=== PATIENT | male | born 1950 | race Caucasian/White ===

== ENCOUNTER 2018-08-21 14:33 | Inpatient (IN) ==
--- NOTE | 2018-08-21 15:01 | Diag Imaging Result Doc PS360 ---
EXAM: CT HEAD W/O CONTRAST 08/21/2018 HISTORY: LEFT SIDED NUMBNESS TECHNIQUE: This exam was performed using automated exposure control, adjustment of mA or kV according to patient size, and/or use of iterative reconstruction technique. COMMENT: There is no evidence of mass effect, bleed, abnormal extra-axial fluid collection, or hydrocephalus. There is a small lacune in the thalamus on the right. There is hyperostosis of the calvarium which is otherwise intact. The paranasal sinuses are clear. IMPRESSION: Chronic ischemic changes. No evidence of acute intracranial disease. Electronically signed by Rob Adamson 08/21/2018 2:59 PM
--- NOTE | 2018-08-21 15:26 | PROVIDER DOCUMENTATION ---
HPI-Chest Pain - General Chief Complaint: Chest Pain Stated Complaint: CHEST TIGHTNESS,LEFT ARM TINGLING,COUGHING Time Seen by Provider: 08/21/18 15:12 Source: patient Allergies/Adverse Reactions: Patient Allergies Allergy/AdvReac Type Severity Reaction Status Date / Time No Known Allergies Allergy Verified 08/21/18 15:35 Home Medications: Home Medication List Medication Instructions Recorded Confirmed Last Taken Type Carvedilol 25 mg PO BID 07/19/12 12/13/14 12/12/14 21:00 History Hydrocodone Bit/Acetaminophen 0 each PO PRN PRN 12/13/14 12/13/14 Unknown History [Hydrocodon-Acetaminoph 7.5-325] Insulin Aspart [Novolog] 0 unit SQ TID 12/13/14 12/13/14 12/12/14 22:00 History Insulin Glargine [Lantus] 60 unit SUBQ QHS 12/13/14 12/13/14 12/12/14 23:30 History Mycophenolate Mofetil [Cellcept] 250 mg PO BID 12/13/14 12/13/14 12/12/14 21:00 History Nifedipine [Nifedipine ER] 60 mg PO QAM 12/13/14 12/13/14 12/12/14 09:00 History Pravastatin Sodium 80 mg PO HS 12/13/14 12/13/14 12/12/14 21:00 History Prednisone 5 mg PO QAM 12/13/14 12/13/14 12/12/14 09:00 History Pregabalin [Lyrica] 50 mg PO DAILY 12/13/14 12/13/14 12/12/14 21:00 History Tacrolimus 0.5 mg PO BID 12/13/14 12/13/14 12/12/14 21:00 History Valacyclovir HCl [Valacyclovir] 1,000 mg PO TID 12/13/14 12/13/14 12/12/14 21:00 History - History of Present Illness-CP Location: reports: substernal Chest Pain Radiation: reports: no radiation Quality of Pain: reports: tightness Severity in ED: mild Onset/Duration: just prior to arrival Timing: improving Context/Activities at Onset: reports: none Modifying Factors: improves with: nothing Associated Symptoms: reports: denies symptoms Nitro Today/Relief: no nitro taken today Aspirin Treatment Today: no aspirin today Similar Symptoms Previously?: No Recently Seen Here or By Another Healthcare Provider: No Review of Systems - Adult - REVIEW OF SYSTEMS - ADULT Constitutional: reports: no symptoms reported Eyes: reports: no symptoms reported Ears, Nose, Mouth & Throat: reports: no symptoms reported Cardiovascular: reports: no symptoms reported Respiratory: reports: no symptoms reported Gastrointestinal: reports: no symptoms reported Genitourinary: reports: no symptoms reported Musculoskeletal: reports: no symptoms reported Integumentary: reports: no symptoms reported Neurological: reports: numbness (L Side), other (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) Psychiatric: reports: no symptoms reported Endocrine: reports: no symptoms reported Hematologic/Lymphatic: reports: no symptoms reported Allergic/Immunologic: reports: no symptoms reported Past History - Adult - PAST MEDICAL HISTORY-ADULT Review of Records: reports: Nursing Assessment Review Cardiovascular: reports: HTN, ND Respiratory: reports: denies history Gastrointestinal: reports: denies history Obstetrical/Gynecological: reports: denies history Genitourinary: reports: ESRD, other (kidney transplant) Neurological: reports: denies history Psychiatric: reports: denies history Endocrine/Immune: reports: denies history, Diabetes - PRIOR SURGERIES/PROCEDURES Surgical/Procedure History: reports: appendectomy, other (kidney transplant) - IMMUNIZATION STATUS Childhood Immunizations: See Nurse Assessment Flu Vaccine: See Nurse Assessment Physical Exam-General - PHYSICAL EXAM-ADULT Initial Vital Signs Reviewed: Yes - CONSTITUTIONAL General Appearance: appears well, alert, no apparent distress - EYES Eyes: PERRL/EOMI, pink conjunctivae - HEAD, EARS, NOSE, MOUTH & THROAT HENMT: normocephalic/atraumatic, moist mucous membranes - NECK Neck: non-tender, full range of motion - RESPIRATORY Respiratory: chest non-tender, lungs clear - CARDIOVASCULAR Cardiovascular: normal peripheral pulses, regular rate, rhythm - GASTROINTESTINAL (ABDOMEN) Abdominal Exam: normal bowel sounds, non tender - LYMPHATIC Lymphatic: no adenopathy - MUSCULOSKELETAL Back Exam: normal inspection Extremity: normal range of motion, non-tender - SKIN Integumentary: normal color, normal turgor - NEUROLOGIC Neurologic: grossly normal - PSYCHIATRIC Psych/Mental Status: normal mood/affect, oriented x 3 - HEART Score HEART Score: History: Moderately Suspicious HEART Score: ECG: Normal HEART Score: Age: > or = 65 Years HEART Score: Risk Factors for Atherosclerotic Disease: 1 or 2 Risk Factors Progress - PLAN OF CARE/RESULTS Progress/Plan/Lab Results: Vital Signs - 8 hr 08/21/18 14:55 08/21/18 17:57 08/21/18 18:02 Temperature 98.3 F 97.7 F Pulse Rate 68 67 66 Respiratory Rate 18 21 14 Blood Pressure 163/80 172/86 167/82 O2 Sat by Pulse Oximetry 95 95 95 Laboratory Results - last 24 hr 08/21/18 08/21/18 08/21/18 15:11 15:11 15:11 WBC 7.25 RBC 4.29 L Hgb 12.3 L Hct 39.6 L MCV 92.3 MCH 28.7 MCHC 31.1 L RDW Std Deviation 13.9 Plt Count 157 MPV 11.8 H Immature Gran % (Auto) 0.3 Neut % (Auto) 78.7 H Lymph % (Auto) 10.8 L Braxton % (Auto) 7.9 Eos % (Auto) 1.9 Baso % (Auto) 0.4 Immature Gran # (Auto) 0.02 Neut # (Auto) 5.71 Lymph # (Auto) 0.78 L Braxton # (Auto) 0.57 Eos # (Auto) 0.14 Baso # (Auto) 0.03 PT 13.7 INR 0.97 PTT (Actin FS) 26.8 Sodium 141 Potassium 5.4 H Chloride 108 H Carbon Dioxide 23 L Anion Gap 10 BUN 32 H Creatinine 1.7 H Estimated GFR/1.73 m2 40 BUN/Creatinine Ratio 19 Glucose 134 H Calculated Osmolality 290 Calcium 9.5 Troponin T 08/21/18 08/21/18 15:11 17:32 WBC RBC Hgb Hct MCV MCH MCHC RDW Std Deviation Plt Count MPV Immature Gran % (Auto) Neut % (Auto) Lymph % (Auto) Braxton % (Auto) Eos % (Auto) Baso % (Auto) Immature Gran # (Auto) Neut # (Auto) Lymph # (Auto) Braxton # (Auto) Eos # (Auto) Baso # (Auto) PT INR PTT (Actin FS) Sodium Potassium Chloride Carbon Dioxide Anion Gap BUN Creatinine Estimated GFR/1.73 m2 BUN/Creatinine Ratio Glucose Calculated Osmolality Calcium Troponin T 0.015 < 0.010 Orders Category Date Time Status Blood Glucose Finger Stick [FSBS/Accucheck Result] NOW Care 08/21/18 15:19 Active Nursing- Obtain EKG ONCE Care 08/21/18 15:19 Active CHEST-1 VIEW [RAD] Stat Exams 08/21/18 15:[address] HEAD W/O CONTRAST [CT] Stat Exams 08/21/18 14:44 Completed BASIC METABOLIC PANEL [CHEM] Stat Lab 08/21/18 15:11 Completed CBC WITH ELECTRONIC DIFF [HEME] Stat Lab 08/21/18 15:11 Completed PROTIME WITH INR [COAG] Stat Lab 08/21/18 15:11 Completed PTT [COAG] Stat Lab 08/21/18 15:11 Completed TROPONIN T Stat Lab 08/21/18 15:11 Completed TROPONIN T Stat Lab 08/21/18 17:32 Completed 0.9% Sodium Chloride Inj [Ns] 1,000 ml Med 08/21/18 16:08 Discontinued IV 999 mls/hr Aspirin Med 08/21/18 16:52 Discontinued 325 mg PO NOW ONE EKG [EKG] Stat Ther 08/21/18 15:19 Ordered Result Diagrams: 08/21/18 15:11 08/21/18 15:11 - REASSESSMENT Reassessment #1 Time Reassessed: 16:14 (Spoke with [facility] (MD carter) ) Status: unchanged Reassessment #2 Time Reassessed: 17:06 (Spoke with Dr. Curry ([facility] financial sales associate, he reports this is not far from baseline. Continue w/u for CP/Neuro Symptoms ) Status: unchanged Reassessment #3 Time Reassessed: 18:07 (Hospitalist Paged, CERAMICS TEST ENGINEER request call back at 7pm ) Status: unchanged Reassessment #4 Time Reassessed: 19:04 (hospiitalist paged) Status: unchanged - EKG 1 Time of EKG reading by physician:: 14:38 EKG Read and Signed by:: Lance Hernandez Rate: 67 Rhythm: NSR Echo: normal QRS: LBB CA Interval: normal ST Wave: normal Prior EKG Comparison: no prior EKG - XRAY 1 XRAY Study: Chest Impression: Normal, See EMR Report (COMMENT: The inspiration is somewhat suboptimal. There is no evidence of acute cardiac or pulmonary disease otherwise.) Comparison with other Films: no prior study XRAY Interpretation: The inspiration is somewhat suboptimal. There is no evid ence of acute proce - CT/MRI 1 CT Study: Head Impression: Normal Comparison with other Films: no prior study CT Results: IMPRESSION: Chronic ischemic changes. No evidence of acute intracranial dis Departure - Departure Date of Disposition Decision: 08/21/18 Time of Disposition Decision: 19:55 DIAGNOSIS: TIA (transient ischemic attack), Chest pain, atypical Disposition: ADMITTED INPATIENT 09 Certified Medical Emergency: Emergent Condition: Stable Referrals and Follow-Ups: Kartik Crump MD [Primary Care Provider] - - Critical Care Note This patient required my direct & personal management of CC.: No Attestation - Physician/ AIDE Attestation Patient care was provided by Advanced Practice Provider:: Yes Advanced Practice Provider documentation review:: The Mid-level provider documentation, treatment plan and medical decision making was reviewed by the physician who agrees with all treatment and medical decision making by the MLP. The physician spent face to face time with patient:: No Advanced Practice Provider documentation review:: Supervising physician onsite and consulted in the evaluation and care of this patient. The physician did not have a face to face encounter with the patient.
--- NOTE | 2018-08-21 15:28 | Diag Imaging Result Doc PS360 ---
EXAM: CHEST-1 VIEW 08/21/2018 HISTORY: CP TECHNIQUE: AP portable upright at 1522 COMMENT: The inspiration is somewhat suboptimal. There is no evidence of acute cardiac or pulmonary disease otherwise. IMPRESSION: Poor inspiration. Electronically signed by Rob Adamson 08/21/2018 3:26 PM
[2018-08-21 15:32] LABS: BASO# 0.03 X1000 (0.0-0.2); BASO% 0.4 % (0.0-0.8); EOS# 0.14 X1000 (0.0-0.7); EOS% 1.9 % (0.0-10.0); HEMATOCRIT 39.6 % (42.0-52.0); HEMOGLOBIN 12.3 g/dL (14.0-18.0); IMM GRAN# 0.02 X1000 (0.0-0.04); IMM GRAN% 0.3 % (0.0-0.5); LYMPH# 0.78 X1000 (1.2-3.4); LYMPH% 10.8 % (20.5-51.1); MCH 28.7 PG (27-31); MCHC 31.1 g/dL (33-37); MCV 92.3 FL (81-99); MONO# 0.57 X1000 (0.11-0.59); MONO% 7.9 % (1.7-9.3); MPV 11.8 FL (7.4-10.4); NEUT# 5.71 X1000 (1.4-6.5); NEUT% 78.7 % (42.2-75.2); PLT 157 X1000 (130-400); RBC 4.29 XMIL (4.7-6.1); RDW 13.9 % (11.5-14.5); WBC 7.25 X1000 (4.8-10.8)
[2018-08-21 15:44] LABS: INR 0.97; PROTIME 13.7 Seconds (11.0-16.0); PTT 26.8 Seconds (22.3-41.8)
[2018-08-21 15:47] LABS: CALCIUM 9.5 mg/dL (8.8-10.2); CREATININE 1.7 mg/dL (0.7-1.2); POTASSIUM 5.4 mmol/L (3.5-5.1)
[2018-08-21] MEDS ORDERED: NS 1,000 ML IV ONE (16:08)
[2018-08-21] MEDS ORDERED: ASPIRIN PO ONE (16:52)
--- NOTE | 2018-08-21 22:07 | HISTORY AND PHYSICAL ---
PRIMARY CARE PHYSICIAN: Dr. Kartik Crump. CHIEF COMPLAINT: Left-sided weakness. HISTORY OF PRESENTING ILLNESS: A 68-year-old male with a history of hypertension, diabetes mellitus type 2, hyperlipidemia presented to emergency department with 1-day history of having left-sided weakness. The patient apparently was in his backyard. Then all of a sudden, he states that his legs became weak, and his left arm also became weak. He was brought to the emergency department, and his symptoms apparently had resolved by that time; however, due to his presenting symptoms, he will require admission for further management. At the time of my examination, patient denied any headache, fever, chills, chest pain, shortness of breath, hemoptysis, melena, weight changes but complained of left-sided weakness, which has improved. PAST MEDICAL HISTORY: Includes hypertension, diabetes mellitus type 2, hyperlipidemia. PAST SURGICAL HISTORY: Renal transplant 6 years ago at [place] and appendectomy. ALLERGIES: No known drug allergies. CURRENT MEDICATIONS: Include carvedilol 25 mg p.o. b.i.d., [place] 7.5 mg p.o. t.i.d., Lantus 60 units subcutaneous at bedtime, CellCept 250 mg p.o. b.i.d., nifedipine 60 mg p.o. q.a.m., Pravastatin 80 mg p.o. at bedtime, Prednisone 5 mg p.o. q.a.m., Lyrica 50 mg p.o. daily, tacrolimus 0.5 mg p.o. b.i.d., valacyclovir 1000 mg p.o. t.i.d. SOCIAL HISTORY: He is a former smoker. No history of alcohol or illicit drug use. FAMILY HISTORY: No history of coronary artery disease. REVIEW OF SYSTEMS: Fourteen-point review of systems is as in HPI. Other systems negative. PHYSICAL EXAMINATION: GENERAL: Cooperative, friendly male. He is resting more comfortably now. VITAL SIGNS: Temperature 97.7 degrees, pulse 67, respirations 21, blood pressure 172/86. HEENT: Atraumatic, normocephalic. Extraocular movements intact. PERRLA. NECK: Supple. CHEST: Clear to auscultation. CARDIOVASCULAR: Regular rate and rhythm. ABDOMEN: Soft. Positive bowel sounds. EXTREMITIES: No edema. NEUROLOGIC: He is awake, alert, oriented x3. Speech is intact. Strength 5/5 in all extremities. GENITOURINARY: No bladder distention. SKIN: Warm. LABORATORIES AND STUDIES: WBC 7.25, hemoglobin 12.3, hematocrit 39.6, platelets 157,000, sodium 141, potassium 5.4, chloride 108, CO2 23, BUN is 32, creatinine is 1.7, glucose 134. Head CT: Chronic ischemic changes. No acute intracranial disease. Chest x-ray: No evidence of any acute cardiac or pulmonary disease. ASSESSMENT: A 68-year-old male with a history of hypertension, diabetes mellitus type 2, hyperlipidemia, who presented to emergency department with 1-day history of having left-sided weakness. The patient was brought to the emergency department, and symptoms have resolved; however, due to his presenting symptoms, he will need admission for further management. 1. Left-sided weakness, suspected transient ischemic attack. We will need to rule out cerebrovascular accident. 2. Hypertension. 3. Diabetes mellitus type 2. 4. Status post renal transplant. PLAN: 1. We will admit patient to medical floor with telemetry. 2. Continue with neuro checks. 3. We will consult neurologist for further evaluation of TIA. 4. We will monitor blood pressure closely. Resume antihypertensive agent. 5. We will monitor blood glucose and put patient on sliding scale insulin regimen. 6. We will restart patient's antirejection medications. 7. Put patient on DVT prophylaxis with SCDs. 8. We will continue to follow, reassess and make further recommendations based on patient's clinical course. cc: Cory Crump MD
[2018-08-22] MEDS: HUMALOG SUBQ SCH ×7 (06:20→21:25)
[2018-08-22 07:18] LABS: BASO# 0.02 X1000 (0.0-0.2); BASO% 0.4 % (0.0-0.8); EOS# 0.15 X1000 (0.0-0.7); EOS% 3.3 % (0.0-10.0); HEMATOCRIT 37.4 % (42.0-52.0); HEMOGLOBIN 11.5 g/dL (14.0-18.0); LYMPH# 0.82 X1000 (1.2-3.4); LYMPH% 17.9 % (20.5-51.1); MCH 28.7 PG (27-31); MCHC 30.7 g/dL (33-37); MCV 93.3 FL (81-99); MONO# 0.71 X1000 (0.11-0.59); MONO% 15.5 % (1.7-9.3); MPV 11.6 FL (7.4-10.4); NEUT# 2.87 X1000 (1.4-6.5); NEUT% 62.9 % (42.2-75.2); PLT 142 X1000 (130-400); RBC 4.01 XMIL (4.7-6.1); RDW 13.9 % (11.5-14.5); WBC 4.57 X1000 (4.8-10.8)
[2018-08-22 07:28] LABS: CREATININE 1.4 mg/dL (0.7-1.2); POTASSIUM 5.2 mmol/L (3.5-5.1)
--- NOTE | 2018-08-22 07:41 | EKG Report ---
Test Performed on : 08/21/2018 2:38:55 PM Test Reason : CP Blood Pressure : / mmHG Vent. Rate : 067 BPM Atrial Rate : 067 BPM P-R Int : 176 ms QRS Dur : 148 ms QT Int : 436 ms P-R-T Axes : 051 000 134 degrees QTc Int : 460 ms Normal sinus rhythm. Left bundle branch block Abnormal ECG When compared with ECG of 13-DEC-2014 02:10, No significant change was found Unconfirmed Result
[2018-08-22] MEDS ORDERED: COREG PO SCH (09:00)
[2018-08-22] MEDS ORDERED: LASIX PO SCH (09:00)
[2018-08-22] MEDS ORDERED: ADALAT CC PO SCH (09:00)
[2018-08-22] MEDS ORDERED: INSULIN PEN NEEDLES ONE (09:27)
[2018-08-22] MEDS: NEURONTIN PO SCH ×2 (10:31→21:23)
[2018-08-22] MEDS: CELLCEPT PO SCH ×2 (10:31→21:24)
[2018-08-22] MEDS: PREDNISONE PO SCH (10:31)
[2018-08-22] MEDS: VALTREX PO SCH ×3 (10:31→16:05)
[2018-08-22] MEDS: PROGRAF PO SCH ×2 (10:32→21:23)
--- NOTE | 2018-08-22 12:36 | PROGRESS NOTE ---
DATE: 08/22/2018 INTERVAL HISTORY: Patient was admitted for left-sided upper extremity and lower extremity weakness and numbness of about 2 hours' duration. When he came to the emergency room, his weakness had already resolved. However, he did have mild persistent numbness. 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 His EKG had a left bundle branch block without any atrial fibrillation. SUBJECTIVE: Right now, patient is feeling significantly better. Denies any more numbness and denies any weakness. He does have a known diagnosis of peripheral neuropathy though. We discussed about transient ischemic attack, etiology and prognosis. The patient's is also at bedside. VITAL SIGNS: Currently, temperature 97.6 degrees, pulse 68, blood pressure 186/73, saturating 94% on room air. PHYSICAL EXAMINATION: Morbidly obese. Not in any acute distress. Oral cavity is moist. No nasal congestion. Lungs: Air entry bilaterally equal. No wheeze, rhonchi, or crackles. Cardiovascular: S1, S2 normal. No murmur, rub, or gallop. Regular. Abdomen: Obese, soft, nontender. No lower extremity edema. Neurological Examination: He is alert and oriented x3. Cranial Nerve Examination: He does not have any obvious facial deformity. He is able to raise his eyebrows and smile. Extraocular movements are intact. Intact facial sensation. Speech and cough appear normal. Able to protrude his tongue outside. Shoulder shrug is also normal. Sensation, he has decreased crude touch sensation on the left thigh, left leg, and left foot as compared to right side. Power is 5/5 in both upper and lower extremities. I did not assess his gait. However, he was able to stand up without any imbalance and he was able to walk after the episode began at home. LABS: Currently suggestive of acceptable range of hemoglobin, hematocrit, and platelets, as well as WBC count. He does have hyperkalemia, potassium 5.2, what appears to be chronic kidney disease stage 3. His troponins were negative. No new microbiological data. CT scan imaging as mentioned above. ASSESSMENT AND PLAN: 1. Transient ischemic attack with history of old cerebrovascular accident, with persistent left- sided hemisensory loss affecting predominantly left lower extremity. His symptoms are concerning for transient ischemic attack. I will go ahead and evaluate with magnetic resonance imaging of the brain and we will also get ultrasound of his neck for carotid atherosclerosis ruling out. We will obtain echocardiogram. I discussed with him about outpatient cardiology visit and a 30 day event monitor. Continue him on aspirin and high-dose statin. Neurology has been consulted. 2. History of insulin-dependent diabetes mellitus type 2. Resume his home insulin and monitor blood sugars closely. Noticeably at the time of admission, his blood sugars were 134 so hyperglycemia contributing to his transient symptoms are unlikely at the moment and he did not have any other significant metabolic abnormality. 3. Essential hypertension, history of coronary artery disease, status post stent in 2011, and congestive heart failure. I am holding his carvedilol and nifedipine and irbesartan to allow permissive hypertension for the next 24 hours and will resume it later tomorrow. 4. History of hypertensive or diabetic nephropathy, status post renal transplant in 2012. Continue home mycophenolate mofetil, tacrolimus, prednisone, and valacyclovir. 5. Disposition. The patient remains inside the hospital as I await MR imaging and neurology evaluation. Based on that, further disposition will be planned. I would anticipate discharge in the next 24 hours pending brain imaging. Plan of care discussed with the patient and his at bedside. All of their questions have been satisfactorily answered extensively. cc: Nikunj Peace MD
[2018-08-22] MEDS: LASIX PO SCH ×2 (13:33→21:24)
[2018-08-22] MEDS: ASPIRIN PO SCH (13:34)
--- NOTE | 2018-08-22 14:38 | CONSULTATION ---
DATE OF CONSULTATION: 08/22/2018 REASON FOR CONSULT: TIA. HISTORY OF PRESENT ILLNESS: This is a 68-year-old right-handed male with history of hypertension, diabetes, hyperlipidemia and renal transplant who was admitted yesterday with transient left-sided symptoms. History is from the patient. He reports yesterday he was standing outside and had sudden onset of left upper and lower extremity weakness and numbness. 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 There was no facial asymmetry or speech disturbance. He denied other accompanying symptoms such as chest pain, shortness of breath, headache. He did not have other symptoms including, dizziness, lightheadedness etc. His weakness resolved by the time he went to his doctor's appointment shortly after onset. He was however still having some mild residual numbness during that visit and when he arrived in the emergency department. His symptoms completely resolved within a few hours. He is asymptomatic currently. Blood pressure is 163/[address] on arrival did not show acute findings. He denies previous clinical stroke or major neurologic event. PAST MEDICAL HISTORY: Hypertension, hyperlipidemia, type 2 diabetes, diabetic neuropathy, renal transplant 6 years ago at [place], coronary artery disease with stents placed I believe at [place], appendectomy. FAMILY HISTORY: No coronary disease. SOCIAL HISTORY: He is a former smoker. No alcohol or illicits. He is . ALLERGIES: No known drug allergies listed in the chart. MEDICATIONS: At home were reviewed in the chart include pravastatin 80 mg at night, [place], Lantus, carvedilol, CellCept, nifedipine, prednisone, Lyrica, tacrolimus and valacyclovir, aspirin 81 mg daily. REVIEW OF SYSTEMS: Balance of 12 was conducted and is otherwise negative except that detailed in the HPI. PHYSICAL EXAMINATION: Vital Signs: Afebrile. Blood pressure currently 186/73, pulse 60s to 70s, respirations 20, 94% on room air. Mr. Pineda is supine in bed with head of bed elevated. He is awake, alert, fully oriented. No language disturbance. No dysarthria. Follows simple and complex commands. Left, right digit distinction preserved. He is conversational. Pupils equal, round, and reactive to bright light. Gaze conjugate. Extraocular movements are full. Visual good intact direct confrontational testing. Face symmetric with equal activation. Facial sensation reported intact. Tongue is midline. He can hear. Palate elevates symmetrically. Shoulder shrug is full. No pronator drift. Tone is equal in the limbs. Strength is well- preserved in the arms and legs. He reports symmetric sensation to light touch in the arms and legs. Reflexes 1+ at the wrists, absent at the ankles, 1+ at the knees, no clonus. Plantar response is downgoing with excessive withdrawal. Rapid alternating movements [id number] and [id number] are intact. I did not test his gait. DIAGNOSTICS: Head CT noncontrast personally reviewed. No acute findings. There does appear to be a small lacune in the thalamus on the right. LABS: Reviewed in the chart. BUN of 30, creatinine of 1.4, blood sugars 130 to 370. ASSESSMENT AND PLAN: Transient ischemic attack with transient left hemiparesis and hemisensory loss. Currently asymptomatic. He has multiple vascular risk factors. Agree with stroke workup as you are doing. MRI, MRA are pending. Agree with echocardiogram and carotid Dopplers as well as telemetry. Consider terminal clerk event monitor at discharge if vascular imaging is unrevealing. Agree with the allowing some amount of permissive hypertension for the next day or so. Long-term he will need good control of his blood pressure, cholesterol and aggressive blood sugar management. I would check a lipid panel on him and consider increasing to high potency statin therapy. Additionally since he has been taking aspirin 81 mg daily at home I would consider adding Plavix to that for 30 days followed by returning to aspirin monotherapy if this would not be a contraindication for this particular renal transplant patient. Thank you for the consultation. cc: Andie Garrett MD [facility] HOSPITALSteven
--- NOTE | 2018-08-22 14:53 | Diag Imaging Result Doc PS360 ---
EXAM: MRI BRAIN W/WO CONTRAST INDICATION: Rule out new CVA COMPARISON: None. FINDINGS: There is no evidence of acute infarct. There is mild patchy T2/FLAIR hyperintensity in the periventricular and subcortical white matter suggesting mild microangiopathy. There is a tiny chronic lacunar infarct involving the thalamus on the right. There is no discrete intracranial mass, mass effect, or intracranial hemorrhage. There is no evidence of abnormal intracranial enhancement. The surrounding soft tissues and bony structures are essentially unremarkable. IMPRESSION: Suggestion of mild white matter microangiopathy and a tiny chronic lacunar infarct involving the thalamus on the right. No evidence of acute intracranial pathology. Electronically signed by Bob Becker 08/22/2018 2:50 PM
--- NOTE | 2018-08-22 15:03 | Diag Imaging Result Doc PS360 ---
EXAM: MRA BRAIN W/O CONTRAST INDICATION: Left extremities numbness/weakness TECHNIQUE: 3-D axial [id number] images through the [place] were obtained. 3-D MIPS were then generated. COMPARISON: None. FINDINGS: There is no evidence of flow-limiting stenosis, vascular malformation, or cerebral aneurysm involving the arteries comprising the [place] including the anterior, middle, and posterior circulations. The basilar artery is patent. The distal vertebral arteries and the distal ICAs are widely patent. IMPRESSION: No cerebral artery flow-limiting stenosis identified. Electronically signed by Bob Becker 08/22/2018 3:01 PM
[2018-08-22] MEDS ORDERED: CRESTOR PO SCH (21:00)
[2018-08-22] MEDS ORDERED: BASAGLAR SUBQ SCH (21:00)
[2018-08-22] MEDS ORDERED: AVAPRO PO SCH (21:00)
--- NOTE | 2018-08-22 23:31 | ECHO REPORT ---
ORDER DATE: 08/21/2018 MEASUREMENTS: Left ventricular internal diameter in diastole 4.8, left ventricular internal diameter in systole 3.9, septal thickness 1.6, posterior wall thickness 1.6, aortic root 2.9, left atrium 5.0. SUMMARY: 1. Technically difficult study due to limited acoustic window quality. 2. Mild sclerosis of trileaflet aortic valve demonstrated with normal aortic valve opening evident. Peak gradient across the aortic valve is 13 mmHg. Mitral annular calcification is demonstrated. Tricuspid valve is without evidence of structural abnormality with mild tricuspid regurgitation. Estimated systolic PA pressure by Doppler is 40 mmHg, suggesting mild pulmonary hypertension. Pulmonic valve is not well demonstrated. The aortic root is normal in size. 3. Normal left ventricular chamber size with moderate concentric left hypertrophy demonstrated. Estimated left ventricular ejection fraction appears to be least 55%. No regional wall motion abnormality can be appreciated. Doppler suggests grade 1 left ventricular diastolic dysfunction. Left atrium is moderately enlarged. Right atrium and right ventricle are grossly normal in size. 4. No pericardial effusion. 5. Appearance of inferior vena cava suggests normal central venous pressure. cc: MD Cory Perdomo MD
[2018-08-23] MEDS: HUMALOG SUBQ SCH ×4 (06:14→12:35)
[2018-08-23] MEDS: CELLCEPT PO SCH (08:24)
[2018-08-23] MEDS: ASPIRIN PO SCH (08:24)
[2018-08-23] MEDS: LASIX PO SCH (08:25)
[2018-08-23] MEDS: PROGRAF PO SCH (08:30)
[2018-08-23] MEDS: PREDNISONE PO SCH (08:30)
[2018-08-23] MEDS: NEURONTIN PO SCH (08:30)
[2018-08-23] MEDS ORDERED: PLAVIX PO SCH (11:30)
--- NOTE | 2018-08-23 11:50 | PROGRESS NOTE ---
DATE: 08/23/2018 Mr. Pineda has not had any more episodes of left-sided numbness. He believes his left limb power, coordination, and sensation are all completely back to normal. His report to me is that he had prominent difficulty with the left limbs for 15 or 20 minutes and then a lingering "going to sleep" sensation in the left limbs for several hours after that. He reports transient odd feeling for 20-30 minutes 8 days before the recent episode. There was not a definite focal neurologic feature to that earlier episode. He has risk factors for cerebrovascular ischemic problems as outlined by Dr. Garrett in her neurology evaluation earlier. Brain MRA was unremarkable. Echocardiogram showed no source of embolus. Carotid ultrasound has been done with report pending. Noncontrast CT and brain MRI both showed right thalamic lacune which does not appear to be acute. On exam today, he is awake, alert, attentive, appropriate. Speech is not dysarthric. Language function is intact on brief bedside testing. Memory is good. Visual good are intact tested by confrontational finger counting. Extraocular movements are full. Facial sensation and motility are normal and symmetric. Gag is intact. Tongue and palate are midline. He has normal power in the limbs, equal on the left and right. Limb tone is symmetric. He did well on finger to nose testing bilaterally. He performed rapid alternating movements symmetrically with the hands. I did not test his gait. IMPRESSION: Possible TIA, nondominant hemisphere involved. Current imaging findings do not appear to be acute and the right thalamic lesion may be old, clinically "silent" infarction. He has been taking aspirin regularly. I think it would be reasonable to add clopidogrel short- term, probably 3 months if tolerated. I discussed potential bleeding risk at length with the patient and . I encouraged him to be aggressive with management of his blood sugar, blood pressure, and lipids. Thanks for asking neurology to see Mr. Pineda. cc: MD KARLIE Nova III
[2018-08-23 12:04] VITALS: BP 171/77
[2018-08-23] MEDS ORDERED: COREG PO SCH (14:00)
--- NOTE | 2018-08-23 15:09 | PROGRESS NOTE ---
DATE: 08/23/2018 ADDENDUM: To discharge summary dictated by the nurse practitioner. I agree with most components of discharge summary. 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 MRA did not detect any abnormalities. Ultrasound carotid was pending. However, on clinical examination, he does not have any carotid bruit. He is denying any more numbness and tingling or decreased sensation of left side. PHYSICAL EXAMINATION: Vital signs: Temperature 98 degrees, pulse 80, respiratory 15, blood pressure 170/76, saturating 95% room air. General: Not in acute distress. HEENT: Oral cavity is moist Chest: No wheeze, rhonchi, crackles. Cardiovascular: S1, S2 normal. No murmur or gallop. Abdomen: Obese, nontender. Extremities: No lower extremity edema. Neurologic: Alert and oriented x3. Sensory is nonfocal. Motor is nonfocal. LABORATORY DATA: No new labs today. ASSESSMENT: 1. Transient ischemic attack. 2. History of insulin-dependent diabetes mellitus type 2. 3. Essential hypertension. 4. Hypertensive diabetic nephropathy status post renal transplant in 2012. PLAN: The patient would be discharged on aspirin and high-dose statin. Plavix has been added and he has been given 1 month prescription. He should follow up with his outpatient head of ict about a 30 day event monitor. Plan of care discussed with the patient and his at bedside. All of their questions have been answered satisfactorily. cc: Nikunj Peace MD MTDD
--- NOTE | 2018-08-23 18:33 | Carotid Study ---
DATE: 08/21/2018 PROCEDURE: Carotid duplex imaging. REFERRING PHYSICIAN: Cory Crump MD. INTERPRETING PHYSICIAN: Wili Caputo MD. TECH: [email or web address]. INDICATIONS: TIA. OBSERVED DATA RIGHT LEFT Brachial Blood Pressure Carotid Pulse Bruits: Carotid/Sub DIAGRAM OF ULTRASOUND IMAGING R L RIGHT INT EXT INT EXT LEFT Addy (cm/s) Addy (cm/s) Subclavian 180/0 Subclavian 203/0 CCA Proximal 97/6 CCA Proximal 76/5 CCA Distal 77/4 CCA Distal 103/4 Bulb 82/6 Bulb 125/7 ICA Proximal 90/7 ICA Proximal 110/8 ICA Mid 208/29 ICA Mid 86/9 ICA Distal 91/9 ICA Distal 70/12 ECA 232/4 ECA 207/0 Vertebral 93/6 Vertebral 73/6 ICA/CCA Ratio 2.1 ICA/CCA Ratio 1.1 % Stenosis 60-79 % Stenosis 40-59 FINDINGS: There is a calcific plaque in the midportion of the right internal carotid artery which is producing a severe stenosis. On the left side, there is scattered irregular calcific plaque at the takeoff of the left internal carotid artery which is producing a moderate stenosis. INTERPRETATION: Bilateral plaque disease as described above, which is approaching hemodynamic significance on the right side and is not hemodynamically significant on the left. cc: MD Cory Carrera MD
--- NOTE | 2018-08-23 20:46 | DISCHARGE SUMMARY ---
ADMISSION DATE: 08/21/2018 DISCHARGE DATE: 08/23/2018 ADMISSION DIAGNOSES: 1. Left-sided weakness, suspected transient ischemic attack, rule out cerebrovascular accident. 2. Hypertension. 3. Diabetes mellitus, type 2. 4. Status post renal transplant. DISCHARGE DIAGNOSES: 1. Transient ischemic attack with history of old cerebrovascular accident and persistent left- sided hemisensory loss affecting predominantly the left lower extremity. 2. Diabetes mellitus type 2, insulin dependent. 3. Essential hypertension with history of coronary artery disease and stent in 2011. Antihypertensives were held for permissive hypertension. 4. Congestive heart failure. 5. History of diabetic nephropathy. He has had a renal transplant in 2012 due to that. Immunosuppression medications were continued. HOSPITAL COURSE: Mr. Pineda Pineda is a 68-year-old male with a history of hypertension, diabetes mellitus type 2, hyperlipidemia, and stroke in the past that had left him with left-sided weakness. He presented to the emergency room with one-day history of worsening left-sided weakness. Apparently he was in his backyard and suddenly his legs became weak. His left arm also became weak. He presented to the emergency department and his symptoms had resolved by that time. They admitted for further workup to rule out TIA versus CVA. Initial head CT showed chronic ischemic changes but no acute findings. He had a brain MRI that showed a tiny chronic lacunar infarct involving the thalamus on the right which could be the reason why he is still with left- sided weakness. He had an MRA as well, but it was okay. Neurology saw the patient, who recommended long-term care of controlling blood pressure, cholesterol, and blood glucose management and while the patient was here for permissive hypertension. Recommended aspirin daily, consider adding Plavix for 30 days, and then returning to aspirin monotherapy if it was not a contraindication for renal transplant patient. He was stable and is going to be discharged home to follow up with Neurology as an outpatient. DISCHARGE VITAL SIGNS: Temperature 97.7, heart rate 68, respiratory rate 22, blood pressure 180/74, O2 saturation 96% on room air. DISCHARGE LAB DATA: All obtained yesterday on 08/22/2018, white blood cells 4,000, hemoglobin 11, hematocrit 37, platelet count 142. Sodium 140, potassium 5.2, BUN 30, creatinine 1.4, glucose today is 232, calcium yesterday is 9.0. PERTINENT IMAGING: On 08/21/2018, he had a head CT with chronic ischemic changes, nothing acute. Chest x-ray with poor inspiration, but nothing acute. Echocardiogram showed a pulmonary pressure of 40 mmHg suggesting mild pulmonary hypertension; normal left ventricular ejection fraction of 55%; no other abnormal findings. There was mild sclerosis of the trileaflet aortic valve but normal valve opening evident. On 08/22/2018 he had a brain MRI which showed mild white matter microangiopathy and a tiny chronic lacunar infarct involving the thalamus on the right; nothing else acute. Brain MRA - there was no stenosis identified. He had an EKG that showed normal sinus rhythm with a left bundle branch block. Rate was 67. QTC is 460. DISCHARGE ACTIVITY: As tolerated and take care to prevent falls. DISCHARGE DIET: Diabetic. DISCHARGE INSTRUCTIONS: If your condition changes, contact your physician and/or return to the emergency department. Changes may include but are not limited to shortness of breath, increased fatigue, excessive bleeding, unexplained weight loss or gain, unimaginable pain, or signs or symptoms of infection. DISCHARGE MEDICATIONS: 1. Insulin glargine 90 units subcutaneously nightly. 2. Irbesartan 300 mg p.o. nightly. 3. Carvedilol 12.5 mg p.o. twice daily. 4. CellCept 250 mg p.o. twice daily. 5. Neurontin 300 mg p.o. twice daily. 6. Burney 7.5 as needed. 7. Lasix 40 mg p.o. daily. 8. Nifedipine extended release 30 mg p.o. daily. 9. Insulin aspart 20 units subcutaneously t.i.d. 10.Prednisone 5 mg p.o. daily. 11.Tacrolimus 0.5 mg p.o. twice daily. 12.Aspirin 81 mg p.o. daily. 13.Plavix 75 mg p.o. daily for 30 days only and then return from dual treatment of aspirin and Plavix down to just aspirin daily. DISCHARGE DISPOSITION: Home. Dictated by ISAAK Maxwell for Nikunj Peace MD cc: ISAAK Maxwell MD I agree with above mentioned components of discharge summary. A separate addendum has been dictated. [facility]ERSteven
== END 2018-08-23 16:55 | disposition home or self-care (01) | DRG 69 ==
LOC: ED 14:33 → 3N 22:35 → SUATTDRO 22:35
PROVIDERS: ATTEND Internal Medicine
CPT/HCPCS: 70450; 70544; 70553; 71010; 71045; 80048; 82948; 84484; 85025; 85610; 85730; 93005; 93306; 93880; 99285; A9270; A9579; J1815; J7030; J7506; J7512; J7517; XXXXX

== ENCOUNTER 2018-08-24 11:27 | Inpatient (IN) ==
--- NOTE | 2018-08-24 11:47 | PROVIDER DOCUMENTATION ---
HPI-Neurological Disorder - General Chief Complaint: Stroke-Like Symptoms Stated Complaint: L-LEG NUMB/L-ARM WEAK Time Seen by Provider: 08/24/18 11:35 Source: patient Allergies/Adverse Reactions: Patient Allergies Allergy/AdvReac Type Severity Reaction Status Date / Time No Known Allergies Allergy Verified 08/24/18 11:46 Home Medications: Home Medication List Medication Instructions Recorded Confirmed Last Taken Type Carvedilol 12.5 mg PO BID 07/19/12 08/24/18 08/24/18 History Insulin Aspart [Novolog] 20 unit SQ TID 12/13/14 08/24/18 08/24/18 History Mycophenolate Mofetil [Cellcept] 250 mg PO BID 12/13/14 08/24/18 08/24/18 History Prednisone 5 mg PO QAM 12/13/14 08/24/18 08/24/18 History Tacrolimus 0.5 mg PO BID 12/13/14 08/24/18 08/24/18 History Furosemide [Lasix] 40 mg PO DAILY 08/21/18 08/24/18 08/24/18 History Gabapentin 300 mg PO BID 08/21/18 08/24/18 08/24/18 History Irbesartan 300 mg PO QHS 08/21/18 08/24/18 08/24/18 History Nifedipine [Nifedipine ER] 30 mg PO DAILY 08/21/18 08/24/18 08/24/18 History Insulin Glargine [Basaglar] 90 unit SUBQ QHS 08/22/18 08/24/18 08/23/18 History Rosuvastatin Calcium [Crestor] 40 mg PO QHS 08/22/18 08/24/18 08/24/18 History Aspirin 81 mg PO DAILY #30 chewtab 08/23/18 08/24/18 08/24/18 Rx Clopidogrel [Plavix] 75 mg PO DAILY #30 tab 08/23/18 08/24/18 08/24/18 Rx Azithromycin 1 tab PO BID 08/24/18 08/24/18 08/24/18 History - History of Present Illness-Neuro Headache Location: denies: frontal, temporal, occipital, parietal, global, other Severity: reports: mild Onset/Duration: reports: abrupt, 1-3 hours ago Timing: reports: improving Context: reports: none Approximate time patient was last seen normal?: 10:30 Character of Altered Mental Status: reports: N/A Character of Deficits: reports: new weakness, decreased ability to walk (L SIDE WEAK UPPER AND LOWER) New weakness or altered sensation location:: reports: LUE, LLE Cognitive Baseline: alert, oriented x3 Gait Baseline: walks without assistance Associated Symptoms: reports: denies symptoms Similar Symptoms Previously?: Yes (RECENT ADMIT FOR SAME SYMPTOMS) Recently seen or treated by another doctor?: Yes (SEE PREVIOUS NOTED) Review of Systems - Adult - REVIEW OF SYSTEMS - ADULT Constitutional: reports: no symptoms reported. denies: see HPI, chills, fever, fatique, night sweats, weight gain, weight loss, other Eyes: reports: no symptoms reported. denies: see HPI, discharge, dry eyes, decreased vision, blurred vision, double vision, eye pain, redness, other Ears, Nose, Mouth & Throat: reports: no symptoms reported. denies: see HPI, ear discharge, ear pain, hearing loss, tinnitus, epistaxis, sinus problem, nose pain, loose teeth, mouth/dental pain, mouth swelling, hoarseness, throat pain, throat swelling, other Cardiovascular: reports: no symptoms reported. denies: see HPI, chest pain, edema, heart murmur, irregular heart rate, orthopnea, palpitations, poor circulation, PND, syncope, other Respiratory: reports: no symptoms reported. denies: see HPI, chronic cough, cough, dyspnea on exertion, excessive sputum production, hemoptysis, pleurisy, shortness of breath, wheezing, other Gastrointestinal: reports: no symptoms reported. denies: see HPI, abdominal pain, hematemesis, constipation, diarrhea, difficulty swallowing, frequent heartburn, nausea, poor appetite, rectal bleeding, vomiting, other Genitourinary: reports: no symptoms reported. denies: see HPI, dysuria, discharge, frequency, flank pain, frequent UTI's, hematuria, hesitency, incontinence, urinary retention, urgency, other Musculoskeletal: reports: muscle weakness (LUE/LLE). denies: no symptoms reported, see HPI, bone pain, back pain, frequent leg cramps, joint pain, joint swelling, muscle aches, neck pain, other Integumentary: reports: no symptoms reported. denies: see HPI, hives, hair loss, itching, mole changes, nail changes, rash, skin sores/ulcer, skin thickening, other Neurological: reports: other (L SIDE WEAKNESS). denies: no symptoms reported, see HPI, ataxia, dizziness/vertigo, headache/migraines, loss of balance, numbness, paresthesia, seizure, slurred speech, syncope, tremors Psychiatric: reports: no symptoms reported. denies: see HPI, anxiety, anti- depressant use, alcohol/drug dependence, depression, emotional problems, insomnia, panic attacks, suicidal thoughts, other Hematologic/Lymphatic: reports: no symptoms reported. denies: see HPI, blood clots, easy bruising, low blood count, lymphedema, prolonged bleeding, swollen lymph nodes, transfusions, other Allergic/Immunologic: reports: no symptoms reported. denies: see HPI, allergic reactions, allergic rhinitis, asthma, eczema, food allergy, frequent infections, hay fever, hives, positive PPD, urticaria, other Past History - Adult - PAST MEDICAL HISTORY-ADULT Review of Records: reports: Nursing Assessment Review, Social history reviewed & non-contributory. Cardiovascular: reports: HTN, ID Respiratory: reports: denies history Gastrointestinal: reports: denies history Obstetrical/Gynecological: reports: denies history Genitourinary: reports: ESRD, other (kidney transplant) Neurological: reports: denies history Psychiatric: reports: denies history Endocrine/Immune: reports: denies history, Diabetes - PRIOR SURGERIES/PROCEDURES Surgical/Procedure History: reports: appendectomy, other (kidney transplant) - IMMUNIZATION STATUS Childhood Immunizations: See Nurse Assessment Flu Vaccine: See Nurse Assessment Physical Exam- Neurological - Physical Exam-Neuro Initial Vital Signs Reviewed: Yes General Appearance: appears well, alert, no apparent distress Eye Exam: bilateral eye: normal inspection, PERRL, EOMI HENMT: normocephalic/atraumatic, moist mucous membranes, normal ENT inspection Head Injury: no evidence of injury Neck: non-tender, full range of motion Respiratory: chest non-tender, lungs clear, normal breath sounds Cardiovascular: normal peripheral pulses, regular rate, rhythm Abdominal Exam: normal bowel sounds, non tender Lymphatic: no adenopathy 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 Exam: normal hearing, normal speech, PERRL Coordination/Gait: normal finger to nose Motor/Sensory: weak motor strength LUE, weak motor strength LLE Neurologic: grossly normal Integumentary: normal color, normal turgor, warm/dry Psych/Mental Status: normal mood/affect, oriented x 3 - Glascow Coma Scale Best Eye Response: (4) open spontaneously Best Verbal Response: (5) oriented Best Motor Response: (6) obeys commands Progress - PLAN OF CARE/RESULTS Progress/Plan/Lab Results: Vital Signs - 8 hr 08/24/18 11:30 08/24/18 11:44 08/24/18 12:08 Temperature 97.5 F L Pulse Rate 78 77 70 Respiratory Rate 16 19 19 Blood Pressure 112/64 101/49 103/52 O2 Sat by Pulse Oximetry 92 L 92 L 94 L 08/24/18 12:09 08/24/18 12:10 08/24/18 12:20 Temperature Pulse Rate 71 72 74 Respiratory Rate 19 20 24 Blood Pressure O2 Sat by Pulse Oximetry 94 L 93 L 92 L 08/24/18 13:44 Temperature Pulse Rate 74 Respiratory Rate 21 Blood Pressure 124/61 O2 Sat by Pulse Oximetry 94 L Laboratory Results - last 24 hr 08/24/18 08/24/18 08/24/18 11:41 12:25 12:25 WBC 6.68 RBC 4.48 L Hgb 12.9 L Hct 40.8 L MCV 91.1 MCH 28.8 MCHC 31.6 L RDW Std Deviation 14.0 Plt Count 148 MPV 11.9 H Immature Gran % (Auto) 0.0 Neut % (Auto) 74.1 Lymph % (Auto) 11.4 L [place] % (Auto) 12.0 H Eos % (Auto) 2.2 Baso % (Auto) 0.3 Immature Gran # (Auto) 0.00 Neut # (Auto) 4.95 Lymph # (Auto) 0.76 L [place] # (Auto) 0.80 H Eos # (Auto) 0.15 Baso # (Auto) 0.02 PT INR PTT (Actin FS) Sodium 138 Potassium 4.9 Chloride 103 Carbon Dioxide 24 L Anion Gap 11 BUN 45 H Creatinine 2.2 H Estimated GFR/1.73 m2 30 BUN/Creatinine Ratio 20 Glucose 129 H POC Glucose 176 H Calculated Osmolality 289 Calcium 9.3 Total Bilirubin 1.02 H AST 11 ALT 14 Alkaline Phosphatase 63 Creatine Kinase 185 Troponin T Total Protein 6.7 Albumin 4.3 Globulin 2.4 Albumin/Globulin Ratio 1.8 08/24/18 08/24/18 12:25 12:25 WBC RBC Hgb Hct MCV MCH MCHC RDW Std Deviation Plt Count MPV Immature Gran % (Auto) Neut % (Auto) Lymph % (Auto) [place] % (Auto) Eos % (Auto) Baso % (Auto) Immature Gran # (Auto) Neut # (Auto) Lymph # (Auto) [place] # (Auto) Eos # (Auto) Baso # (Auto) PT 13.5 INR 0.96 PTT (Actin FS) 27.6 Sodium Potassium Chloride Carbon Dioxide Anion Gap BUN Creatinine Estimated GFR/1.73 m2 BUN/Creatinine Ratio Glucose POC Glucose Calculated Osmolality Calcium Total Bilirubin AST ALT Alkaline Phosphatase Creatine Kinase Troponin T 0.021 Total Protein Albumin Globulin Albumin/Globulin Ratio Orders Category Date Time Status Admit - [facility] Routine AdmDCTranf 08/24/18 14:34 Active Activity - Up with Assistance ORDERED Care 08/24/18 14:32 Active Apply Mechanical Device [QM] ORDERED Care 08/24/18 15:44 Active Cardiac Monitoring DIRECTED Care 08/24/18 11:35 Active FSBS/Accucheck Result AC + HS Care 08/24/18 14:32 Active Finger Stick Blood Sugar (ED) DIRECTED Care 08/24/18 11:35 Active Intake and Output-Strict ORDERED Care 08/24/18 15:44 Active Nursing- Assist w/ IS as order ORDERED Care 08/24/18 15:44 Active Nursing- MD Consult Request ROUTINE Care 08/24/18 13:07 Active Nursing- MD Consult Request ROUTINE Care 08/24/18 14:32 Active Oxygen Therapy- ED Nursing DIRECTED Care 08/24/18 11:35 Active Saline Loc NOW Care 08/24/18 11:35 Active Vital Signs Order Q 4-HR ASSESS Care 08/24/18 15:44 Active Z-Document. for Tele Applied ORDERED Care 08/24/18 15:44 Completed MD [Physician/Provider Consults] Routine Cons 08/24/18 13:06 Ordered Physician/Provider Consults Routine Cons 08/24/18 14:32 Ordered Social Service Consult Routine Cons 08/24/18 15:44 Active Diabetic Diet Diet 08/24/18 14:32 Active CHEST-PORTABLE [RAD] Stat Exams 08/24/18 11:[address] HEAD W/O CONTRAST [CT] Stat Exams 08/24/18 11:35 Completed CBC WITH DIFF [HEME] Routine Lab 08/25/18 06:00 Ordered CBC WITH ELECTRONIC DIFF [HEME] Stat Lab 08/24/18 12:25 Completed CK PROFILE [SP CHEM] Routine Lab 08/25/18 06:00 Ordered CK PROFILE [SP CHEM] Stat Lab 08/24/18 12:25 Completed COMPREHENSIVE METABOLIC PANEL [CHEM] Routine Lab 08/25/18 06:00 Ordered COMPREHENSIVE METABOLIC PANEL [CHEM] Stat Lab 08/24/18 12:25 Completed MAGNESIUM [CHEM] Routine Lab 08/25/18 06:00 Ordered PROTIME WITH INR [COAG] Routine Lab 08/25/18 06:00 Ordered PROTIME WITH INR [COAG] Stat Lab 08/24/18 12:25 Completed PTT [COAG] Routine Lab 08/25/18 06:00 Ordered PTT [COAG] Stat Lab 08/24/18 12:25 Completed TROPONIN T Routine Lab 08/25/18 06:00 Ordered TROPONIN T Stat Lab 08/24/18 12:25 Completed TSH Routine Lab 08/25/18 06:00 Ordered 0.9% Sodium Chloride Inj [Ns] 1,000 ml Med 08/24/18 13:08 Discontinued IV 999 mls/hr Acetaminophen [Tylenol] Med 08/24/18 14:32 Active 650 mg PO Q6H PRN PRN Albuterol 2.5MG/Ipratrop 0.5MG [Duoneb (A & A)] Med 08/24/18 16:00 Active 3 ml INH RTQ6H Aspirin Med 08/25/18 09:00 Active 81 mg PO DAILY Azithromycin [Zithromax] Med 08/24/18 21:00 Active 250 mg PO BID Budesonide [Pulmicort] Med 08/24/18 19:30 Active 0.5 mg INH RTBID Furosemide [Lasix] Med 08/25/18 09:00 Active 40 mg PO DAILY Gabapentin [Neurontin] Med 08/24/18 21:00 Active 300 mg PO BID Insulin Glargine [Lantus Insulin] Med 08/24/18 21:00 Active 90 unit SUBQ QHS Insulin Human Regular [Humulin R] Med 08/24/18 16:00 Active See Protocol SUBQ 0700,1100,1600,2100 Insulin Lispro [Humalog] Med 08/24/18 17:00 Active 20 units SUBQ TID CC Mycophenolate Mofetil [Cellcept] Med 08/24/18 21:00 Active 250 mg PO BID Ondansetron [Zofran] Med 08/24/18 14:32 Active 4 mg IV Q4H PRN PRN Prednisone Med 08/25/18 09:00 Active 5 mg PO QAM ROSUVAstatin [Crestor] Med 08/24/18 21:00 Active 40 mg PO QHS Tacrolimus [Prograf] Med 08/24/18 21:00 Active 0.5 mg PO BID Aerosol Treatments Routine Oth 08/24/18 14:32 Completed Incentive Spirometer Routine Oth 08/24/18 15:44 Completed Oxygen Device Routine Oth 08/24/18 15:44 Completed Pulse Oximetry Routine Ot 08/24/18 15:44 Completed Telemetry [OM.EQ] Routine Oth 08/24/18 15:44 Active EKG [EKG] Routine Ther 08/25/18 08:00 Ordered EKG [EKG] Stat Ther 08/24/18 11:35 Draft Physical Therapy Eval/Treatment [OM.PT] Routine Ther 08/24/18 15:44 Active Transfer/Admit Order [TRANSFER] Routine Transfer 08/24/18 14:27 Completed Result Diagrams: 08/24/18 12:25 08/24/18 12:25 - REASSESSMENT Reassessment #1 Time Reassessed: 12:14 (REVIEWED FINDINGS FROM PREVIOUS ADMISSION ECHO AND DOPPLER STUDIES) Status: unchanged Reassessment #2 Time Reassessed: 12:54 (VASCULAR SX PAGED, PER HOSPITALIST REQUEST) Status: improving Reassessment #3 Time Reassessed: 12:59 (SPOKE WITH DR ANTON WHO REPORTS DR RAYMOND IS IN [place]OWN. WILL CONTACT DR RAYMOND) Reassessment #4 Time Reassessed: 13:29 (DR RAYMOND IN [place], WILL CALL AFTER SURGERY COMPLETE) - EKG 1 Time of EKG reading by physician:: 11:37 EKG Read and Signed by:: Rita Raymond EKG Interpretation (*Must complete 3 of following elements*): Abnormal Rate: 77 Rhythm: NSR [place]: normal QRS: LBB CO Interval: normal ST Wave: normal Prior EKG Comparison: unchanged from prior Departure - Departure Date of Disposition Decision: 08/24/18 Time of Disposition Decision: 12:54 DIAGNOSIS: Carotid arterial disease, TIA (transient ischemic attack) Disposition: ADMITTED INPATIENT 09 Certified Medical Emergency: Emergent Condition: Stable - Critical Care Note This patient required my direct & personal management of CC.: No Attestation - Physician/ AIDE Attestation Patient care was provided by Advanced Practice Provider:: Yes Advanced Practice Provider:: Rita Raymond Advanced Practice Provider documentation review:: The Mid-level provider documentation, treatment plan and medical decision making was reviewed by the physician who agrees with all treatment and medical decision making by the MLP. The physician spent face to face time with patient:: No Advanced Practice Provider documentation review:: Supervising physician onsite and consulted in the evaluation and care of this patient. The physician did not have a face to face encounter with the patient. - NIH Stroke Scale Level of Consciousness: 0-Alert LOC Questions (ask month and age): 0-Answers Both Correctly LOC Commands (ask to open & close eyes;make a fist, let go): 0-Obeys Both Correctly Best Gaze (horizontal eye movement): 0-Normal Visual (use finger movement, counting or visual threat): 0-No Visual Loss Facial Palsy (show teeth or raise eyebrows & close eyes tght: 0-Symmetrical Movement Motor Function-left arm: 1-Drift Motor Function-right arm: 0-Normal Motor Function-left le-Drift Motor Function-right le-Normal Limb Ataxia([id number], or heel to [place]): 0-No Ataxia Sensory(pin prick to face,arms,trunk,legs-compare side/side): 0-No Ataxia Best Language(name item/read sentence.Ex-Down to [place]): 0-No Aphasia Dysarthria(Pt read words or say words Ex.Mama,Tip-Top,Thanks: 0-Normal Articulation Extinction and Inattention: 0-Normal NIH Total Score: 2 Stroke tPA Guidelines - Inclusion Criteria for IV tPA 18 years old or older: Yes Ischemic stroke with measurable deficit: Yes Onset <3 hours ago *OR* 3-4.5 hours ago: Yes - Exclusion Criteria for IV tPA Evidence of intracranial hemorrhage on CT: No Presentation suggest SAH: No CT reveals defined area of hypodensity: No Evidence of AVM, neoplasm, aneurysm: No Seizure at stroke onset: No Active internal bleeding or acute trauma: No Platelet Count Less Than 100,000: No Heparin Within Last 48 HRS (PTT >Lab normal limits): No INR > 1.7 (warfarin use): No Use IIB/IIIA inhibitors within 24 hours: Yes Serious Head Trauma Within Last 3 Months: No Arterial Puncture Within Last 7 Days: No Lumbar Puncture Within Last 7 Days: No Repeated systolic Blood Pressure >185 or Diastolic >110: No - Additional Exclusion Criteria for IV tPA Currently on Coumadin: No Patient older than 80: No Prior stroke and diabetes: No Baseline NIHSS score > 25: No - Relative Contraindications to IV tPA CT reveals extensive area of infarct (>1/3 MCA territory): No Minor or rapidly improving stroke symptoms: No Major Surgery or Serious Trauma In Previous 14 Days: No AMI within 3 months: No Gastrointestinal or Urinary Tract hemorrhage in Past 21 Days: No Post - AMI pericarditis: No Blood Glucose Less Than 50 mg/dl or Greater Than 400 mg/dl: No
--- NOTE | 2018-08-24 12:02 | Diag Imaging Result Doc PS360 ---
CHEST-PORTABLE - 08/24/2018 INDICATION: ams COMPARISON: 08/21/2018 FINDINGS: The lungs are normally expanded and clear. Heart size and mediastinal contours are normal. No pneumothorax or pleural effusion. IMPRESSION: Negative exam. Electronically signed by Maynor Navarro 08/24/2018 12:00 PM
--- NOTE | 2018-08-24 12:11 | Diag Imaging Result Doc PS360 ---
EXAM: CT HEAD W/O CONTRAST 08/24/2018 HISTORY: Head injury TECHNIQUE: This exam was performed using automated exposure control, adjustment of mA or kV according to patient size, and/or use of iterative reconstruction technique. COMMENT: There is mild generalized cerebral and cerebellar atrophy. There is no evidence of mass effect, bleed, or abnormal extra-axial fluid collection. There is a small lacune in the right thalamus which was also present at the time the previous study of 08/21/2018. There is hyperostosis frontalis interna. The visualized paranasal sinuses are clear. There is no evidence of acute bony abnormality. IMPRESSION: Chronic microvascular ischemic changes. No evidence of acute intracranial disease. Electronically signed by Rob Adamson 08/24/2018 12:09 PM
--- NOTE | 2018-08-24 12:23 | EKG Report ---
Test Performed on : 08/24/2018 11:37:33 AM Test Reason : ams Blood Pressure : / mmHG Vent. Rate : 077 BPM Atrial Rate : 077 BPM P-R Int : 176 ms QRS Dur : 148 ms QT Int : 418 ms P-R-T Axes : 041 000 162 degrees QTc Int : 473 ms Normal sinus rhythm. Left bundle branch block Abnormal ECG When compared with ECG of 21-AUG-2018 14:38, (Unconfirmed) T wave inversion more evident in Lateral leads Unconfirmed Result
[2018-08-24 12:41] LABS: BASO# 0.02 X1000 (0.0-0.2); BASO% 0.3 % (0.0-0.8); EOS# 0.15 X1000 (0.0-0.7); EOS% 2.2 % (0.0-10.0); HEMATOCRIT 40.8 % (42.0-52.0); HEMOGLOBIN 12.9 g/dL (14.0-18.0); LYMPH# 0.76 X1000 (1.2-3.4); LYMPH% 11.4 % (20.5-51.1); MCH 28.8 PG (27-31); MCHC 31.6 g/dL (33-37); MCV 91.1 FL (81-99); MPV 11.9 FL (7.4-10.4); NEUT# 4.95 X1000 (1.4-6.5); NEUT% 74.1 % (42.2-75.2); PLT 148 X1000 (130-400); RBC 4.48 XMIL (4.7-6.1); WBC 6.68 X1000 (4.8-10.8)
[2018-08-24 12:49] LABS: PTT 27.6 Seconds (22.3-41.8)
[2018-08-24 12:50] LABS: INR 0.96; PROTIME 13.5 Seconds (11.0-16.0)
[2018-08-24 12:58] LABS: ALB/GLOB RATIO 1.8; ALBUMIN 4.3 g/dL (3.5-5.0); CALCIUM 9.3 mg/dL (8.8-10.2); CREATININE 2.2 mg/dL (0.7-1.2); POTASSIUM 4.9 mmol/L (3.5-5.1); TOTAL BILIRUBIN 1.02 mg/dL (0.20-1.00); TOTAL PROTEIN 6.7 g/dL (6.3-8.3)
[2018-08-24] MEDS ORDERED: NS 1,000 ML IV ONE (13:08)
[2018-08-24] MEDS ORDERED: ZOFRAN IV PRN (14:32)
[2018-08-24] MEDS ORDERED: TYLENOL PO PRN (14:32)
[2018-08-24] MEDS ORDERED: DUONEB (A & A) INH SCH (16:00)
[2018-08-24] MEDS ORDERED: KEFZOL 1 GM/D5W 1 GM/50 ML IVPB IV ONE (16:37)
--- NOTE | 2018-08-24 17:11 | GENERAL SURGERY CONSULTATION ---
DATE: 08/24/2018 HISTORY OF PRESENT ILLNESS: Ms. Pineda is 68 years old and is admitted today with a TIA involving the left arm and left leg. He had an episode similar to this on Tuesday. He was admitted on Tuesday. Workup included a CT of the head, brain MRI, brain MRA, and carotid Dopplers. This revealed plaque in his right internal carotid estimated at 60 to 79% narrowing. There was no evidence of acute ischemic stroke. However, the event that led to his admission on the was a loss of function of his arm and leg where he could not walk or move his arm. This lasted for about 30 minutes. The episode today that caused readmission was similar, affecting his left arm and leg and lasted about an hour. His function has now returned to normal. He has been taken off his blood pressure medicines so that he will not become hypotensive and increase the risk for another episode. PAST MEDICAL HISTORY: His other medical problems include hypertension, insulin-dependent diabetes, hyperlipidemia. He has a history of a renal transplant 6 years ago. PAST SURGICAL HISTORY: Previous surgery also includes an appendectomy. MEDICATIONS AT HOME: Coreg 25 mg b.i.d., Lantus 60 units at bedtime, CellCept 250 mg b.i.d., nifedipine 60 mg q.a.m., pravastatin 80 mg at bedtime, prednisone 5 mg a day, Lyrica 50 mg daily, tacrolimus 0.5 mg p.o. b.i.d., valacyclovir 1000 mg p.o. t.i.d. I think he has been taken off his blood pressure medicine since his discharge. ALLERGIES: He has no known drug allergies. SOCIAL HISTORY: He is a former smoker. He is . Denies alcohol or illicit drugs. FAMILY HISTORY: Not significant is he has a longevity in his family including his father. REVIEW OF SYSTEMS: As above. He does have a cough that has come on to him recently. Other subsystems are negative. Denies any significant heart problems except for some congestive failure symptoms. PHYSICAL EXAMINATION: Vital signs: He is afebrile. Heart rate 70, blood pressure 124/61. Lungs: He has bilateral breath sounds. Heart: Regular rate and rhythm. Abdomen: Soft. Extremities: He has good strength that is +5/+5 in both upper extremities and both lower extremities. Neurologic: His speech is completely normal and he mentates normally. LABORATORY: BUN is 45, creatinine 2.2. Labs otherwise normal. ASSESSMENT: Significant right internal carotid stenosis with recurrent transient ischemic attacks involving his right hemisphere. PLAN: The plan will be a right carotid endarterectomy. I have discussed the alternatives, the risks and benefits of surgery. He understands and wants to proceed. cc: Jose Zamora MD
[2018-08-24] MEDS: HUMULIN R SUBQ SCH ×2 (17:37→21:38)
--- NOTE | 2018-08-24 17:44 | HISTORY AND PHYSICAL ---
PRIMARY CARE PROVIDER: Dr. Kartik Crump. CHIEF COMPLAINT: Left-sided weakness. HISTORY OF PRESENT ILLNESS: Mr. Pineda Pineda is a 68-year-old male with a medical history of hypertension, diabetes mellitus type 2, hyperlipidemia and an old small lacunar infarct in the right thalamus who presented on 08/21/2018 with complaints of sudden onset of left-sided weakness that lasted for at least a hour. He could not move his leg or his arm and was admitted here for a full evaluation. He was suspected to have a TIA because symptoms had fully resolved but continues to have from an old stroke persistent left-sided hemisensory deficit, specifically in the left lower extremity but also in the left thumb that has been chronic. He had all of his pertinent imaging performed which was a head CT which showed nothing acute at that time. Echocardiogram showed some mild pulmonary hypertension, but the EF was normal. He had a brain MRI which showed a chronic lacunar infarct in the right thalamus as well but there was nothing acute on that. On the brain MRA there was no stenosis. Today, his symptoms have resolved; but during his stay, we allowed for permissive hypertension. We held antihypertensives due to that. He states that he felt much better the whole time he was here. When he was discharged home on the , he resumed his home medications which included his beta yasemin, Coreg 12.5 mg twice a day. He states just prior to coming here prior to the last admission his primary care provider had decreased his Coreg from 25 to 12.5 because the patient felt like he was having blood pressure problems. Here, he states he started having around 10 o'clock today sudden onset of numbness, a little dizziness, his head felt a little heavy and the left side of his body was real heavy. That also lasted for at least an hour or maybe more. When he presented, he presented with lower blood pressures primarily, anywhere from 101-112 at the most. The only thing that had not resulted prior to his discharge was his carotid ultrasound that was negative for carotid bruit. When the carotid ultrasound was reviewed today, it revealed that he had a decently significant amount of carotid stenosis in the right carotid artery. Dr. Zamora was notified by phone who is happy to see this gentleman while he is here, especially given the symptoms. So, we will admit to the medical floor. He is currently essentially symptom-free. We will allow for permissive hypertension and have him evaluated for possible carotid endarterectomy. PAST MEDICAL HISTORY: 1. Chronic lacunar infarct involving right thalamus with left-sided persistent hemisensory loss and in the left thumb but mostly in the left lower extremity. 2. Hypertension. 3. Pulmonary artery hypertension with 40 mmHg systolic pressures. 4. Congestive heart failure but EF is good at 55%. 5. Hyperlipidemia. 6. Diabetes mellitus Type 2. 7. Peripheral diabetic neuropathy. 8. History of renal transplant with chronic kidney disease. PAST SURGICAL HISTORY: 1. Renal transplant at [facility] in 2012. 2. Appendectomy. 3. Cardiac stents in 2011. SOCIAL HISTORY: He quit smoking a while back. He denies alcohol or illicit drug use. FAMILY HISTORY: Negative for carotid disease, coronary disease or stroke. ALLERGIES: No known drug allergies. HOME MEDICATIONS: 1. Insulin glargine 9 units subcu nightly. 2. Crestor 40 mg p.o. nightly. 3. Irbesartan 300 mg p.o. nightly. 4. Azithromycin 250 mg p.o. twice daily. 5. Carvedilol 12.5 mg p.o. twice daily. 6. CellCept 250 mg p.o. twice daily. 7. Neurontin 300 mg p.o. twice daily. 8. Lasix 40 mg p.o. daily. 9. Nifedipine Extended Release 30 mg p.o. daily. 10.NovoLog insulin 20 units subcu t.i.d. 11.Prednisone 5 mg p.o. daily. 12.Tacrolimus 0.5 mg p.o. twice daily. 13.Aspirin 81 mg p.o. daily. 14.Plavix 75 mg p.o. daily. REVIEW OF SYSTEMS: A 14-point review of systems was complete and negative except as mentioned in the HPI. PHYSICAL EXAMINATION: VITAL SIGNS: Temperature 97.5, heart rate 71, respiratory rate 16, blood pressure 124/61, O2 saturation 95% on room air. GENERAL: Mr. Pineda Pineda is a 68-year-old male. He is in no acute distress. He is able to answer questions appropriately. HEENT: Atraumatic. Just the left corner of his mouth slightly droops at the resting phase; but when he smiles, he appears equal. Tongue is midline. Pupils are equal and reactive. He definitely has right hemianopsia with his right peripheral vision essentially gone. Extraocular movements are intact. Mucous membranes are moist. NECK: Trachea is midline. CARDIOVASCULAR: S1 and S2. Regular rate and rhythm. No rubs, gallops or murmurs. He has trace lower extremity edema. +2 dorsalis and radial pulses. Negative JVD or carotid bruits. LUNGS: Mild expiratory wheezes noted. No accessory muscle use or work of breathing noted. He is tolerating room air. ABDOMEN: Round abdomen, soft, nontender and nondistended. Positive bowel sounds x 4. EXTREMITIES: Moves all extremities equally. Good range of motion. Decreased sensory in the left foot and left thumb. NEUROLOGIC: Alert and oriented x 3. Follows commands. Sensory deficit noted in the left foot and the left thumb. SKIN: Warm, dry and intact. LABORATORY DATA: White blood cells 6000, hemoglobin 12, hematocrit 40, platelet count 148,000, INR 0.96, PTT 27.6, sodium 138, potassium 4.9, BUN 45, creatinine 2.2, glucose 129, calcium 9.3, bilirubin 1.02, AST 11, ALT 14, CK 185, troponin 0.021, albumin 4.3. IMAGING: Chest x-ray negative exam. Head CT chronic microvascular ischemic changes. No evidence of acute intracranial disease. EKG normal sinus rhythm. Rate 77. QTc 473. ASSESSMENT AND PLAN: 1. Strokelike symptoms that are intermittent that affect the left side with newly found bilateral carotid artery disease, right worse than the left, with stenosis of 60-79% and left carotid artery has 40-59%. Symptoms are intermittent depending on if his blood pressure is low. So, we are going to hold the beta yasemin for now but will probably have to resume eventually back on a very low dose. Currently holding his ARB but may consider resuming that as well because is supposed to protect his kidney after renal transplant. Neurology is consulted, and Dr. Zamora will see him as well for the carotid artery stenosis. Will allow for permissive hypertension. He does better with higher blood pressures. He was discharged yesterday with dual antiplatelet therapy and is on Plavix 75 p.o. daily and aspirin 81 mg p.o. daily. Will hold the Plavix for now in case there is going to be a surgical repair in the future. If not, then we need to resume it. 2. Expiratory wheezes. He kind of sounds like he has maybe an upper respiratory infection, but it is not obvious on the x-ray. He was discharged home with azithromycin 250 mg p.o. twice a day. We will just go ahead and continue that. 3. Diabetes mellitus Type 2. Will do pattern blood glucoses, sliding scale insulin. 4. Pulmonary hypertension. Continue Lasix but monitor his kidney function. 5. Mild acute kidney injury on CKD with renal transplant history. Will continue with immunosuppression medications as prescribed. Will give him some fluids today and recheck in the morning. 6. Congestive heart failure history although ejection fraction looks good on his last admission. 7. Essential hypertension with history of coronary artery disease and stent in 2011. 8. DVT prophylaxis. Currently on aspirin and SCDs. Dictated by ISAAK Maxwell for Kwesi Goldstein MD Patient seen and examined by me face to face, all the laboratory, images and vitals signs were reviewed, the patient presented to the emergency department with left sided weakness, he has been recently discharge for the same cause and treated like TIA, at the moment of my physical exam his symptoms were resolved, we notice that at the moment of his symptoms he was borderline hypotensive, he has bilateral carotid arterial disease, right greater than left, up to 79% stenosis which can be related to his symptomatology, we consulted surgery department who decided to do a carotid endarterectomy on this patient, patient agree with the plan, will be on telemetry, I agree with the [employer]'s assessment and plan, Kwesi Portillo MD. cc: ISAAK Maxwell MD MTDD
[2018-08-24] MEDS: HUMALOG SUBQ SCH (17:53)
[2018-08-24] MEDS: DELSYM LIQUID PO PRN (18:41)
--- NOTE | 2018-08-24 20:27 | CONSULTATION ---
DATE OF CONSULTATION: 08/24/2018 NEUROLOGY CONSULTATION NOTE: LOCATION: Room [facility]. HISTORY OF PRESENT ILLNESS: Mr. Pineda is 68 years old and he had another episode of left-sided weakness and numbness. He reports noticing numbness involving the left leg while seated. He attempted to stand and left leg was heavy and weak. He had similar tingling and heaviness in the left arm. His head felt heavy, but there was not headache. There was not facial asymmetry noted. There was no vision disturbance. Speech was not affected. Episode began about 10:00 am and resolved in approximately 90 minutes. He feels well now. This was identical to episode he had several days ago except duration was 15 to 20 minutes with the earlier episode. He had a sense of feeling weak and heavy all over for 20 minutes almost 2 weeks ago. He has had some other brief episodes of feeling heavy or weak all over without definite focal features. He admits today that if the episode today had occurred while he was sitting quietly, not attempting to use his left limbs, he might not have known it occurred. He reports no missed doses with his current medicines. Noncontrast CT today is unremarkable. This shows the old small subcortical right hemisphere lacune which was seen on MRI earlier this week. Earlier this week, carotid ultrasound showed some plaque bilaterally approaching hemodynamic significance on the right. Earlier brain MRA was unremarkable. EXAMINATION: On exam, he is awake, alert, attentive, appropriate, conversant, oriented. Speech is not dysarthric. I observed him chewing and swallowing without difficulty. Language function is intact on brief bedside testing. Memory is good. Head and neck are unremarkable. He has full visual good tested by confrontational finger counting. Extraocular movements are full. Facial motility is symmetric. He has good power in arms and legs bilaterally. He did well on finger-to- nose testing bilaterally. Tone is symmetric in the arms. I did not test his gait. He reports symmetric sensation on gross testing over the limbs now. Proprioception is normal. IMPRESSION: Transient left-sided weakness and numbness. Again, as with prior episode, by the time he presented for evaluation, there was not a definite deficit. History is consistent with TIA and he has risk factors for cerebrovascular ischemic problems. He reports plans have been made for right carotid endarterectomy tomorrow. I do not have any urgent suggestions from a Neurology standpoint tonight. I would continue hydration, treat blood sugar and lipids aggressively, follow blood pressure cautiously. I encouraged him to be aggressive with management of his risk factors after surgery. Thanks for asking Neurology to see Mr. Pineda. cc: MD KARLIE Nova III
[2018-08-24] MEDS: DUONEB (A & A) INH SCH ×2 (20:30→23:44)
[2018-08-24] MEDS ORDERED: ZITHROMAX PO SCH (21:00)
[2018-08-24] MEDS: CRESTOR PO SCH (21:08)
[2018-08-24] MEDS: CELLCEPT PO SCH (21:08)
[2018-08-24] MEDS: NEURONTIN PO SCH (21:08)
[2018-08-24] MEDS: ZITHROMAX 500 MG/NS 500 MG/250 ML IVPB IV SCH (21:09)
[2018-08-24] MEDS: PROGRAF PO SCH (21:35)
[2018-08-24] MEDS: LANTUS INSULIN SUBQ SCH (21:37)
[2018-08-24] MEDS: PULMICORT INH SCH (23:44)
[2018-08-25] MEDS: DUONEB (A & A) INH SCH ×6 (03:40→23:30)
[2018-08-25 06:03] LABS: BASO# 0.02 X1000 (0.0-0.2); BASO% 0.5 % (0.0-0.8); EOS# 0.12 X1000 (0.0-0.7); EOS% 2.7 % (0.0-10.0); HEMATOCRIT 38.1 % (42.0-52.0); HEMOGLOBIN 12.1 g/dL (14.0-18.0); LYMPH# 0.83 X1000 (1.2-3.4); LYMPH% 18.9 % (20.5-51.1); MCH 29.2 PG (27-31); MCHC 31.8 g/dL (33-37); MONO# 0.72 X1000 (0.11-0.59); MONO% 16.4 % (1.7-9.3); MPV 11.7 FL (7.4-10.4); NEUT# 2.71 X1000 (1.4-6.5); NEUT% 61.5 % (42.2-75.2); PLT 143 X1000 (130-400); RBC 4.14 XMIL (4.7-6.1)
[2018-08-25] MEDS: ROCEPHIN 1 GM in NS 50 ML IV SCH (06:07)
[2018-08-25 06:11] LABS: PTT 28.8 Seconds (22.3-41.8)
[2018-08-25 06:21] LABS: ALB/GLOB RATIO 1.4; ALBUMIN 3.8 g/dL (3.5-5.0); CALCIUM 8.7 mg/dL (8.8-10.2); CREATININE 1.7 mg/dL (0.7-1.2); MAGNESIUM 1.9 mg/dL (1.5-2.7); POTASSIUM 4.7 mmol/L (3.5-5.1); TOTAL BILIRUBIN 0.49 mg/dL (0.20-1.00); TOTAL PROTEIN 6.6 g/dL (6.3-8.3)
[2018-08-25] MEDS: HUMULIN R SUBQ SCH ×4 (07:44→20:51)
--- NOTE | 2018-08-25 08:11 | EKG Report ---
Test Performed on : 08/25/2018 06:49:07 AM Test Reason : chest pain Blood Pressure : / mmHG Vent. Rate : 074 BPM Atrial Rate : 074 BPM P-R Int : 178 ms QRS Dur : 158 ms QT Int : 446 ms P-R-T Axes : 031 -03 164 degrees QTc Int : 495 ms Normal sinus rhythm. Left bundle branch block Abnormal ECG When compared with ECG of 24-AUG-2018 11:37, (Unconfirmed) No significant change was found Confirmed by Telma JARRETT, Jose ([id number]) on 08/25/2018 8:43:19 AM
[2018-08-25] MEDS: PULMICORT INH SCH ×3 (08:17→23:30)
[2018-08-25] MEDS: HUMALOG SUBQ SCH ×3 (08:30→15:59)
[2018-08-25] MEDS: PROGRAF PO SCH ×2 (08:31→23:32)
[2018-08-25] MEDS: NEURONTIN PO SCH ×2 (08:31→20:50)
[2018-08-25] MEDS: ASPIRIN PO SCH (08:32)
[2018-08-25] MEDS: CELLCEPT PO SCH ×2 (08:32→21:27)
[2018-08-25] MEDS: LASIX PO SCH (08:32)
[2018-08-25] MEDS: PREDNISONE PO SCH (08:33)
[2018-08-25] MEDS ORDERED: KEFZOL 1 GM/D5W 1 GM/50 ML IVPB IV ONE (09:00)
[2018-08-25] MEDS ORDERED: NITROGLYCERIN 50 MG/D5W 50 MG/250 ML IV.SOLN ONE (11:38)
[2018-08-25] MEDS ORDERED: ROBINUL ONE ×2 (11:40→13:11)
[2018-08-25] MEDS ORDERED: NEO-SYNEPHRINE ONE (11:45)
[2018-08-25] MEDS ORDERED: XYLOCAINE 1% ONE (11:49)
[2018-08-25] MEDS ORDERED: HEPARIN ONE (11:49)
[2018-08-25] MEDS ORDERED: NS 1,000 ML ONE (11:49)
[2018-08-25] MEDS ORDERED: KEFZOL ONE (11:49)
[2018-08-25] MEDS ORDERED: NS 500 ML ONE (11:49)
[2018-08-25] MEDS ORDERED: SENSORCAINE-MPF 0.5%/EPI 1:200,000 ONE (11:49)
[2018-08-25] MEDS ORDERED: QUELICIN (DOSE) ONE (12:02)
[2018-08-25] MEDS ORDERED: AMIDATE ONE (12:04)
[2018-08-25] MEDS ORDERED: FENTANYL ONE (12:05)
[2018-08-25] MEDS ORDERED: SOLU-CORTEF ONE (12:06)
[2018-08-25] MEDS ORDERED: HEPARIN (DOSE) ONE (13:05)
[2018-08-25] MEDS ORDERED: NEOSTIGMINE ONE (13:12)
[2018-08-25] MEDS ORDERED: DUONEB (A & A) INH ONE (14:29)
--- NOTE | 2018-08-25 14:59 | OPERATIVE NOTE ---
PROCEDURE DATE: 08/25/2018 PROCEDURE PERFORMED: Right carotid endarterectomy with patch angioplasty. SURGEON: Jose Zamora MD. SENIOR TECHNICAL ARCHITECT: ILIANA Farrell Dr., Z Naylor who assisted with exposure, and dissection and patch angioplasty. DESCRIPTION OF PROCEDURE: After satisfactory general endotracheal anesthesia was achieved the neck was turned to the left. The right side of the neck was prepped and draped in a sterile fashion. We made a transverse incision at the base of the neck where the bifurcation of the common carotid was present. We carried our incision through the subcutaneous tissue through the platysma. We then dissected along the anterior border of the sternocleidomastoid muscle. Small veins were ligated and divided. We identified the common carotid artery surrounded with an umbilical tape. We dissected out the external carotid surrounded with a large vessel loop. The internal carotid was dissected out and surrounded with a small vessel loop. 5000 units of heparin were given. After that had circulated for more than 5 minutes, we then occluded flow in the branch vessels with the vessel loops and clamped off the common carotid. We incised the common carotid with the 11 blade and extended with the Wang scissors up into the internal past the very irregular large plaque. We placed a 4 to 3 mm shunt. Clamp time was 1 minute. Under 2.5 loupe magnification, we then raised the plaque out of the common carotid, transected it proximally and then used a Rome tool to dissect it 1st out of the external then out of the internal. We irrigated the endarterectomized vessel with heparinized saline, removed all leaflets we could identify. We tacked the intima distally with three 7-0 Prolene stitches. We then obtained a 1 x 6 bovine patch and then sewed it with a 6-0 Prolene running stitch. As we neared completion of the patch angioplasty we back bled the external, removed the shunt from the internal and back bled it, then removed the shunt from the common and fore bled it and clamped the vessels once again. We finished the patch angioplasty. We held the internal closed, opened the external then the common after 5 seconds opened the internal. We did transiently clamp it again to place additional stitches along the patch angioplasty to achieve complete hemostasis. We then irrigated out the wound with Kefzol-impregnated saline. We placed a Jose drain within the wound. We secured it at the skin with 2-0 silk. Hemostasis remained satisfactory. We then proceeded to close the platysma with a running 3-0 Polysorb. Once again, injected with 0.5 Marcaine with epinephrine the subcutaneous tissue and dermis. We then closed the skin with a 4 Polysorb subcuticular stitch. Sterile dressing was applied. He tolerated it well. He was awakened at the time of this dictation. cc: Jose Zamora MD
[2018-08-25] MEDS ORDERED: NORCO-7.5 PO PRN (15:54)
--- NOTE | 2018-08-25 18:05 | GENERAL SURGERY PROGRESS NOTE ---
DATE: 08/25/2018 SUBJECTIVE: Bobby is doing well. OBJECTIVE: Neck: His trachea is in the midline. He has no significant swelling, no significant bleeding. Neurologic: Neurologically is fine. Will allow him to have liquids. Will resume his usual medications. cc: Jose Zamora MD
--- NOTE | 2018-08-25 18:31 | PROGRESS NOTE ---
DATE: 08/25/2018 SUBJECTIVE: This patient is status post right carotid endarterectomy with patch angioplasty today. He seems to be doing good. He is in the ICU at this moment. He is completely alert and oriented x3. He does not have any focal deficits, he is about to eat. We will monitor. OBJECTIVE: Vital Signs: Temperature 97.3, pulse 71, respiratory rate 25, blood pressure 149/61, oxygen saturation 96% on nasal cannula. HEENT: Head normocephalic. No trauma. PERRLA. Neck: Supple. No JVD. No masses. Central trachea. He does have a drain on the right side of the neck that is draining some blood. Chest: Clear to auscultation. No wheezing. No rales. Abdomen: Soft, nontender, nondistended. No hepatosplenomegaly. Extremities: No edema. No clubbing, no cyanosis. Neurological: The patient is alert and oriented x3. No focal deficits. LABORATORY: WBC 4.4, hemoglobin 12.1, hematocrit 38.1, platelets 143. Sodium 142, potassium 4.7, chloride 108, bicarbonate 24, BUN 40, creatinine 1.7, glucose 107, calcium 8.7. ASSESSMENT AND PLAN: 1. Admitted due to stroke-like symptoms that are intermittent affecting the left side of the body, with bilateral carotid artery disease, right worse than left with stenosis of around 60 to 79 percent, status post right carotid endarterectomy with patch angioplasty, this patient has been placed in the ICU. No focal deficits. He is completely awake, alert, and oriented x3, following commands. We will monitor. 2. Some expiratory wheezing without shortness of breath, he seems to be doing better today. We will continue with the same management. No obvious lesions on the x-ray. 3. Type 2 diabetes. Continue with pattern of blood sugar and sliding scale insulin. 4. Pulmonary hypertension. Continue with Lasix which is part of his home medication. 5. Dyslipidemia. Continue with statin. 6. History of pulmonary hypertension. Continue with Lasix. We will monitor his kidney function. 7. History of congestive heart failure, likely diastolic, no issues at this moment. 8. Hypertension with a history of coronary artery disease and stent in 2012, aware. 9. Deep vein thrombosis prophylaxis with sequential compression devices. cc: Kwesi Goldstein MD
[2018-08-25] MEDS: LANTUS INSULIN SUBQ SCH (20:51)
[2018-08-25] MEDS: CRESTOR PO SCH (20:51)
[2018-08-26] MEDS: ZITHROMAX 500 MG/NS 500 MG/250 ML IVPB IV SCH (00:11)
[2018-08-26] MEDS: HUMULIN R SUBQ SCH ×4 (06:02→21:32)
[2018-08-26] MEDS: ROCEPHIN 1 GM in NS 50 ML IV SCH (06:05)
[2018-08-26] MEDS: DUONEB (A & A) INH SCH ×6 (06:32→23:24)
[2018-08-26 06:33] LABS: BASO# 0.02 X1000 (0.0-0.2); BASO% 0.3 % (0.0-0.8); EOS# 0.05 X1000 (0.0-0.7); EOS% 0.9 % (0.0-10.0); HEMATOCRIT 36.5 % (42.0-52.0); HEMOGLOBIN 11.3 g/dL (14.0-18.0); IMM GRAN# 0.02 X1000 (0.0-0.04); IMM GRAN% 0.3 % (0.0-0.5); LYMPH# 0.92 X1000 (1.2-3.4); LYMPH% 15.9 % (20.5-51.1); MCV 93.6 FL (81-99); MONO# 0.63 X1000 (0.11-0.59); MONO% 10.9 % (1.7-9.3); MPV 12.2 FL (7.4-10.4); NEUT# 4.16 X1000 (1.4-6.5); NEUT% 71.7 % (42.2-75.2); PLT 131 X1000 (130-400); RDW 14.3 % (11.5-14.5)
[2018-08-26 06:53] LABS: CALCIUM 8.9 mg/dL (8.8-10.2); CREATININE 1.3 mg/dL (0.7-1.2); POTASSIUM 4.7 mmol/L (3.5-5.1)
[2018-08-26] MEDS: DELSYM LIQUID PO PRN (07:40)
[2018-08-26] MEDS: PULMICORT INH SCH ×2 (07:54→20:01)
--- NOTE | 2018-08-26 08:05 | PROGRESS NOTE ---
DATE: 08/26/2018 SUBJECTIVE: This patient seems to be doing good. He is completely awake, alert and oriented x3. No focal deficits. No numbness sensation. The diet has been advanced. The drain has been removed from his neck. He will transfer to the floor. We will continue with physical therapy. A- line has been removed as well. OBJECTIVE: Vital Signs: Temperature 98.4 degrees, pulse 73, respiratory rate 24, blood pressure 156/60, oxygen saturation 95% on 3 L of nasal cannula. HEENT: Head normocephalic, no trauma. PERRLA. Neck: Supple. No JVD. No masses. Central trachea. He does have a dressing covering the right side of his neck. Chest: Clear to auscultation. No wheezing. Some crepitus at the bases. Abdomen: Soft, nontender, nondistended. No hepatosplenomegaly. Extremities: No edema, no clubbing, no cyanosis. Neurological examination: The patient is completely alert and oriented x3. No focal deficits. LABORATORY: WBC 5.8, hemoglobin 11.3, hematocrit 36.5, platelets 131. Sodium 141, potassium 4.7, chloride 109, bicarbonate 24. BUN 32, creatinine 1.3, glucose 79, calcium 8.9. ASSESSMENT AND PLAN: 1. Admitted due to stroke-like symptoms that are intermittent affecting the left side of the body with bilateral carotid artery disease, right side worse than left with stenosis of around 60 to 79 percent, status post right carotid endarterectomy with patch angioplasty. This patient has been placed in the intensive care unit. No focal deficits. He is doing good. He will be transferred to the floor. Diet has been advanced. Drain has been removed, as well as the A- line. We will continue to monitor. 2. Some expiratory wheezing without shortness of breath upon admission. He is doing better. Continue with same management. 3. Type 2 diabetes. Blood sugar under control. Continue with same treatment. 4. Pulmonary hypertension. Continue with Lasix, which is part of his home medications. 5. Dyslipidemia. Continue with statins. 6. History of pulmonary hypertension. Continue with Lasix like I mentioned before. Kidney function at baseline. 7. History of congestive heart failure, likely diastolic, not in exacerbation. 8. Hypertension with a history of coronary artery disease and stent in 2012, aware. 9. Deep vein thrombosis prophylaxis. This patient has been placed on sequential compression devices. He is doing better. cc: Kwesi Goldstien MD
--- NOTE | 2018-08-26 08:23 | GENERAL SURGERY PROGRESS NOTE ---
DATE: 08/26/2018 TIME: 0720 hours. SUBJECTIVE: Mr. Pineda is doing generally well. OBJECTIVE: He is awake and alert, neurologically fine, moves all extremities. His trachea is in the midline. There is no significant neck swelling. He is afebrile with heart rate 73, blood pressure 156/60. PLAN: The plan will be to advance his diet, remove his drain, remove his art line, and transfer him up to a regular room. He should stay on aspirin. cc: Jose Zamora MD
[2018-08-26] MEDS: ASPIRIN PO SCH (08:44)
[2018-08-26] MEDS: PREDNISONE PO SCH (08:44)
[2018-08-26] MEDS: LASIX PO SCH (08:44)
[2018-08-26] MEDS: NEURONTIN PO SCH ×2 (08:44→21:31)
[2018-08-26] MEDS: HUMALOG SUBQ SCH ×3 (08:45→18:02)
[2018-08-26] MEDS: PROGRAF PO SCH ×2 (08:45→21:29)
[2018-08-26] MEDS: CELLCEPT PO SCH ×2 (08:45→21:30)
[2018-08-26] MEDS: ADALAT CC PO SCH (21:31)
[2018-08-26] MEDS: CRESTOR PO SCH (21:32)
[2018-08-26] MEDS: COREG PO SCH (21:32)
[2018-08-26] MEDS: AVAPRO PO SCH (21:32)
[2018-08-26] MEDS: LANTUS INSULIN SUBQ SCH (21:33)
[2018-08-27] MEDS: ZITHROMAX 500 MG/NS 500 MG/250 ML IVPB IV SCH ×2 (00:03→11:58)
[2018-08-27] MEDS: DUONEB (A & A) INH SCH ×6 (03:50→23:40)
[2018-08-27] MEDS: HUMULIN R SUBQ SCH ×4 (06:28→23:08)
[2018-08-27] MEDS: ROCEPHIN 1 GM in NS 50 ML IV SCH (06:28)
[2018-08-27] MEDS: DELSYM LIQUID PO PRN (06:32)
[2018-08-27 07:48] LABS: BASO# 0.02 X1000 (0.0-0.2); BASO% 0.4 % (0.0-0.8); EOS# 0.08 X1000 (0.0-0.7); EOS% 1.4 % (0.0-10.0); HEMATOCRIT 35.9 % (42.0-52.0); HEMOGLOBIN 11.1 g/dL (14.0-18.0); LYMPH# 0.85 X1000 (1.2-3.4); LYMPH% 15.2 % (20.5-51.1); MCH 28.7 PG (27-31); MCHC 30.9 g/dL (33-37); MCV 92.8 FL (81-99); MONO# 0.62 X1000 (0.11-0.59); MONO% 11.1 % (1.7-9.3); MPV 11.6 FL (7.4-10.4); NEUT# 4.01 X1000 (1.4-6.5); NEUT% 71.9 % (42.2-75.2); PLT 147 X1000 (130-400); RBC 3.87 XMIL (4.7-6.1); RDW 14.5 % (11.5-14.5); WBC 5.58 X1000 (4.8-10.8)
[2018-08-27 07:56] LABS: HEMOGLOBIN A1C 6.6 % (4.8-6.0)
[2018-08-27] MEDS: HUMALOG SUBQ SCH ×3 (08:00→18:15)
[2018-08-27 08:07] LABS: ALB/GLOB RATIO 1.5; ALBUMIN 3.8 g/dL (3.5-5.0); CALCIUM 9.1 mg/dL (8.8-10.2); CREATININE 1.4 mg/dL (0.7-1.2); POTASSIUM 4.4 mmol/L (3.5-5.1); TOTAL BILIRUBIN 0.7 mg/dL (0.20-1.00); TOTAL PROTEIN 6.4 g/dL (6.3-8.3)
[2018-08-27] MEDS: PULMICORT INH SCH ×2 (09:07→19:25)
[2018-08-27] MEDS: NEURONTIN PO SCH ×2 (09:35→22:48)
[2018-08-27] MEDS: CELLCEPT PO SCH ×2 (09:35→22:49)
[2018-08-27] MEDS: ADALAT CC PO SCH (09:35)
[2018-08-27] MEDS: LASIX PO SCH (09:35)
[2018-08-27] MEDS: PROGRAF PO SCH ×2 (09:35→23:24)
[2018-08-27] MEDS: ASPIRIN PO SCH (09:36)
[2018-08-27] MEDS: COREG PO SCH ×2 (09:36→22:49)
[2018-08-27] MEDS: PREDNISONE PO SCH (09:36)
--- NOTE | 2018-08-27 13:05 | GENERAL SURGERY PROGRESS NOTE ---
DATE: 08/27/2018 SUBJECTIVE: Doing well, no neurologic issues. He is tolerating p.o. OBJECTIVE: Vitals: No fever. No tachycardia. Neck: His wound is flat. Neurologic: Cranial nerves are intact. Strength is 5/5. Reviewed his laboratories and medications. We have him on an aspirin. ASSESSMENT/PLAN: This is a 68-year-old gentleman with right endarterectomy. We will continue current management. I have encouraged him to be out of bed and ambulating. cc: Antionette Foster MD
--- NOTE | 2018-08-27 15:19 | PROGRESS NOTE ---
DATE: 08/27/2018 SUBJECTIVE: Patient is resting in bed. Not in any obvious distress. OBJECTIVE: Vital Signs: Temperature 97.9 degrees, pulse 66, respirations [*], blood pressure 149/58, oxygen saturation 92%. HEENT: Atraumatic, normocephalic. Neck: Has a dressing on the right side of the neck. Cardiovascular System: S1, S2. Respiratory System: Has evidence of good air entry bilaterally. Abdomen: Soft, nontender. No masses felt. Extremities: No lower extremity edema. Central Nervous System: No obvious focal deficits noted. Laboratory Data: WBC is 5.5, hematocrit is 35.9, with a platelet count of 147,000. Sodium is [*], potassium 4.4, chloride is 105, bicarb is 24, BUN is 31, creatinine is 1.4. ASSESSMENT AND PLAN: 1. Status post right carotid endarterectomy with patch angioplasty. The patient seems to be doing well postoperatively. The patient is being followed by the surgical team. 2. Type 2 diabetes mellitus. Continue blood sugar monitor as well as sliding scale insulin. 3. Hyperlipidemia. Continue statin. 4. Pulmonary hypertension. Aware. 5. History of congestive heart failure, compensated. Monitor intakes and outputs, as well as daily weights. Diuretics as needed. 6. Hypertension. Continue current antihypertensive regimen. 7. Deep venous thrombosis prophylaxis. Sequential compression devices. 8. Gastrointestinal prophylaxis. Proton pump inhibitor. 9. History of renal transplant at [facility] in 2012. Continue antirejection medications, specifically mycophenolate as well as tacrolimus. cc: Ezekiel Yarbrough MD
[2018-08-27] MEDS: CRESTOR PO SCH (22:48)
[2018-08-27] MEDS: AVAPRO PO SCH (22:49)
[2018-08-27] MEDS: LANTUS INSULIN SUBQ SCH (22:50)
[2018-08-28] MEDS: DUONEB (A & A) INH SCH ×4 (03:40→15:28)
[2018-08-28] MEDS: ROCEPHIN 1 GM in NS 50 ML IV SCH (06:01)
[2018-08-28] MEDS: HUMULIN R SUBQ SCH ×2 (06:31→12:04)
[2018-08-28] MEDS ORDERED: PRILOSEC PO SCH (07:00)
[2018-08-28] MEDS: PULMICORT INH SCH (07:58)
[2018-08-28] MEDS: HUMALOG SUBQ SCH ×2 (08:52→11:58)
[2018-08-28] MEDS: PREDNISONE PO SCH (08:53)
[2018-08-28] MEDS: NEURONTIN PO SCH (08:53)
[2018-08-28] MEDS: CELLCEPT PO SCH (08:53)
[2018-08-28] MEDS: LASIX PO SCH (08:53)
[2018-08-28] MEDS: ADALAT CC PO SCH (08:53)
[2018-08-28] MEDS: ASPIRIN PO SCH ×2 (08:53→12:01)
[2018-08-28] MEDS: COREG PO SCH (08:53)
[2018-08-28] MEDS: PROGRAF PO SCH (12:08)
--- NOTE | 2018-08-28 12:08 | PROGRESS NOTE ---
DATE: 08/28/2018 SUBJECTIVE: The patient is resting comfortably in bed. Not in any obvious distress today. OBJECTIVE: Vital signs: As follows: Temperature 97.8 degrees, pulse 65, respirations 20, blood pressure is 150/67, oxygen saturation is 95%. HEENT: Atraumatic, normocephalic. Cardiovascular: S1, S2. Respiratory system: Has evidence of good air entry bilaterally. Abdomen: Soft, nontender. No masses felt. Extremities: No evidence of edema. Central nervous system: No obvious focal deficit noted. LABORATORY DATA: Blood sugar is 186. ASSESSMENT AND PLAN: 1. Status post right carotid endarterectomy as well as patch angioplasty. The patient seems to be doing well postop. Being followed by the Surgical Team. 2. Type 2 diabetes mellitus. Continue blood sugar monitoring as well as sliding scale insulin. 3. Hyperlipidemia, continue statin. 4. Pulmonary hypertension. Aware. 5. History of congestive heart failure. Compensated. Monitor intakes and outputs, as well as daily weights. Continue diuretics as needed. 6. Hypertension. Continue current antihypertensive regimen. 7. Deep vein thrombosis prophylaxis. Sequential compression devices. 8. Gastrointestinal prophylaxis. Proton pump inhibitor. 9. History of renal transplant. Continue antirejection medications, specifically mycophenolate as well as tacrolimus . 10. Disposition. The patient can be discharged home when considered appropriate by the Surgical Team. cc: Ezekiel Yarbrough MD
--- NOTE | 2018-08-28 12:21 | GENERAL SURGERY PROGRESS NOTE ---
DATE: 08/28/2018 SUBJECTIVE: Mr. Pineda is doing generally well. Neurologically, he is fine. OBJECTIVE: His trachea is midline. His wound is fine. It is okay with me if he goes home. He can be discharged home on antiplatelet medication, either aspirin 81 mg or Plavix 75 mg. Either one will be adequate for me. He is to return to see me in the office in a week. We discussed activity and wound care. cc: Jose Zamora MD
[2018-08-28 12:34] VITALS: BP 173/62
--- NOTE | 2018-08-28 14:33 | PROGRESS NOTE ---
DATE: 08/28/2018 SUBJECTIVE: Mr. Pineda had right carotid endarterectomy 3 days ago, and he has done very well from surgical standpoint. OBJECTIVE: On my exam now, he is awake, alert, attentive. Speech is not dysarthric. Language function is intact on brief testing. Memory is good. He has full visual good tested by confrontational finger counting. Extraocular movements are full. Facial motility is symmetric. Tongue is midline. Strength is normal in the arms. He did well on [id number] testing bilaterally. Tone is symmetric in the limbs. I did not test his gait. IMPRESSION: Stable neurologically, no definite deficit. I do not have any new suggestions. Thanks for asking Neurology to see Mr. Pineda. cc: Mark Conner III, MD
[2018-08-28] MEDS ORDERED: ZOFRAN PO PRN (16:13)
--- NOTE | 2018-08-28 17:40 | DISCHARGE SUMMARY ---
ADMISSION DATE: 08/24/2018 DISCHARGE DATE: 08/28/2018 PRINCIPAL DIAGNOSIS: Transient ischemic attack. SECONDARY DIAGNOSIS: 1. Right carotid artery stenosis. 2. Diabetes mellitus. 3. Pulmonary hypertension. 4. Acute kidney injury superimposed on chronic kidney disease. 5. History of renal transplant. 6. History of congestive heart failure. 7. Hypertension. 8. Coronary artery disease. DISCHARGE MEDICATIONS: Include the following 1. Zofran 4 mg every 4 hours p.r.n. 2. Coreg 12.5 g p.o. twice a day. 3. NovoLog 20 units subcutaneous 3 times a day. 4. Prednisone 5 mg p.o. daily. 5. Mycophenolate 50 mg p.o. twice a day. 6. Tacrolimus 0.5 g p.o. twice a day. 7. Lasix 40 mg p.o. daily. 8. Gabapentin 300 mg p.o. twice a day. 9. Nifedipine 30 mg p.o. daily. 10. Avapro 300 mg at bedtime. 11. [*] 12. Lantus 19 units subcutaneous at bedtime. 13. Aspirin 81 mg p.o. daily. 14. Plavix 75 mg a day. 15. Azithromycin 1 p.o. twice a day. CONSULTATIONS DONE DURING THIS HOSPITAL STAY: 1. Dr. Jose Zamora, Surgery. 2. Dr. Conner, Neurology. PROCEDURES DONE DURING THIS HOSPITAL STAY: 1. Head CT, 08/24/2018. 2. Right carotid endarterectomy with patch angioplasty, 08/25/2018. HOSPITAL COURSE: Mr. Pineda Pineda is a 68-year-old male who presented to the hospital because of stroke-like syndrome and noted to have evidence of right carotid artery stenosis. The patient was seen by Dr. Jose Zamora, and the patient subsequently had a right carotid endarterectomy done with patch angioplasty. Postoperatively, the patient seemed to have done fairly well. He is stable. He can now be discharged home. His discharge medications will need to be taken as directed and he will need to follow up with Dr. Zamora as an outpatient. cc: Ezekiel Yarbrough MD
== END 2018-08-28 16:24 | disposition home or self-care (01) | DRG 38 ==
LOC: ED 11:27 → 4N 15:27 → SUATTDRO 15:27 → ICU 08-25 16:02 → 3N 08-26 09:28
PROVIDERS: ATTEND Internal Medicine
CPT/HCPCS: 70450; 71010; 71045; 80048; 80053; 82550; 82948; 83036; 83735; 84443; 84484; 85025; 85610; 85730; 88304; 93005; 93010; 94640; 94761; 94799; 99285; A9270; C1763; J0330; J0456; J0690; J0696; J1644; J1720; J1815; J2370; J3010; J7030; J7040; J7506; J7512; J7517; XXXXX

== ENCOUNTER 2019-03-03 08:27 | Inpatient (IN) ==
[2019-03-03] MEDS ORDERED: LASIX IV ONE ×2 (08:53→10:29)
[2019-03-03] MEDS ORDERED: DUONEB (A & A) INH ONE (08:54)
[2019-03-03 09:13] LABS: ALLEN TEST YES; BE 0.1 mmoll (-3.0-3.0); BLOOD TYPE ARTERIAL; METHB 1.1 % (0.0-1.5); O2(CT) 17.8 mL/dL (15.0-23.0); O2HB 96.2 % (95.0-99.0); PCO2(98.6) 46 mmHg (35-45); PO2(98.6) 164 mmHg (60-100); SAMPLE BLOOD; SAO2 99.8 % (95.0-100.0); THB 12.9 g/dL (11.5-17.4); pH(98.6) 7.36 (7.35-7.45)
[2019-03-03 09:16] LABS: MODALITY CANNULA
--- NOTE | 2019-03-03 09:19 | Diag Imaging Result Doc PS360 ---
EXAM: CHEST-1 VIEW - 03/03/2019 HISTORY: possible pneumonia TECHNIQUE: Portable chest COMPARISON: 02/18/2019 FINDINGS: Heart size appears borderline enlarged. There is prominence of bilateral lower lung interstitial markings. There is no dense consolidation, substantial pleural effusion, or pneumothorax identified. IMPRESSION: Bilateral lower lung interstitial infiltrates, edema, or scarring. No dense consolidation. Electronically signed by Sebastián Sorto 03/03/2019 9:17 AM
--- NOTE | 2019-03-03 09:22 | PROVIDER DOCUMENTATION ---
HPI-Respiratory General - General Chief Complaint: SEPSIS ALERT - D Stated Complaint: SOB Time Seen by Provider: 03/03/19 08:38 Source: patient, family Allergies/Adverse Reactions: Patient Allergies Allergy/AdvReac Type Severity Reaction Status Date / Time No Known Allergies Allergy Verified 02/10/19 10:50 Home Medications: Home Medication List Medication Instructions Recorded Confirmed Last Taken Type Carvedilol 25 mg PO BID 07/19/12 03/03/19 02/10/19 History Insulin Aspart [Novolog] 20 unit SQ TID 12/13/14 03/03/19 1 Day Ago History ~02/09/19 Mycophenolate Mofetil [Cellcept] 250 mg PO BID 12/13/14 03/03/19 02/10/19 History Tacrolimus 0.5 mg PO BID 12/13/14 03/03/19 02/10/19 History Furosemide [Lasix] 40 mg PO DAILY 08/21/18 03/03/19 02/10/19 History Gabapentin 300 mg PO BID 08/21/18 03/03/19 02/10/19 History Nifedipine [Nifedipine ER] 90 mg PO Q12H 08/21/18 03/03/19 02/10/19 History Insulin Glargine [Basaglar] 90 unit SUBQ QHS 08/22/18 03/03/19 2 Days Ago History ~02/08/19 Rosuvastatin Calcium [Crestor] 10 mg PO QHS 08/22/18 03/03/19 1 Day Ago History ~02/09/19 Aspirin 81 mg PO DAILY #30 chewtab 08/23/18 03/03/19 02/10/19 Rx Prednisone 0.5 mg PO DAILY 02/10/19 03/03/19 02/10/19 History Azithromycin 1 tab PO DAILY 03/03/19 03/03/19 Unknown History Hydralazine HCl 1 tab PO TID 03/03/19 03/03/19 Unknown History - History of Present Illness-Resp Quality of Pain: reports: none Review of Systems - Adult - REVIEW OF SYSTEMS - ADULT Constitutional: reports: chills, fever Eyes: denies: no symptoms reported Ears, Nose, Mouth & Throat: denies: no symptoms reported Past History - Adult - PAST MEDICAL HISTORY-ADULT Review of Records: reports: Old Records Reviewed, Nursing Assessment Review, Medications Reviewed, Social history reviewed & non-contributory. Major Childhood Illnesses: reports: denies history Cardiovascular: reports: HTN, NE Respiratory: reports: denies history Gastrointestinal: reports: denies history Obstetrical/Gynecological: reports: denies history Genitourinary: reports: ESRD, other (kidney transplant) Neurological: reports: denies history Psychiatric: reports: denies history Endocrine/Immune: reports: Diabetes - PRIOR SURGERIES/PROCEDURES Surgical/Procedure History: reports: appendectomy, cardiac stent, other (kidney transplant) - IMMUNIZATION STATUS Childhood Immunizations: See Nurse Assessment Flu Vaccine: See Nurse Assessment - FAMILY HISTORY Family History: reviewed, not pertinent Physical Exam-General - PHYSICAL EXAM-ADULT Initial Vital Signs Reviewed: Yes - CONSTITUTIONAL General Appearance: alert, moderate distress - EYES Eyes: PERRL/EOMI - HEAD, EARS, NOSE, MOUTH & THROAT HENMT: normocephalic/atraumatic, moist mucous membranes, normal ENT inspection, pharynx normal - NECK Neck: supple - RESPIRATORY Respiratory: respiratory distress, decreased breath sounds, accessory muscle use , rhonchi, wheezing - CARDIOVASCULAR Cardiovascular: regular rate, rhythm, no JVD, tachycardia - GASTROINTESTINAL (ABDOMEN) Abdominal Exam: non tender, soft - MUSCULOSKELETAL Back Exam: no CVA tenderness, no vertebral tenderness Extremity: normal gait, pedal edema (3+ bilaterally) - SKIN Integumentary: warm/dry - NEUROLOGIC Neurologic: grossly normal - PSYCHIATRIC Psych/Mental Status: normal mood/affect, normal thought content, normal thought process, oriented x 3 - HEART Score HEART Score: History: Slightly Suspicious HEART Score: ECG: Non-Specific Repolarization Disturbance/LBBB/PM HEART Score: Age: > or = 65 Years HEART Score: Risk Factors for Atherosclerotic Disease: > or = 3 Risk Factors or History of Atherosclerotic Disease HEART Score: Troponin: < or = Normal Limit Total HEART Score:: 5 Progress - PLAN OF CARE/RESULTS Progress/Plan/Lab Results: Vital Signs - 8 hr 03/03/19 08:29 03/03/19 08:38 03/03/19 09:08 Temperature 98.1 F Pulse Rate 90 93 H 89 Respiratory Rate 22 34 H 22 Blood Pressure 164/75 179/87 O2 Sat by Pulse Oximetry 86 L 94 L 95 03/03/19 09:21 Temperature Pulse Rate 90 Respiratory Rate 29 H Blood Pressure 180/82 O2 Sat by Pulse Oximetry 93 L Laboratory Results - last 24 hr 03/03/19 03/03/19 03/03/19 08:40 08:40 08:40 WBC 14.11 H RBC 4.52 L Hgb 12.3 L Hct 40.2 L MCV 88.9 MCH 27.2 MCHC 30.6 L RDW Std Deviation 14.7 H Plt Count 183 MPV 11.6 H Immature Gran % (Auto) 0.4 Neut % (Auto) 88.0 H Lymph % (Auto) 3.3 L [place] % (Auto) 8.2 Eos % (Auto) 0.0 Baso % (Auto) 0.1 Immature Gran # (Auto) 0.05 H Neut # (Auto) 12.42 H Lymph # (Auto) 0.47 L [place] # (Auto) 1.16 H Eos # (Auto) 0.00 Baso # (Auto) 0.01 Segmented Neutrophils 87 H Lymphocytes 4 L Monocytes 9 Anisocytosis 1+ Macrocytosis 1+ PT 14.8 INR 1.14 PTT (Actin FS) 32.4 D-Dimer, Quantitative 0.96 H Specimen Type Sample Site pH pCO2 pO2 HCO3 Base Excess Oxyhemoglobin ABG O2 Sat (Calculated) ABG O2 Saturation ABG Carboxyhemoglobin ABG Methemoglobin Fede Test A-a O2 Difference Total Hemoglobin Lactate Liter Flow Blood Gas Modality FiO2 % Sodium 135 L Potassium 4.4 Chloride 95 L Carbon Dioxide 23 L Anion Gap 17 BUN 31 H Creatinine 1.6 H Estimated GFR/1.73 m2 43 BUN/Creatinine Ratio 19 Glucose 123 H Calculated Osmolality 278 Calcium 9.2 Total Bilirubin 0.76 AST 9 L ALT 11 Alkaline Phosphatase 68 Creatine Kinase 42 Troponin T [id number]-[id number] Pept Total Protein 6.6 Albumin 4.2 Globulin 2.4 Albumin/Globulin Ratio 1.8 Plasma Lactate 03/03/19 03/03/19 03/03/19 08:40 08:40 08:40 WBC RBC Hgb Hct MCV MCH MCHC RDW Std Deviation Plt Count MPV Immature Gran % (Auto) Neut % (Auto) Lymph % (Auto) [place] % (Auto) Eos % (Auto) Baso % (Auto) Immature Gran # (Auto) Neut # (Auto) Lymph # (Auto) [place] # (Auto) Eos # (Auto) Baso # (Auto) Segmented Neutrophils Lymphocytes Monocytes Anisocytosis Macrocytosis PT INR PTT (Actin FS) D-Dimer, Quantitative Specimen Type Sample Site pH pCO2 pO2 HCO3 Base Excess Oxyhemoglobin ABG O2 Sat (Calculated) ABG O2 Saturation ABG Carboxyhemoglobin ABG Methemoglobin Fede Test A-a O2 Difference Total Hemoglobin Lactate Liter Flow Blood Gas Modality FiO2 % Sodium Potassium Chloride Carbon Dioxide Anion Gap BUN Creatinine Estimated GFR/1.73 m2 BUN/Creatinine Ratio Glucose Calculated Osmolality Calcium Total Bilirubin AST ALT Alkaline Phosphatase Creatine Kinase Troponin T 0.020 Mcm-S-Vfdzicouwmm Pept 2878 H Total Protein Albumin Globulin Albumin/Globulin Ratio Plasma Lactate 1.5 03/03/19 09:10 WBC RBC Hgb Hct MCV MCH MCHC RDW Std Deviation Plt Count MPV Immature Gran % (Auto) Neut % (Auto) Lymph % (Auto) [place] % (Auto) Eos % (Auto) Baso % (Auto) Immature Gran # (Auto) Neut # (Auto) Lymph # (Auto) [place] # (Auto) Eos # (Auto) Baso # (Auto) Segmented Neutrophils Lymphocytes Monocytes Anisocytosis Macrocytosis PT INR PTT (Actin FS) D-Dimer, Quantitative Specimen Type ARTERIAL Sample Site R RADIAL pH 7.36 pCO2 46 H pO2 164 H HCO3 25.0 Base Excess 0.1 Oxyhemoglobin 96.2 ABG O2 Sat (Calculated) 17.8 ABG O2 Saturation 99.8 ABG Carboxyhemoglobin 2.50 ABG Methemoglobin 1.1 Fede Test YES A-a O2 Difference 64.0 Total Hemoglobin 12.9 Lactate 1.20 Liter Flow 5.0 Blood Gas Modality [place]A FiO2 % 40.0 Sodium Potassium Chloride Carbon Dioxide Anion Gap BUN Creatinine Estimated GFR/1.73 m2 BUN/Creatinine Ratio Glucose Calculated Osmolality Calcium Total Bilirubin AST ALT Alkaline Phosphatase Creatine Kinase Troponin T Qvi-Y-Rjiltsrwkvo Pept Total Protein Albumin Globulin Albumin/Globulin Ratio Plasma Lactate Orders Category Date Time Status Cardiac Monitoring DIRECTED Care 03/03/19 08:36 Active IV Insertion ORDERED Care 03/03/19 08:36 Completed Notify MD of + Sepsis Screen NOW Care 03/03/19 08:36 Active Notify Physician As Ordered Care 03/03/19 08:36 Active CHEST-1 VIEW [RAD] Stat Exams 03/03/19 08:36 Completed ABG [RESP] Routine Lab 03/03/19 09:10 Completed BLOOD CULTURE [BLDCUL] Stat Lab 03/03/19 09:05 Received CBC WITH DIFF [HEME] Stat Lab 03/03/19 08:40 Completed CK PROFILE [SP CHEM] Stat Lab 03/03/19 08:40 Completed COMPREHENSIVE METABOLIC PANEL [CHEM] Stat Lab 03/03/19 08:40 Completed D-DIMER [COAG] Stat Lab 03/03/19 08:40 Completed LACTATE, PLASMA [CHEM] Lab 03/03/19 11:45 Uncollected LACTATE, PLASMA [CHEM] Lab 03/03/19 14:45 Uncollected LACTATE, PLASMA [CHEM] Q3H Lab 03/03/19 08:40 Completed PROTIME WITH INR [COAG] Stat Lab 03/03/19 08:40 Completed PTT [COAG] Stat Lab 03/03/19 08:40 Completed TROPONIN T Stat Lab 03/03/19 08:40 Completed URINALYSIS W/POSS RFLX CULT [URINALYSIS] Stat Lab 03/03/19 08:36 Uncollected pro-bnp [PRO B-NATRIURETIC PEPTIDE] Stat Lab 03/03/19 08:40 Completed Albuterol 2.5MG/Ipratrop 0.5MG [Duoneb (A & A)] Med 03/03/19 08:54 Discontinued 3 ml INH NOW ONE Furosemide [Lasix] Med 03/03/19 08:53 Discontinued 40 mg IV NOW ONE Furosemide [Lasix] Med 03/03/19 10:29 Discontinued 40 mg IV NOW ONE Piperacillin/Tazobactam [Zosyn] 4.5 gm Med 03/03/19 09:42 Discontinued 0.9% Sodium Chloride Inj [Ns] 100 ml IV NOW Aerosol Treatments Routine Oth 03/03/19 08:54 Completed Aerosol Treatments Stat Oth 03/03/19 08:54 Completed Oxygen Device Stat Oth 03/03/19 08:36 Completed Result Diagrams: 03/03/19 08:40 03/03/19 08:40 - REASSESSMENT Reassessment #1 Time Reassessed: 10:00 Status: improving (Pt feeling better after lasix and Neb treatment.) - CONSULTS/PCP/HOSPITALIST Notification #1 *Consult/PCP/Hospitalist*: d/w Pawan for hospitalist Time Discussed: 10:25 Consult Disposition: Admit Departure - Departure Date of Disposition Decision: 03/03/19 Time of Disposition Decision: 10:53 DIAGNOSIS: CHF exacerbation, Bilateral pneumonia, Dyspnea Disposition: ADMITTED INPATIENT 09 Certified Medical Emergency: Emergent Condition: Stable Referrals and Follow-Ups: Kartik Crump MD [Primary Care Provider] - - Critical Care Note This patient required my direct & personal management of CC.: No Attestation - Physician/ AIDE Attestation Patient care was provided by Advanced Practice Provider:: No The physician spent face to face time with patient:: Yes Advanced Practice Provider documentation review:: Supervising physician onsite and consulted in the evaluation and care of this patient. The physician did have a face to face encounter with the patient.
[2019-03-03 09:24] LABS: BASO# 0.01 X1000 (0.0-0.2); BASO% 0.1 % (0.0-0.8); HEMATOCRIT 40.2 % (42.0-52.0); HEMOGLOBIN 12.3 g/dL (14.0-18.0); IMM GRAN# 0.05 X1000 (0.0-0.04); IMM GRAN% 0.4 % (0.0-0.5); LYMPH# 0.47 X1000 (1.2-3.4); LYMPH% 3.3 % (20.5-51.1); MCH 27.2 PG (27-31); MCHC 30.6 g/dL (33-37); MCV 88.9 FL (81-99); MONO# 1.16 X1000 (0.11-0.59); MONO% 8.2 % (1.7-9.3); MPV 11.6 FL (7.4-10.4); NEUT# 12.42 X1000 (1.4-6.5); PLT 183 X1000 (130-400); RBC 4.52 XMIL (4.7-6.1); RDW 14.7 % (11.5-14.5); WBC 14.11 X1000 (4.8-10.8)
[2019-03-03 09:27] LABS: INR 1.14; PROTIME 14.8 Seconds (11.0-16.0)
[2019-03-03 09:28] LABS: PTT 32.4 Seconds (22.3-41.8)
[2019-03-03 09:34] LABS: ALB/GLOB RATIO 1.8; ALBUMIN 4.2 g/dL (3.5-5.0); CALCIUM 9.2 mg/dL (8.8-10.2); CREATININE 1.6 mg/dL (0.7-1.2); POTASSIUM 4.4 mmol/L (3.5-5.1); TOTAL BILIRUBIN 0.76 mg/dL (0.20-1.00); TOTAL PROTEIN 6.6 g/dL (6.3-8.3)
[2019-03-03] MEDS ORDERED: ZOSYN 4.5 GM in NS 100 ML IV ONE (09:42)
[2019-03-03 09:47] LABS: LYMPHS 4 % (21-51); MONO 9 % (1-9); SEGS 87 % (42-75)
[2019-03-03 09:53] LABS: ANISOCYTOSIS 1+
--- NOTE | 2019-03-03 10:53 | ED EKG INTERP ---
This chart was entered by Alize Chase Scribe, acting as scribe for Thomas Bella MD. EKG Interpretation - EKG Time of EKG reading by physician:: 08:35 EKG Read and Signed by:: Thomas Bella EKG Interpretation (*Must complete 3 of following elements*): Abnormal Rate: 92 Rhythm: NSR [place]: normal QRS: LBB AR Interval: normal ST Wave: normal Prior EKG Comparison: unchanged from prior (02/10/19) Attestation - Physician/ AIDE Attestation Patient care was provided by Advanced Practice Provider:: No The physician spent face to face time with patient:: Yes Advanced Practice Provider documentation review:: Supervising physician onsite and consulted in the evaluation and care of this patient. The physician did have a face to face encounter with the patient. This chart was documented by the indicated scribe, (Alize Chase Scribe) and accurately reflects the services I performed and decisions made by me, Thomas Bella MD, as attested by the provider's signature.
[2019-03-03 11:03] LABS: URINE SOURCE CLEAN CATCH
[2019-03-03 11:10] LABS: BILIRUBIN URINE NEGATIVE (NEGATIVE); BLOOD URINE MODERATE (NEGATIVE); COLOR YELLOW; GLUCOSE URINE NEGATIVE (NEGATIVE); KETONE URINE NEGATIVE (NEGATIVE); LEUKOCYTES URINE LARGE (NEGATIVE); NITRITE URINE NEGATIVE (NEGATIVE); PH URINE 5.5; PROTEIN URINE 70 mg/dL (NEGATIVE); SP GRAVITY URINE 1.013; TURBIDITY URINE HAZY (CLEAR); UROBILINOGEN URINE NORMAL (NORMAL)
[2019-03-03 11:12] LABS: UR EPITHELIAL CELLS <10 /HPF (<10); URINE BACTERIA 1+ /HPF; URINE RBC <10 /HPF (<10); URINE WBC TNTC /HPF (<10)
[2019-03-03] MEDS ORDERED: VANCOMYCIN IV PER PHARMACY MISC SCH (12:00)
--- NOTE | 2019-03-03 14:50 | Diag Imaging Result Doc PS360 ---
EXAM: CT THORAX W/O CONTRAST - 03/03/2019 HISTORY: pneumonia TECHNIQUE: CT thorax without contrast. No contrast administered per request of the referring provider. COMPARISON: 03/03/2019 chest radiograph FINDINGS: There is borderline cardiomegaly. There are small bilateral pleural effusions. There are mild infiltrates and/or atelectasis at the bilateral posterior inferior lower lobes. The remainder lungs appear essentially clear. There is no pneumothorax identified. There are nonspecific small and a few mildly enlarged mediastinal lymph nodes. Included sections of the upper abdomen show an apparent 2.5 cm diverticulum arising at the posterior fundus of the stomach. There is no associated inflammation. IMPRESSION: Borderline cardiomegaly. Small bilateral pleural effusions. Mild infiltrates or atelectasis at bilateral lower lobes. Pneumonia cannot be excluded. This exam was performed using automated exposure control, adjustment of mA or kV according to patient size, and/or use of iterative reconstruction technique. Electronically signed by Sebastián Sorto 03/03/2019 2:47 PM
[2019-03-03] MEDS ORDERED: VANCOMYCIN 2,000 MG in NS 500 ML IV SCH (15:00)
[2019-03-03] MEDS: APRESOLINE PO SCH ×2 (15:25→21:25)
[2019-03-03] MEDS: ADALAT CC PO SCH ×2 (15:25→23:55)
[2019-03-03] MEDS: DUONEB (A & A) INH SCH ×3 (15:29→23:27)
[2019-03-03 15:51] LABS: ALBUMIN 3.7 g/dL (3.5-5.0); CALCIUM 8.8 mg/dL (8.8-10.2); CREATININE 1.8 mg/dL (0.7-1.2); PHOSPHORUS 3.8 mg/dL (2.7-4.5); POTASSIUM 4.6 mmol/L (3.5-5.1)
[2019-03-03] MEDS ORDERED: ZOSYN 3.375 GM in NS 50 ML IV SCH (16:00)
--- NOTE | 2019-03-03 16:10 | HISTORY AND PHYSICAL ---
CHIEF COMPLAINT: Shortness of breath. HISTORY OF PRESENT ILLNESS: This is a 68-year-old gentleman with a history of renal transplant in 2013, congestive heart failure, diabetes mellitus, hypertension, who presents to the emergency room complaining of shortness of breath that started about 12 hours prior to presentation. He has a history of having flu and pneumonia being evaluated. Mr. Pineda was evaluated in [facility] Emergency Room on February 10, he was diagnosed with acute respiratory failure with hypoxemia and acute kidney injury. Dr. Hickman at [facility] at that time recommended the patient be transferred there for further care as he is a renal transplant patient. The family states that he was discharged from [place] last week. He followed up with his primary care physician yesterday having a fever, increasing shortness of breath and cough and was given a prescription for Zithromax. On arrival to the emergency room today he was found to have a room air saturation of 87%. Chest x-ray reveals bilateral lower lung infiltrates and edema. Blood cultures were drawn. He was given vancomycin and Zosyn in the emergency room and he is being admitted for further evaluation and treatment. PAST MEDICAL HISTORY: 1. Renal transplant in 2012. 2. Hypertension. 3. Diabetes mellitus type 2. 4. Congestive heart failure. 5. Coronary artery disease status post coronary stent. 6. Right carotid artery stenosis. 7. Pulmonary hypertension. 8. Morbid obesity PAST SURGICAL HISTORY: 1. Renal transplant 2012. 2. Appendectomy. 3. Cardiac stents. SOCIAL HISTORY: He denies alcohol, tobacco, or illicit drug use. He is , lives with his . FAMILY HISTORY: Is positive for hypertension and diabetes in his parents. Negative for coronary artery disease, stroke or carotid disease. ALLERGIES: No known drug allergies. HOME MEDICATIONS: A list will be obtained by the nursing staff and once verified will review and restart as appropriate. REVIEW OF SYSTEMS: Discussed with patient with pertinent positives stated in the HPI. He denies any syncope, dizziness, any chest pain or palpitations, any night sweats, recent weight loss or weight gain, any nausea, vomiting, diarrhea, constipation, black or bloody vomitus or stools, hematuria, dysuria, frequency, urgency. PHYSICAL EXAMINATION: GENERAL: This is a 68-year-old gentleman who is sitting up on the stretcher in the emergency room in no distress. VITAL SIGNS: Blood pressure is 177/81 with a heart rate of 87, respirations are 22 to 24, O2 saturations are 91 to 94 percent on 4 L nasal cannula. HEENT: Head is normocephalic, atraumatic. Mucous membranes are moist. NECK: Supple with trachea midline. CARDIOVASCULAR: Regular rate and rhythm. S1 and S2 appreciated. He does have some rhonchi that do not completely clear to cough. He has expiratory wheezes noted throughout. Chest rises and falls symmetric respiration. GASTROINTESTINAL: Abdomen soft, nontender, nondistended with bowel sounds in all 4 quadrants. : No CVA or suprapubic tenderness. EXTREMITIES: No clubbing or cyanosis. 1+ edema bilaterally. NEUROLOGIC: Alert, oriented x3. No focal neurologic deficits. SKIN: Warm and dry. LABS: WBC is 14.1 with hemoglobin 12.3, hematocrit 40.2 and platelets of 183,000. Sodium is 135, potassium 4.4, BUN 31, creatinine 1.6 with a glucose of 88. Troponin is 0.020. ABGs, pH 7.36 with a pCO2 of 46, PO2 of 164 with a bicarb of 25 is on 40% O2. Urinalysis reveals too numerous to count white blood cells with large leukocytes, moderate blood. Urine culture is pending. Blood cultures are pending. Chest x-ray reveals bilateral lower lung interstitial infiltrates, edema or scarring. ASSESSMENT AND PLAN: 1. Acute hypoxemic respiratory failure. Likely secondary to pneumonia. Will treat the underlying infection. 2. Bilateral lobe pneumonia. Blood and sputum cultures have been ordered. Will start renal dosed broad spectrum antibiotic therapy and start supplemental oxygen. Will check immunoglobulin levels. 3. Acute kidney injury on chronic kidney disease. The patient received lasix in the ED. Will check urine studies and imaging. Nephrology has been consulted. 4. Diabetes mellitus type 2. Will monitor the blood glucose before meals and start sliding scale insulin. 5. S/p Renal transplant in 2012. Will restart the immunosuppressive medications. 6. Pulmonary hypertension. Aware. 7. Chronic diastolic congestive heart failure. Aware. 8. Hypertension. Restart home regimen. 9. Coronary artery disease. Aware. 10. Morbid obesity. The patient has been counseled about weight loss. 11. DVT prophylaxis. Will start heparin. Plan was discussed with Dr Stewart Further treatments pending hospital course. Dictated by ISAAK Flores for Fay Stewart MD cc: ISAAK Flores MD I performed a face to face encounter on the patient. I reviewed all labs and imaging on the patient. I agree with the H&P as dictated. MTDD
[2019-03-03 16:24] LABS: UR CREAT RANDOM 100.3 mg/dL (14-26); UR PROT RANDOM 53.6 mg/dL
[2019-03-03] MEDS: HUMALOG SUBQ SCH ×2 (16:35→21:51)
--- NOTE | 2019-03-03 17:14 | Diag Imaging Result Doc PS360 ---
EXAM: KUB ABDOMEN - 03/03/2019 HISTORY: abdominal distention TECHNIQUE: Portable AP spine abdomen COMPARISON: None. FINDINGS: The upper abdomen is not entirely included on the exam. The right colon is distended with air and fecal debris. There is gas visible in nondistended colon elsewhere. There is gas visible in mostly nondistended small bowel. IMPRESSION: Large amount retained of fecal debris in the colon suggesting constipation. Nonspecific bowel gas pattern otherwise. Electronically signed by Sebastián Sorto 03/03/2019 5:12 PM
--- NOTE | 2019-03-03 19:17 | PULMONOLOGY CONSULTATION ---
DATE: 03/03/2019 REASON FOR CONSULTATION: Respiratory failure and pneumonia in a transplant patient. HISTORY OF PRESENT ILLNESS: Mr. Pineda is a 68-year-old male with prior tobacco history (nonsmoker for 19 years), history of coronary artery disease, history of diabetes mellitus, status post kidney transplant, who presents to the hospital with shortness of breath. The patient was last evaluated in this hospital in January when he presented to the ER with fevers and shortness of breath and a productive cough after being diagnosed with influenza. The patient had evidence of acute renal insufficiency with a bump in his creatinine to 3.6. He was transferred to [facility] where his transplant was performed. The patient reports he was discharged home and had a followup chest x-ray 02/26/2019 (4 days ago) which his chest x-ray was clear. He does have some flattening of the diaphragms and COPD is suspected. The patient presented emergency room today following an episode of dry heaves with increased shortness of breath, increased cough and dropping oxygen saturations. Chest x-ray was performed which revealed new bibasilar infiltrates not seen [address] scan of the thorax was performed which revealed bibasilar infiltrates, small effusions, coronary artery disease. PAST MEDICAL HISTORY: 1. End-stage renal disease status post renal transplantation. 2. Diabetes mellitus. 3. Coronary artery disease status post stent placement. 4. Peripheral vascular disease. 5. Mild pulmonary hypertension. 6. Hypertension. 7. Status post appendectomy. 8. History of lacunar infarct of the right thalamus. 9. History of heart failure with normal ejection fraction. 10. Peripheral neuropathy. 11. Dyslipidemia. SOCIAL HISTORY: Patient denies alcohol use. He stopped smoking around 1999. FAMILY HISTORY: Noncontributory to current presentation. PHYSICAL EXAMINATION: General: Reveals an obese male with a BMI of 36.8. He has mild work of breathing. OBJECTIVE: Vital Signs: The patient has been afebrile during this hospitalization. Blood pressure 162/74, heart rate 99, respiratory rate 17, oxygen saturation 94% on 4 L per nasal cannula. HEENT: Pupils are equal and reactive. Oropharynx appears clear. Neck: Supple. Chest: Reveals prolonged expiratory phase with faint wheezing. There is crackles in both lung bases. Cardiac: S1, S2. Abdomen: Obese and soft. No increased tympany. No rebound tenderness. Extremities: Reveal evidence of peripheral vascular disease. LABORATORY DATA: CT scan as per HPI. White blood count 14.1, hemoglobin 12.3, platelet count 183,000. Arterial blood gas, pH 7.36, pCO2 of 46, pO2 of 164 on 40% FiO2. Sodium 130, potassium 4.6, chloride 92, bicarbonate 21, BUN 32, creatinine 1.8. IMPRESSION: 68-year-old with normal chest x-ray 4 days ago who now has aspiration pneumonia, acute hypoxemic respiratory failure, leukocytosis, nausea and vomiting with a benign abdominal exam. RECOMMENDATIONS: 1. Continue current antibiotics. The patient also has a urinary tract infection, which I failed to mention above. 2. Continue oxygen for hypoxemic respiratory failure. 3. Continue bronchodilators. 4. Obtain abdominal film to look for gross abdominal pathology. 5. Continue current antibiotics. Current presentation more consistent with an aspiration pneumonia than an atypical pneumonia. cc: Theron Bowman MD
[2019-03-03] MEDS ORDERED: NEURONTIN PO SCH (21:00)
--- NOTE | 2019-03-03 21:16 | Diag Imaging Result Doc PS360 ---
EXAM: CT ABDOMEN/PELVIS W/O CONTRAST - 03/03/2019 HISTORY: abdominal pain TECHNIQUE: CT abdomen/pelvis without contrast. No contrast administered per request of the referring provider. COMPARISON: 05/27/2010 FINDINGS: There are small bilateral pleural effusions with adjacent dependent/compressive atelectasis. There are no substantial abnormalities of the liver, spleen, adrenal glands, or pancreas identified. There are no calcified gallstones or pericholecystic inflammation identified. The bilateral [place] kidneys are atrophic. There is no [place] renal stone or hydronephrosis. There is a transplant kidney at the right lower quadrant/upper pelvis. There is mild fullness of the transplant renal collecting system. There is no transplant renal stone identified. There are no substantially enlarged lymph nodes identified. There are fairly extensive atherosclerotic calcifications noted. There is no evidence of bowel obstruction. There is an apparent 2.7 cm uncomplicated diverticulum arising at the posterior fundus of the stomach similar to prior. There is mild colonic diverticulosis. There is no evidence of diverticulitis. There is a moderate amount retained fecal debris in the colon. There is no free air, free fluid, or abscess identified. IMPRESSION: Small bilateral pleural effusions with adjacent atelectasis. Atrophic changes of the [place] kidneys. Transplant kidney right lower quadrant/upper pelvis. Mild distention of the transplant renal collecting system, no etiology for which is apparent. It is possible that this may be long-standing. There is no renal stone identified. No bowel obstruction. Mild uncomplicated colonic diverticulosis. Evidence of constipation. No abscess. No free air. No free fluid. This exam was performed using automated exposure control, adjustment of mA or kV according to patient size, and/or use of iterative reconstruction technique. Electronically signed by Sebastián Sorto 03/03/2019 9:13 PM
[2019-03-03] MEDS: ZOSYN 2.25 GM in NS 50 ML IV SCH (21:23)
[2019-03-03] MEDS: CELLCEPT PO SCH (21:24)
[2019-03-03] MEDS: COLACE PO SCH (21:24)
[2019-03-03] MEDS: COREG PO SCH (21:25)
[2019-03-03] MEDS: HEPARIN SUBQ SCH (21:25)
[2019-03-03] MEDS: DULCOLAX PR SCH (21:25)
[2019-03-03] MEDS: PROGRAF PO SCH (21:25)
[2019-03-04] MEDS: ZOSYN 2.25 GM in NS 50 ML IV SCH ×2 (04:19→12:19)
[2019-03-04] MEDS: APRESOLINE PO SCH ×3 (04:20→20:48)
[2019-03-04] MEDS: HUMALOG SUBQ SCH ×5 (06:30→20:49)
[2019-03-04 06:48] LABS: ALBUMIN 3.4 g/dL (3.5-5.0); CREATININE 1.9 mg/dL (0.7-1.2); PHOSPHORUS 4.3 mg/dL (2.7-4.5); POTASSIUM 4.2 mmol/L (3.5-5.1)
[2019-03-04 06:51] LABS: BASO# 0.01 X1000 (0.0-0.2); BASO% 0.1 % (0.0-0.8); EOS# 0.14 X1000 (0.0-0.7); EOS% 1.2 % (0.0-10.0); HEMATOCRIT 34.6 % (42.0-52.0); IMM GRAN# 0.06 X1000 (0.0-0.04); IMM GRAN% 0.5 % (0.0-0.5); LYMPH# 0.42 X1000 (1.2-3.4); LYMPH% 3.5 % (20.5-51.1); MCH 28.5 PG (27-31); MCHC 31.8 g/dL (33-37); MCV 89.6 FL (81-99); MONO# 1.29 X1000 (0.11-0.59); MONO% 10.7 % (1.7-9.3); NEUT# 10.19 X1000 (1.4-6.5); PLT 181 X1000 (130-400); RBC 3.86 XMIL (4.7-6.1); RDW 14.9 % (11.5-14.5); WBC 12.11 X1000 (4.8-10.8)
[2019-03-04] MEDS: DUONEB (A & A) INH SCH ×5 (07:45→23:15)
[2019-03-04] MEDS ORDERED: NS 1,000 ML IV SCH ×2 (08:00→18:15)
[2019-03-04] MEDS: PROGRAF PO SCH ×2 (09:01→20:48)
[2019-03-04] MEDS: COREG PO SCH ×2 (09:01→20:48)
[2019-03-04] MEDS: CELLCEPT PO SCH ×2 (09:01→20:48)
[2019-03-04] MEDS: PREDNISONE PO SCH (09:01)
[2019-03-04] MEDS: HEPARIN SUBQ SCH ×2 (09:02→20:48)
[2019-03-04] MEDS: COLACE PO SCH ×4 (09:02→20:54)
[2019-03-04] MEDS: ASPIRIN PO SCH (09:02)
--- NOTE | 2019-03-04 09:29 | EKG Report ---
Test Performed on : 03/04/2019 07:22:45 AM Test Reason : dyspnea Blood Pressure : / mmHG Vent. Rate : 086 BPM Atrial Rate : 086 BPM P-R Int : 178 ms QRS Dur : 162 ms QT Int : 436 ms P-R-T Axes : 020 -11 116 degrees QTc Int : 521 ms Sinus rhythm. with occasional premature ventricular complexes. Left bundle branch block Abnormal ECG When compared with ECG of 03-MAR-2019 08:35, (Unconfirmed) premature ventricular complexes. are now present Unconfirmed Result
[2019-03-04] MEDS: ZOFRAN IV PRN ×2 (09:44→15:17)
[2019-03-04] MEDS: ADALAT CC PO SCH (12:20)
[2019-03-04] MEDS: MAXIPIME 2 GM in NS 100 ML IV SCH (16:09)
--- NOTE | 2019-03-04 16:24 | INFECTIOUS DISEASE CONSULT REP ---
DATE: 03/04/2019 CONCLUSION: The patient has a possible bibasilar pneumonia. He also has a gram-negative josef urinary tract infection. RECOMMENDATIONS: I have discontinued Zosyn and vancomycin and instead I placed the patient on a combination of Zyvox p.o. and IV cefepime. Dr. Stewart has already ordered a procalcitonin level with which I agree. Also she has ordered immunoglobulin levels, which I also agree with. I am going to consult Urology to see what the doctor's feeling is about distention of the transplant collecting system as seen on CT scan. DISCUSSION: The patient tells me that about 2 or 3 days ago he became dyspneic, had a cough and fever. He has not been able to produce any sputum. He is anorectic since he has been sick. His CBC shows a white count of 12,110, hemoglobin of 11 and platelet count of 181,000. Creatinine is 1.9. GFR is 35. Liver function studies normal. Urinalysis showed white cells and bacteria. Urine culture is growing a gram-negative josef. Sputum culture on this patient showed on Gram stain 4+ epithelial cells. That means that the patient's sputum is really just saliva and should not be cultured and should not be treated for the results of the sputum. Blood cultures are pending. CT scan of the chest shows bibasilar pneumonia versus atelectasis. CT scan of the renal transplant showed mild fullness of the transplant collecting system. REVIEW OF SYSTEMS: Eyes And ears: The patient can hear and see okay . Neck: No stiffness. Respiratory: See present illness. Cardiac: No chest pain or palpitations. GI: No nausea, vomiting, or diarrhea. : See present illness. Neurologic: No seizures. No loss of motor or sensory function. Integument: No rash. PREVIOUS HOSPITALIZATIONS AND OPERATIONS: Has had a renal transplant surgery, an appendectomy and a carotid artery surgery. The patient has also had a stent placed in coronary artery. MEDICAL DISEASES: Positive for end-stage renal disease. The patient has a kidney transplant. He is obese. He has diabetes mellitus, hypertension and a transient ischemic attack. Patient had pneumonia as a child. He has had urinary tract infection in the past as well as pneumonia and influenza, hyperlipidemia. FAMILY HISTORY: Positive for diabetes mellitus, hypertension and cancer. SOCIAL HISTORY: The patient [place], does not have any pets. He stopped smoking cigarettes and alcohol years ago. ALLERGIES: His chart lists no known drug allergies. HOME MEDICATIONS: Include azithromycin, carvedilol, Lasix, gabapentin, hydralazine, insulin, CellCept, nifedipine, prednisone, Crestor and tacrolimus. PHYSICAL EXAMINATION: Temperature is 98.9 degrees, pulse 78, respirations 17, blood pressure 147/64, patient is 6 feet tall, weighs 273 pounds.General: This is an obese and ill-appearing elderly male. He is in no acute distress however. Head/eyes/ears/nose/throat: He can hear my spoken words and see near objects. He does not have any white coating on his tongue. Neck: No meningismus. Lungs: Clear to auscultation. Cardiovascular: Regular heart rate. Abdomen: Soft and nontender. Neurologic: The patient is awake. He can move his extremities. There is no tremor. Integument: No rash. Thank you for the consult. cc: David Chaidez MD [facility]
[2019-03-04 17:50] LABS: ALLEN TEST YES; BE -2.4 mmoll (-3.0-3.0); BLOOD TYPE ARTERIAL; O2(CT) 16.5 mL/dL (15.0-23.0); O2HB 95.5 % (95.0-99.0); PCO2(98.6) 45 mmHg (35-45); PO2(98.6) 94 mmHg (60-100); SAMPLE BLOOD; SAO2 98.9 % (95.0-100.0); THB 12.2 g/dL (11.5-17.4); pH(98.6) 7.33 (7.35-7.45)
[2019-03-04 17:51] LABS: MODALITY NRB
--- NOTE | 2019-03-04 18:05 | Diag Imaging Result Doc PS360 ---
EXAM: CHEST-1 VIEW HISTORY: dyspnea TECHNIQUE: Chest single view COMPARISON: 03/03/2019 FINDINGS: Poor inspiratory effort. The heart is enlarged. There is pulmonary edema. Questionable tiny right effusion. IMPRESSION: Cardiomegaly with pulmonary edema. Electronically signed by Kenny Santana 03/04/2019 6:02 PM
--- NOTE | 2019-03-04 18:12 | PROGRESS NOTE ---
DATE: 03/04/2019 SUBJECTIVE: The patient states that he feels a little bit better today. He still complains of shortness of breath and abdominal distention. He reports that he had a bowel movement this morning. OBJECTIVE: Vital Signs: Temperature 98.3 degrees, blood pressure 134/61, heart rate 84, respirations 18, O2 saturation is 91% on 4 L nasal cannula. Intake 780, output 1.1 L. General: This is a morbidly obese male lying in bed in no acute distress. Heart: S1, S2 normal. Regular rate and rhythm. Lungs: Bilateral expiratory wheezes with crackles bilaterally. Abdomen: Positive bowel sounds. Soft, distended. Extremities: 1+ peripheral edema noted. Neurologic: The patient is alert and oriented x4. LABS: White blood cell count 12, hemoglobin 11, hematocrit 34, platelets 181,000. Sodium 131, potassium 4.2, chloride 93, CO2 19, BUN 38, creatinine 1.9, glucose 167, phosphorus 4.3, calcium 9, albumin 3.4. X-RAYS: CT of the abdomen and pelvis shows a 2.7 cm uncomplicated diverticulum arising from the posterior fundus of the stomach. Atrophic changes of the kidneys. Mild distention of the transplant renal collecting system. ASSESSMENT AND PLAN: 1. Acute hypoxemic respiratory failure. Continue to treat the underlying pneumonia. Continue with supplemental oxygen and bronchodilator therapy. 2. Bilateral lobe pneumonia. Continue with antibiotics, oxygen and bronchodilator therapy. Pulmonary and Infectious Disease are following. 3. Urinary tract infection. The urine culture is growing gram-negative rods. The patient's antibiotics have been adjusted by Dr. Chaidez. 4. Acute kidney injury on chronic kidney disease. The BUN and Cr are rising. Fluids were started but the patient developed worsening respiratory distress. Nephrology has been consulted. 5. History of renal transplant in 2012. The CT done yesterday shows distention of the transplant renal collecting system. Dr. Chaidez has consulted with the urologist for further recommendations. Continue immunosuppressive medications. 6. Morbid obesity. Aware. 7. Pulmonary hypertension. Aware. 8. Constipation. The patient is on scheduled laxative therapy. 9. Hypertension. Continue on the current antihypertensive regimen. 10. Diabetes mellitus type 2. We will continue with sliding scale insulin. 11. Deep vein thrombosis prophylaxis. Continue on heparin. cc: MD KARLIE Samuel
[2019-03-04 18:28] LABS: ALBUMIN 3.6 g/dL (3.5-5.0); CALCIUM 9.1 mg/dL (8.8-10.2); CREATININE 2.3 mg/dL (0.7-1.2); PHOSPHORUS 4.4 mg/dL (2.7-4.5); POTASSIUM 4.2 mmol/L (3.5-5.1)
[2019-03-04] MEDS: ATIVAN IV PRN ×2 (18:28→23:04)
[2019-03-04] MEDS: ZYVOX PO SCH ×2 (19:12→20:48)
[2019-03-04 19:24] LABS: URINE SOURCE CATH
[2019-03-04] MEDS: MUCOMYST 20% INH SCH (19:29)
[2019-03-04 19:30] LABS: BILIRUBIN URINE NEGATIVE (NEGATIVE); BLOOD URINE TRACE (NEGATIVE); COLOR YELLOW; GLUCOSE URINE NEGATIVE (NEGATIVE); KETONE URINE NEGATIVE (NEGATIVE); LEUKOCYTES URINE SMALL (NEGATIVE); NITRITE URINE NEGATIVE (NEGATIVE); PROTEIN URINE TRACE mg/dL (NEGATIVE); SP GRAVITY URINE 1.015; TURBIDITY URINE HAZY (CLEAR); UROBILINOGEN URINE NORMAL (NORMAL)
[2019-03-04 19:32] LABS: UR EPITHELIAL CELLS >10 /HPF (<10); URINE BACTERIA NEGATIVE /HPF; URINE RBC <10 /HPF (<10); URINE WBC <10 /HPF (<10)
[2019-03-04] MEDS: DULCOLAX PR SCH ×2 (20:53→21:40)
--- NOTE | 2019-03-04 22:21 | PULMONOLOGY PROGRESS NOTE ---
DATE: 03/04/2019 SUBJECTIVE: The patient reports he feels a little bit better this morning. He has a relatively dry cough. OBJECTIVE: Vital Signs: Maximum temperature in the last 24 hours 100.1 degrees. Blood pressure 134/61, heart rate 84, respiratory rate 18, oxygen saturation 91% on 4 L per nasal cannula. HEENT: Pupils are equal and reactive. Oropharynx appears clear. Neck: Supple. Chest: Reveals coarse rhonchi. Cardiac: Regular rate. Normal S1, S2. Abdomen: Soft and obese. Extremities: Reveal trace edema. LABORATORIES: Microbiology is growing a gram-negative josef in his urine. Sodium 131, potassium 4.2, chloride 93, bicarbonate 19, BUN 38, creatinine 1.9. White blood count 12.11, hemoglobin 11.0, platelet 181,000. IMPRESSION: 68-year-old with 1. Aspiration pneumonia. 2. Acute hypoxemic respiratory failure. 3. Gram-negative urinary tract infection. 4. Constipation. PLAN: 1. Recommend reflux precautions. 2. Consider swallowing study if he continues to have issues with pneumonia. 3. Antibiotics per Infectious Disease. 4. Continue oxygen for hypoxic respiratory failure. 5. Guarded prognosis given recurrent admissions to the hospital. cc: Theron Bowman MD
[2019-03-05] MEDS ORDERED: LASIX IV ONE (00:12)
[2019-03-05] MEDS: ADALAT CC PO SCH ×3 (00:50→23:00)
[2019-03-05 01:12] LABS: ALLEN TEST YES; BE -2.6 mmoll (-3.0-3.0); BLOOD TYPE ARTERIAL; HCO3-(ACT) 22.9 mmoll (20.0-26.0); METHB 0.6 % (0.0-1.5); O2HB 97.5 % (95.0-99.0); PCO2(98.6) 49 mmHg (35-45); PO2(98.6) 145 mmHg (60-100); SAMPLE BLOOD; SAO2 100.2 % (95.0-100.0); THB 10.7 g/dL (11.5-17.4)
[2019-03-05 01:15] LABS: MODALITY NRB
[2019-03-05] MEDS: MAXIPIME 2 GM in NS 100 ML IV SCH (04:04)
[2019-03-05] MEDS: APRESOLINE PO SCH ×3 (04:11→20:14)
[2019-03-05 04:45] LABS: ALLEN TEST YES; BLOOD TYPE ARTERIAL; HCO3-(ACT) 21.8 mmoll (20.0-26.0); METHB 1.1 % (0.0-1.5); O2(CT) 14.6 mL/dL (15.0-23.0); O2HB 96.5 % (95.0-99.0); PCO2(98.6) 44 mmHg (35-45); PO2(98.6) 112 mmHg (60-100); SAMPLE BLOOD; SAO2 99.4 % (95.0-100.0); THB 10.6 g/dL (11.5-17.4); pH(98.6) 7.31 (7.35-7.45)
[2019-03-05 04:46] LABS: MODALITY BI PAP
[2019-03-05 04:47] LABS: BASO# 0.01 X1000 (0.0-0.2); BASO% 0.1 % (0.0-0.8); EOS# 0.02 X1000 (0.0-0.7); EOS% 0.3 % (0.0-10.0); HEMATOCRIT 32.9 % (42.0-52.0); HEMOGLOBIN 10.2 g/dL (14.0-18.0); IMM GRAN# 0.02 X1000 (0.0-0.04); IMM GRAN% 0.3 % (0.0-0.5); LYMPH# 0.31 X1000 (1.2-3.4); LYMPH% 4.3 % (20.5-51.1); MCH 27.3 PG (27-31); MCV 88.2 FL (81-99); MONO% 12.5 % (1.7-9.3); MPV 11.1 FL (7.4-10.4); NEUT# 5.96 X1000 (1.4-6.5); NEUT% 82.5 % (42.2-75.2); PLT 156 X1000 (130-400); RBC 3.73 XMIL (4.7-6.1); RDW 14.3 % (11.5-14.5); WBC 7.22 X1000 (4.8-10.8)
[2019-03-05 05:27] LABS: ALBUMIN 3.4 g/dL (3.5-5.0); CALCIUM 8.8 mg/dL (8.8-10.2); CREATININE 2.4 mg/dL (0.7-1.2); PHOSPHORUS 5.3 mg/dL (2.7-4.5); POTASSIUM 4.6 mmol/L (3.5-5.1)
--- NOTE | 2019-03-05 05:49 | Diag Imaging Result Doc PS360 ---
EXAM: CHEST-PORTABLE HISTORY: Resp. Distress TECHNIQUE: Single view COMPARISON: 11/01/2018 FINDINGS: Poor inspiratory effort. The heart is enlarged. There is pulmonary edema. There are small pleural effusions with basilar atelectasis. There appears to be underlying pneumonia as well. IMPRESSION: Interval worsening Electronically signed by Kenny Santana 03/05/2019 5:47 AM
[2019-03-05] MEDS: HUMALOG SUBQ SCH ×2 (06:16→11:19)
--- NOTE | 2019-03-05 07:44 | EKG Report ---
Test Performed on : 03/03/2019 08:35:53 AM Test Reason : dyspnea Blood Pressure : / mmHG Vent. Rate : 092 BPM Atrial Rate : 092 BPM P-R Int : 144 ms QRS Dur : 158 ms QT Int : 398 ms P-R-T Axes : 000 -06 113 degrees QTc Int : 492 ms Normal sinus rhythm. Left bundle branch block Abnormal ECG When compared with ECG of 10-FEB-2019 10:09, (Unconfirmed) T wave inversion no longer evident in Inferior leads Unconfirmed Result
[2019-03-05] MEDS: DUONEB (A & A) INH SCH ×5 (07:52→23:17)
[2019-03-05] MEDS: HEPARIN SUBQ SCH ×2 (08:44→20:14)
[2019-03-05] MEDS: CELLCEPT PO SCH ×2 (08:44→20:14)
[2019-03-05] MEDS: COLACE PO SCH ×2 (08:45→20:14)
[2019-03-05] MEDS: PROGRAF PO SCH ×2 (08:45→20:14)
[2019-03-05] MEDS: ASPIRIN PO SCH (08:45)
[2019-03-05] MEDS: PREDNISONE PO SCH (08:45)
[2019-03-05] MEDS: ZYVOX PO SCH ×2 (08:45→20:14)
[2019-03-05] MEDS: COREG PO SCH ×2 (08:45→20:14)
[2019-03-05] MEDS: MUCOMYST 20% INH SCH ×2 (11:08→19:34)
--- NOTE | 2019-03-05 13:03 | NEPHROLOGY CONSULTATION ---
DATE: 03/05/2019 Chief complaint: I couldnt breathe. HPI: Mr. Pineda is a 68-year-old male with a past medical history of chronic kidney disease 3B renal transplant 2012, congestive heart failure, diabetes mellitus type two, hypertension, and recent flu and pneumonia. His troubles started back in December with a UTI that was treated with bactrim that resulted in a high potassium and creatinine level. He was sent to [place] to his transplant team to evaluate his care. He spent five days in the hospital and then returned home to [place]. A few days later he developed shortness of breath and fever and presented to [facility] emergency Department. He was admitted for acute respiratory failure with hypoxia and acute kidney injury. He was transferred to [place] with a diagnosis of flu and pneumonia and spent 10 days in the hospital. When he discharged home last week he voiced shortness of breath on exertion and weakness but overall in good health. He returns to our ED on Tuesday with increasing shortness of breath with fever and chills and an O2 sat of 87% on room air. His chest x-ray showed bilateral lower lung infiltrate and Edema. He was given vancomycin in the ED and was admitted for evaluation. His blood cultures are still pending but his urine culture has grown out gram- negative rods. Sputum culture has Gram stain 4+ epithelial cells. Infectious disease changed his antibiotics to Renal dosed Zyvox PO and IV cefepime. The patient voices increased shortness of breath later that day that has required him to alternate between using a BiPAP and 100% nonrebreather with worsening chest X-rays. He has a baseline creatinine of 1.4 to 1.8 over the last five years. He presented with the 1.8 creatinine is now up to 2.4. Past medical history: chronic kidney disease 3B status post renal transplant, diabetes mellitus type two, coronary artery disease status post stent placement, peripheral vascular disease, mild pulmonary hypertension, Peripheral neuropathy, and dyslipidemia. Past surgical history: renal transplant in 2012, appendectomy, fistula placement to right wrist. Social history: patient lives with at home. He denies any alcohol, tobacco, or illicit drug use. Family history: noncontributory. Allergies: none How medications: aspirin,azithromycin, carvedilol, Lasix, gabapentin, hydralazine, novalog, basaglar, CellCept, nifedipine, prednisone, Crestor, tacrolimus. Review of systems: neurological: denies any altered mental status or confusion. Eyes: denies blurriness, dryness, or change in visual acuity. ENT: denies tinnitus or change in hearing. Integumentary: denies color change, rash or itch. Respiratory: admits to shortness of breath and orthopnea. Admits to productive cough with clear sputum. Cardiovascular: denies palpitations or chest pain. GI: admits to constipation and feelings of fullness, decreased appetite, but no nausea or vomiting. Admits to abdominal distention. : denies any color change amount or odor in urine. Endocrine: denies excessive thirst or hunger. Musculoskeletal: denies any new extremity pain or weakness. Labs: WBC 7.22, hemoglobin 10.2, hematocrit 32.9, platelet count 156, sodium 130, potassium 4.6, chloride 92, carbon dioxide 21, anion gap 17, BUN 54, creatinine 2.4, calcium 8.8, phosphorus 5.3, Albumin 3.4. ABG: PH 7.31, PC02 44, P02 112, HCO3 21.8, base excess -4.0 L. Urine random creatinine 100.3, urine random total protein 53.6, urine random sodium 32, urine random urea nitrogen 299. Imaging: chest x-ray shows port inspiratory effort with cardiomegaly, pulmonary Edema, small pleural effusions with basilar atelectasis. Abdomen pelvis CT without contrast impression of small bilateral pleural effusions with the adjacent atelectasis, atrophic changes of the [place] kidneys with transplant kidney right lower quadrant having mild distention of the transplant renal collecting system. Abdominal X-ray shows large amount retained of fecal debris in the colon suggesting constipation. Physical Exam: Vitals. Temperature 97.7, pulse 82, respirations 20, blood pressure 151/71, 02 sat 94% on nonrebreather General: Obese male lying in bed in some acute distress HEENT: Normocephalic, atraumatic. Trachea midline. Pupils equal and reactive to light. Skin: warm, dry and intact. Neck: Supple, 8 cm JVD. Cardiovascular: Distant heart tones. S1, S2. no murmurs or gallops. Respiratory: scattered rhonchi throughout anteriorly. Labored breathing. Abdomen: soft, obese, non tender, mildy distended. Bowel sounds present. : non-inspected. Cadet in place. Extremities: no clubbing or cyanosis. Trace pitting Edema to bilateral upper and lower extremities Neurological: alert and oriented to person, place, and time Assessment and Plan: Acute on chronic kidney disease stage 3B. Pre Renal findings in the context of clinical volume overload. Fractional excretion of urea score 16.77%. Baseline creatinine of 1.4-1.8 over the last 5 years. Today it is 2.4. He is certainly at risk for ATN. Urine output better once cadet was inserted. Urology is consulted. Agree with holding fluids. We will try and obtain his records from [place], Dr. Garcia. Status post kidney transplant. Continue immunosuppressive medications. Relatively Small doses noted, is to bring the medication bottles when she comes back to verify doses. Medication reviewed. No changes at this time. cc: Jhonny Sandra MD MTDD
[2019-03-05] MEDS: ZOFRAN IV PRN (13:07)
--- NOTE | 2019-03-05 14:32 | CONSULTATION ---
DATE OF CONSULTATION: 03/05/2019 ATTENDING PHYSICIAN: [facility]. REFERRING PHYSICIAN: Dr. Chaidez. HISTORY OF PRESENT ILLNESS: This 69-year-old male has a history of renal failure, status post renal transplant. He is on immune suppressive medication. He developed shortness of breath, and was treated for pneumonia at [facility], and was discharged home last week. He again became short of breath and feels like he has pneumonia. A CT scan revealed mild dilation of his collecting system, along with a distended bladder. The patient states he has been voiding without difficulty. He also had some irritative voiding, and a urine culture grew Pseudomonas. It is pansensitive. PAST MEDICAL HISTORY: Diabetes, end-stage renal disease, hypertension, congestive heart failure, coronary artery disease, peripheral vascular disease with carotid artery stenosis, pulmonary hypertension, morbid obesity. CURRENT MEDICATIONS: Documented on the chart. PAST SURGICAL HISTORY: Appendectomy, renal transplant in 2012, coronary artery stent placed. SOCIAL HISTORY: No tobacco or alcohol use. ALLERGIES: No known drug allergies. REVIEW OF SYSTEMS: He states he has not been feeling well for over a month. He was last seen in the Urology Clinic in 12/2018. His PSA at that time was 0.92. He has a history of urinary retention, and is on maximum medical therapy with Avodart and Flomax twice a day. PHYSICAL EXAMINATION: General: An obese, age-apparent, normally-developed, white male, who appears short of breath despite having face tent oxygen. He is oriented in all ways and cooperative. HEENT: Normal for age. Lungs: Clear. Cardiovascular: Regular rate and rhythm. Abdomen: Obese, soft, nontender. No hepatosplenomegaly or masses. Normal bowel sounds. : Flores catheter in place, draining clear urine. He has coronal hypospadias that is not iatrogenic. Both testes are down and palpably normal. Rectal: On 01/24/2019, he had normal sphincter tone. Prostate around 40 grams, smooth and symmetric. Extremities: No cyanosis, clubbing, or edema. Neurologic: No focal deficits. IMAGING AND LABORATORY DATA: He has a white count of 7.22, hemoglobin 10.2, hematocrit 32.9, and platelets are 156,000. Serum electrolytes have a sodium of 130, potassium 4.6, chloride 92, bicarb 21, BUN 54, creatinine 2.4. Urine culture grew Pseudomonas that is scott sensitive to all antibiotics tested. CT stone search did not reveal any kidney stones. There was mild dilation of the collecting system of the transplanted kidney, along with his distended bladder. IMPRESSION: 1. Shortness of breath with probable recurrent pneumonia. 2. Pseudomonas urinary tract infection. 3. Distention of the renal collecting system that is probably physiologic since there is no antirefluxing valve of the transplanted ureter, and when his bladder distends, the collecting system distends. With his Flores catheter in place, that will keep his bladder empty. RECOMMENDATIONS: 1. Continue IV antibiotics that cover the urinary tract infection. 2. Keep Flores catheter in place as long as needed medically. 3. Will do voiding trials after his Flores catheter is removed by checking postvoid residuals. 4. Continue Flomax and Avodart. Thank you for this consultation. cc: Michel Tovar MD
[2019-03-05] MEDS: ZOSYN 2.25 GM in NS 50 ML IV SCH ×2 (14:57→20:15)
--- NOTE | 2019-03-05 16:34 | INFECTIOUS DISEASE PROGRESS NO ---
DATE: 03/05/2019 PRESENT ILLNESS: The patient has a bibasilar pneumonia and a Pseudomonas urinary tract infection. Unfortunately he just had an allergic reaction to cefepime, which he was receiving, manifested by dyspnea. MEDICATIONS: The patient was on cefepime and Zyvox. The patient had the reaction to cefepime, as I mentioned above, and now the patient is on Zosyn and Zyvox. PHYSICAL EXAMINATION: Vital Signs: Temperature is 97.9 degrees, pulse 76, respirations 28, blood pressure 142/71. General: This is a lethargic obese elderly male he is in no acute distress. Head, Eyes, Ears, Nose, and Throat: He is very lethargic. He did not seem to hear my spoken words, and his eyes were closed for the most part. There is no drainage from his nose or ears. Neck: No stiffness. Lungs: Clear to auscultation. Cardiovascular: Heart rate is regular. Abdomen: Soft and nontender. Neurologic: As mentioned above, the patient is lethargic. He did not follow a request to move his extremities. Integument: No rash. LABORATORY AND X-RAY: Chest x-ray shows pulmonary venous congestion with underlying pneumonia. Creatinine is 2.4. GFR is 27. IgG and IgA are normal. A CBC shows a white count of 7220, hemoglobin 10.2, and platelet count 156,000. Urine culture is growing Pseudomonas, and a repeat urine culture is negative. ASSESSMENT AND PLAN: The patient has a pneumonia and a Pseudomonas urinary tract infection. My plan now is to put the patient back on Zosyn, which he tolerated well and continue Zyvox. We have entered into the patient's record that he had an allergic reaction to cefepime manifested by dyspnea, and it was severe. COMORBIDITIES: The patient has a kidney transplant for end-stage renal disease. He is obese. He also is a diabetic. cc: David Chaidez MD
--- NOTE | 2019-03-05 17:56 | PROGRESS NOTE ---
DATE: 03/05/2019 SUBJECTIVE: The patient had an episode of respiratory distress early this morning around midnight. At this time, he has some mild increase in his work of breathing. He is currently on a nonrebreather mask because he could not tolerate BiPAP. OBJECTIVE: Vital Signs: Temperature 98.2 degrees, blood pressure 151/65, heart rate 77, respirations 27, and O2 saturation 98% on nonrebreather. Intake 780 and output 600. General: This is a morbidly obese male in bed, in no acute distress. Heart: S1 and S2 normal. Regular rate and rhythm. Lungs: Diminished breath sounds bilaterally. Mild expiratory wheezes. Abdomen: Positive bowel sounds. Soft. Distended, obese. Extremities: There is 1+ edema in the lower extremities, 2+ in the upper extremities. Neurologic: The patient is alert and oriented x4. LABORATORY DATA: White blood cell count 7.2, hemoglobin 10, hematocrit 32, platelets 156,000. Sodium 130, potassium 4.6, chloride 92, CO2 of 21, BUN 54, creatinine 2.4, glucose 191, phosphorus 5.3, calcium 8.8, albumin 3.4. Chest x-ray shows pulmonary edema and basilar atelectasis. Urine culture is growing Pseudomonas. ASSESSMENT AND PLAN: 1. Acute hypoxemic respiratory failure. Multifactorial. The patient has pneumonia and pulmonary edema. Continue to treat the underlying issues. 2. Bilateral lobe pneumonia. The patient's antibiotics have been adjusted by Dr. Chaidez. We will continue with the current antibiotic regimen, supplemental oxygen, and bronchodilator therapy. 3. Pulmonary edema. The patient received a dose of Lasix orally this morning. We will monitor his response closely and monitor his intake and output closely. Further recommendations as per the business applications specialist. 4. Acute kidney injury on chronic kidney disease stage 3. The patient's creatinine continues to rise. Further management as per the planetarium sky show technician. We will avoid nephrotoxic agents. 5. History of renal transplant in 2012. Continue on the current immunosuppressive therapy. 6. Morbid obesity. Aware. 7. Diabetes mellitus type 2. Continue on sliding scale insulin coverage. 8. Hypertension. Continue on Coreg and hydralazine. 9. Hyponatremia. Unchanged. Continue to monitor closely for improvement. 10. Deep vein thrombosis prophylaxis. Continue on heparin. 11. Disposition. I had a discussion with the patient and his , and the patient has decided to remain a full code at this time. He will be transferred to the ICU. cc: Fay Stewart MD MTDD
[2019-03-05] MEDS: HUMULIN R SUBQ SCH (20:09)
[2019-03-05] MEDS: DULCOLAX PR SCH (20:09)
[2019-03-05] MEDS ORDERED: DUONEB (A & A) INH PRN (21:03)
--- NOTE | 2019-03-05 21:39 | PULMONOLOGY PROGRESS NOTE ---
DATE: 03/05/2019 SUBJECTIVE: Patient's oxygen requirements have increased and he has been transferred to the ICU. He has had a bump in his creatinine and a dose of Lasix without significant urine output. OBJECTIVE: General: Patient is awake and alert after I awoke him. He has a relatively dry cough. Vital Signs: Patient has been afebrile. Blood pressure 147/68, heart rate 78, respiratory rate 29, oxygen saturation 97% on face mask. HEENT: Pupils are equal and reactive. Oropharynx appears clear. Neck: Supple. Chest: Reveals diminished breath sounds bilaterally with bibasilar crackles. Cardiac: S1, S2. Abdomen: Obese and soft. Extremities: Reveal trace of edema. LABORATORY DATA: White blood count has normalized at 7.22. Sodium 130, potassium 4.6, chloride 92, bicarbonate 21, BUN 54, creatinine 2.4. Arterial blood gas: pH 7.31, pCO2 44, pO2 112 on BiPAP earlier this morning. IMPRESSION: A 69-year-old (birthday today) with: 1. Aspiration pneumonia. 2. Acute hypoxemic respiratory failure. 3. Pseudomonas urinary tract infection. 4. Constipation. RECOMMENDATIONS: 1. Continue current antibiotics per Infectious Disease. 2. Agree with transfer to the ICU. His pulmonary status is marginal. 3. Consider modified barium swallow. 4. Continue oxygen and BiPAP. 5. Guarded prognosis given recurrent admissions to the hospital. cc: Theron Bowman MD
[2019-03-05] MEDS: ATIVAN IV PRN (22:56)
[2019-03-06] MEDS: ZOSYN 2.25 GM in NS 50 ML IV SCH ×4 (01:39→21:12)
[2019-03-06 04:34] LABS: ALLEN TEST YES; BE -3.2 mmoll (-3.0-3.0); BLOOD TYPE ARTERIAL; HCO3-(ACT) 22.3 mmoll (20.0-26.0); METHB 1.1 % (0.0-1.5); O2HB 92.5 % (95.0-99.0); PCO2(98.6) 48 mmHg (35-45); PO2(98.6) 68 mmHg (60-100); SAMPLE BLOOD; SAO2 95.6 % (95.0-100.0); THB 14.6 g/dL (11.5-17.4)
[2019-03-06 04:35] LABS: MODALITY BI PAP
[2019-03-06] MEDS: APRESOLINE PO SCH ×3 (04:40→21:09)
[2019-03-06 05:07] LABS: BASO# 0.01 X1000 (0.0-0.2); BASO% 0.2 % (0.0-0.8); EOS# 0.06 X1000 (0.0-0.7); EOS% 1.1 % (0.0-10.0); HEMATOCRIT 31.4 % (42.0-52.0); HEMOGLOBIN 9.5 g/dL (14.0-18.0); LYMPH# 0.35 X1000 (1.2-3.4); LYMPH% 6.3 % (20.5-51.1); MCH 26.5 PG (27-31); MCHC 30.3 g/dL (33-37); MCV 87.7 FL (81-99); MONO# 0.65 X1000 (0.11-0.59); MONO% 11.8 % (1.7-9.3); MPV 11.4 FL (7.4-10.4); NEUT# 4.45 X1000 (1.4-6.5); NEUT% 80.6 % (42.2-75.2); PLT 152 X1000 (130-400); RBC 3.58 XMIL (4.7-6.1); RDW 14.2 % (11.5-14.5); WBC 5.52 X1000 (4.8-10.8)
[2019-03-06 05:55] LABS: ALBUMIN 3.2 g/dL (3.5-5.0); CALCIUM 8.3 mg/dL (8.8-10.2); CREATININE 2.5 mg/dL (0.7-1.2); PHOSPHORUS 5.2 mg/dL (2.7-4.5); POTASSIUM 4.6 mmol/L (3.5-5.1)
[2019-03-06] MEDS: HUMULIN R SUBQ SCH ×4 (06:14→21:11)
--- NOTE | 2019-03-06 06:58 | Diag Imaging Result Doc PS360 ---
CHEST-1 VIEW - 03/06/2019 INDICATION: pneumonia/pulmonary edema COMPARISON: 03/05/2019 FINDINGS: Stable severe cardiomegaly. Stable small bibasilar pleural effusions. Stable central pulmonary edema bilaterally. IMPRESSION: No change from prior. Electronically signed by Maynor Navarro 03/06/2019 6:56 AM
[2019-03-06] MEDS: LASIX IV SCH ×2 (08:11→18:39)
[2019-03-06] MEDS: HEPARIN SUBQ SCH ×2 (08:11→21:11)
[2019-03-06] MEDS: ASPIRIN PO SCH (08:12)
[2019-03-06] MEDS: COREG PO SCH ×2 (08:12→21:09)
[2019-03-06] MEDS: ZYVOX PO SCH ×2 (08:12→21:09)
[2019-03-06] MEDS: COLACE PO SCH ×2 (08:12→21:09)
[2019-03-06] MEDS: PROGRAF PO SCH ×2 (08:26→21:10)
[2019-03-06] MEDS: PREDNISONE PO SCH (08:26)
[2019-03-06] MEDS: CELLCEPT PO SCH ×2 (08:26→21:10)
[2019-03-06] MEDS: MUCOMYST 20% INH SCH ×2 (08:38→20:05)
[2019-03-06] MEDS: DUONEB (A & A) INH SCH ×5 (08:38→23:35)
--- NOTE | 2019-03-06 09:00 | INFECTIOUS DISEASE PROGRESS NO ---
DATE: 03/06/2019 PRESENT ILLNESS: The patient has a bibasilar pneumonia, a Pseudomonas urinary tract infection, and today on physical exam, it seemed that his left arm was very swollen, which I think is concerning for possible deep venous thrombosis. MEDICATIONS: This is day 2 of Zyvox and day 1 of Zosyn. PHYSICAL EXAMINATION: Vital Signs: Temperature is 98.8 degrees, pulse 77, respirations 30, blood pressure 166/64. General: This is an obese, elderly male. He does not appear to be in any acute distress. He does not respond at all to verbal stimuli. HEENT: There is no drainage from the nose or ears. I could not get a good look into the patient's mouth. Neck: There was no stiffness. Lungs: Clear to auscultation. Cardiovascular: Heart rate is regular. Abdomen: Soft and nontender. Neurologic: The patient is lethargic, but he did tell me he is feeling better today. I asked the patient to move his extremities, and he did just a little bit. Integument: No rash. IMAGING AND LABORATORY DATA: The x-ray for today has not been read by the radiologist. My reading of the chest x-ray showed that there was pulmonary venous congestion. IgG and IgA are normal. Urine is growing Pseudomonas. CBC shows a white count of 5520, hemoglobin 9.5, and platelet count 152,000. Blood gases show a pH of 7.3, a PO2 of 68, and a pCO2 of 48. Creatinine is 2.5. GFR is 26. ASSESSMENT AND PLAN: The patient has pneumonia and a Pseudomonas urinary tract infection. I plan to continue with Zosyn and Zyvox. The patient may have a clot in his left arm. I am going to order a venous Doppler study. COMORBIDITIES: He is a kidney transplant for end-stage renal disease, he is obese, and he also is diabetic. cc: David Chaidez MD
--- NOTE | 2019-03-06 11:28 | NEPHROLOGY PROGRESS NOTE ---
DATE: 03/06/2019 Subjective: Pt lying in bed resting with eyes closed. Aroused to verbal stimuli. Denies and uremic complaints. Objective: vitals, temperature 98.5, pulse 78, respirations 30, blood pressure 152/75, 02 sat 95% and 100% nonrebreather. General: Obese male lying in bed in some acute distress HEENT: Normocephalic, atraumatic. Trachea midline. Pupils equal and reactive to light. Skin: warm, dry and intact. Neck: Supple, 8 cm JVD. Cardiovascular: Distant heart tones. S1, S2. no murmurs or gallops. Respiratory: scattered rhonchi throughout anteriorly. Labored breathing. Abdomen: soft, obese, non tender, mildy distended. Bowel sounds present. : non-inspected. Flores in place. Extremities: no clubbing or cyanosis. Trace pitting Edema to bilateral upper and lower extremities Neurological: alert and oriented to person, place, and time Labs: WBC 5.52, hemoglobin 9.5, hematocrit 31.4, platelet count 152, sodium 133, potassium 4.6, chloride 95, carbon dioxide 21, Anion gap 17, BUN 66 creatinine 2.5, calcium 8.3, phosphorus 5.2, intake 1010, output 985. Impression: Acute on chronic kidney disease stage 3B.Pre Renal symptoms with volume overload. Today creatinine is 2.5. Urine output adequate but remains volume overloaded on exam. We will administer high dose of lasix and continue to hold fluids. We will continue to try and obtain his records from Dr. Jose Mina. Status post kidney transplant. Continue immunosuppressive medications. ICU nurse is to call me when gets in today with medication bottles. Medication reviewed. No changes at this time. cc: Jhonny Sandra MD [facility]
[2019-03-06] MEDS: ADALAT CC PO SCH ×2 (12:19→23:12)
--- NOTE | 2019-03-06 17:10 | PROGRESS NOTE ---
DATE: 03/06/2019 SUBJECTIVE: Mr. Pineda shows no sign of distress. Appears to be breathing comfortably. OBJECTIVE: Vital signs: Temp 98.2 degrees, pulse 76, respirations 26, blood pressure 168/66. Lungs: Clear anterolateral. Cardiovascular: Regular rhythm and rate without murmur or S3. Abdomen: Soft. Skin: Warm and dry. Urine output is 2800 mL. ASSESSMENT AND PLAN: 1. Bibasilar pneumonia, Pseudomonas urinary tract infection. His left arm seemed to be swollen. There was concern about possibly a DVT in the left arm. We suspect aspiration pneumonia, acute hypoxemic respiratory failure. 2. Pseudomonas urinary tract infection. 3. Constipation. 4. He has chronic kidney disease stage 3B, prerenal symptoms, volume overload. Creatinine was 2.5. Urine output was adequate, but remains volume overloaded on exam. So, Dr. Sandra has administered high-dose Lasix. Continue to hold fluids and continue to try to obtain records from [facility]. He is status post kidney transplant and continues immunosuppressive medications. cc: Fede Amezcua MD
[2019-03-06] MEDS: DULCOLAX PR SCH (21:20)
--- NOTE | 2019-03-06 21:29 | PULMONOLOGY PROGRESS NOTE ---
DATE: 03/06/2019 SUBJECTIVE: The patient is arousable to alert. He currently is on a 50% Ventimask. Blood pressure 175/71, respiratory rate 26, oxygen saturation 95% on 50% Venturi mask. OBJECTIVE: HEENT: Pupils are equal and reactive. Oropharynx appears clear. Neck: Is supple. Chest: Reveals crackles in the lung bases. Cardiac exam: S1, S2. Abdomen: Is soft and obese. Extremities: Reveal 1+ peripheral edema. LABORATORIES: Chest x-ray reveals cardiomegaly, pulmonary vascular congestion, small effusions. White blood count 5.52, hemoglobin 9.5, platelet count 152,000. IMPRESSION: A 69-year-old with aspiration pneumonia, pulmonary edema with fluid overload, Pseudomonas urinary tract infection, constipation. PLAN: 1. Continue to cycle BiPAP and oxygen for hypoxemic respiratory failure. 2. Attempt to diurese as planned per Nephrology with augmented Lasix dosing. His urine output has been good today. 3. Antibiotics per Infectious Disease. 4. Continue intensive care unit monitoring. The patient remains critically ill. cc: Theron Bowman MD
[2019-03-06] MEDS ORDERED: NORCO-5 PO ONE (22:31)
[2019-03-06] MEDS: ATIVAN IV PRN (23:13)
[2019-03-07] MEDS: ZOSYN 2.25 GM in NS 50 ML IV SCH ×4 (03:12→20:09)
[2019-03-07] MEDS: APRESOLINE PO SCH ×3 (03:12→20:10)
[2019-03-07 04:22] LABS: ALLEN TEST YES; BE 3.9 mmoll (-3.0-3.0); BLOOD TYPE ARTERIAL; HCO3-(ACT) 27.9 mmoll (20.0-26.0); METHB 0.9 % (0.0-1.5); O2(CT) 13.2 mL/dL (15.0-23.0); O2HB 94.1 % (95.0-99.0); PO2(98.6) 71 mmHg (60-100); SAMPLE BLOOD; SAO2 96.9 % (95.0-100.0); THB 9.9 g/dL (11.5-17.4); pH(98.6) 7.35 (7.35-7.45)
[2019-03-07 04:24] LABS: PCO2(98.6) 55 mmHg (35-45)
[2019-03-07 06:12] LABS: HEMATOCRIT 30.9 % (42.0-52.0); HEMOGLOBIN 9.3 g/dL (14.0-18.0); MCH 26.5 PG (27-31); MCHC 30.1 g/dL (33-37); RBC 3.51 XMIL (4.7-6.1)
[2019-03-07] MEDS: HUMULIN R SUBQ SCH ×4 (06:23→20:09)
[2019-03-07] MEDS: LASIX IV SCH ×2 (06:38→18:30)
[2019-03-07 07:24] LABS: ALB/GLOB RATIO 0.8; ALBUMIN 2.7 g/dL (3.5-5.0); CALCIUM 8.9 mg/dL (8.8-10.2); MAGNESIUM 2.4 mg/dL (1.5-2.7); PHOSPHORUS 3.7 mg/dL (2.7-4.5); TOTAL BILIRUBIN 0.4 mg/dL (0.20-1.00); TOTAL PROTEIN 5.9 g/dL (6.3-8.3)
--- NOTE | 2019-03-07 07:40 | Diag Imaging Result Doc PS360 ---
EXAM: CHEST-PORTABLE INDICATION: abnormal exam TECHNIQUE: One view COMPARISON: 03/06/2019 FINDINGS: Pulmonary edema has improved slightly, especially at the lower lung zones. Small pleural effusions are essentially stable. No new consolidation is identified. Cardiac silhouette is stable. IMPRESSION: Interval slight improvement. Electronically signed by Bob Becker 03/07/2019 7:38 AM
[2019-03-07] MEDS: HEPARIN SUBQ SCH ×2 (08:30→20:09)
[2019-03-07] MEDS: PROGRAF PO SCH ×2 (08:30→20:09)
[2019-03-07] MEDS: COLACE PO SCH ×2 (08:30→20:09)
[2019-03-07] MEDS: CELLCEPT PO SCH ×2 (08:30→20:10)
[2019-03-07] MEDS: COREG PO SCH ×2 (08:30→20:10)
[2019-03-07] MEDS: ZYVOX PO SCH ×2 (08:31→20:10)
[2019-03-07] MEDS: ASPIRIN PO SCH (08:31)
[2019-03-07] MEDS: PREDNISONE PO SCH (08:31)
[2019-03-07] MEDS: MUCOMYST 20% INH SCH ×2 (08:51→19:44)
[2019-03-07] MEDS: DUONEB (A & A) INH SCH ×5 (08:51→23:11)
[2019-03-07 09:39] LABS: URINE SOURCE CATH
[2019-03-07 09:52] LABS: BILIRUBIN URINE NEGATIVE (NEGATIVE); BLOOD URINE NEGATIVE (NEGATIVE); COLOR STRAW; GLUCOSE URINE NEGATIVE (NEGATIVE); KETONE URINE NEGATIVE (NEGATIVE); LEUKOCYTES URINE NEGATIVE (NEGATIVE); NITRITE URINE NEGATIVE (NEGATIVE); PROTEIN URINE NEGATIVE (NEGATIVE); SP GRAVITY URINE 1.009; TURBIDITY URINE CLEAR (CLEAR); UROBILINOGEN URINE NORMAL (NORMAL)
[2019-03-07 09:53] LABS: UR EPITHELIAL CELLS <10 /HPF (<10); URINE BACTERIA NEGATIVE /HPF; URINE RBC <10 /HPF (<10); URINE WBC <10 /HPF (<10)
[2019-03-07] MEDS: ADALAT CC PO SCH ×2 (11:06→23:28)
--- NOTE | 2019-03-07 14:23 | PROGRESS NOTE ---
DATE: 03/07/2019 SUBJECTIVE: Mr. Pineda is doing better, feeling better. He was sleeping, resting. He was easy to arouse, but went right back to sleep. OBJECTIVE: Vital signs: Temperature 98.3 degrees, pulse 69, respirations 24. Last 4 blood pressures 152/75, 160/71, 168/87, 171/88. Lungs: Clear in all lung good. Cardiovascular: Regular rhythm abdomen rate without murmur or S3. Abdomen: Soft. Skin: Warm and dry. IMAGING: Chest x-ray with interval slight improvement, pulmonary edema improved slightly, especially in the lower lung zones. Small pleural effusion essentially stable. No new consolidation. ASSESSMENT AND PLAN: A 69-year-old with aspiration pneumonia, pulmonary edema and fluid overload, Pseudomonas urinary tract infection and constipation. Doing better. Continue cyclic BiPAP and oxygen for hypoxemic respiratory failure. Continue to attempt diuresis per Nephrology with high- dose Lasix. Continue present antibiotics. Clinically seems to be improving. Lastly, diabetes mellitus type 2. Sugars are still running around the 200s, 250 and above, so we may need to adjust his insulin. He is on a renal diet at this point. REVIEW OF ORDERS: 1. I do not see any change. 2. He is status post renal transplant and so continue his immunosuppressive therapy. REVIEW OF HIS LABS: No significant change. cc: Fede Amezcua MD
--- NOTE | 2019-03-07 14:36 | NEPHROLOGY PROGRESS NOTE ---
DATE: 03/07/2019 Subjective: Pt lying in bed resting with eyes closed. Aroused to verbal stimuli. Denies and uremic complaints. Objective: vitals, temperature 97.7, pulse 73, respirations 31, blood pressure 162/67, 02 sat 95% on 15 L Venturi mask. General: Obese male lying in bed in some acute distress HEENT: Normocephalic, atraumatic. Trachea midline. Pupils equal and reactive to light. Skin: warm, dry and intact. Neck: Supple, 8 cm JVD. Cardiovascular: Distant heart tones. S1, S2. no murmurs or gallops. Respiratory: scattered rhonchi throughout posteriorly. Labored breathing with accessory muscle use. Abdomen: soft, obese, non tender, mildy distended. Bowel sounds present. : non-inspected. Flores in place. Extremities: no clubbing or cyanosis. Trace pitting Edema to bilateral upper and lower extremities Neurological: alert and oriented to person, place, and time Labs: Wbc 4, hemoglobin 9.3, hematocrit 30.9, platelet count 158, sodium 135, potassium 4.0, chloride 94, carbon dioxide 29, and I get 12, BUN 59, creatinine 2.0, calcium 8.9, phosphorus 3.7, Albumin 2.7. ABG: PH 7.35, PCO2 55, PO2 71, HCO3 27.9, basic excess 3.9, intake 1082, output 4550. Impression: Acute on chronic kidney disease stage 3B.Pre Renal symptoms with volume overload. Improving. Creatinine 2.0 today. 4.5L output with high dosed lasix, we will continue these. Status post kidney transplant. Medication reviewed. No changes at this time. I spoke with Dr. Jossue Ledbetter with [facility] and reviewed his recent care at [facility]. Diagnosed with Flu as an outpatient but repeat testing negative. Treated with Levaquin for pneumonia. Cr>3 secondary to Prograf toxicity and dose was decreased. Creatinine 1.7 at the clinic after discharge and urine culture was positive for Pseudomonas at low colony count. cc: Jhonny Sandra MD [facility]
--- NOTE | 2019-03-07 14:51 | Extremity Venous Study ---
PROCEDURE NAME: Venous U/S Bilateral Legs - 03/03/2019 REFERRING PRACTITIONER: Kalyani Hu. REFERRING PHYSICIAN: Dr. Caputo. ADULT SCHOOL TEACHER: Terri. INDICATION: Leg swelling and elevated D-dimer. FINDINGS: The deep and superficial veins of both lower extremities were imaged throughout their course. They are compressible, patent, and without thrombus. The venous waveforms are somewhat pulsatile. INTERPRETATION: No deep venous thrombosis or supraventricular tachycardia of either lower extremity. Congestive heart failure may be a component of the leg swelling based on the pulsatile venous waveforms. cc: MD Geetha Carrera CRNP
--- NOTE | 2019-03-07 15:54 | INFECTIOUS DISEASE PROGRESS NO ---
DATE: 03/07/2019 PRESENT ILLNESS: The patient has a bibasilar pneumonia, Pseudomonas urinary tract infection, and yesterday I had felt that both of his arms were very swollen, but today they look much better. MEDICATIONS: This is day 3 of treatment with Zyvox and day 2 of treatment with Zosyn. PHYSICAL EXAMINATION: Vital Signs: Temperature 98 degrees, pulse 78, respirations 27, and blood pressure 162/67. General: This is an obese elderly male. He is sitting in a chair today. He does not appear to be in any acute distress. Head/eyes/ears/nose/throat: He can hear my spoken words and see near objects. I looked into his mouth, and there was no white coating on his tongue. Neck: There was no stiffness or pain when he moves his neck. Lungs: Clear to auscultation. Cardiovascular: Heart rate is regular. Abdomen: Soft and nontender. Extremities: Both arms are less swollen. The legs still have some edema but no erythema. Neurologic: Today, the patient is more alert. He can move his extremities. There is no tremor. LABORATORY AND RADIOLOGY: The patient's CBC shows a white count of 4000, hemoglobin 9.3, and platelet count of 158,000. Blood gases show a pH of 7.35, PO2 of 71, and the pCO2 is 55. Urinalysis shows no white cells or bacteria. Repeat urine culture is negative. Chest x-ray shows improvement in bilateral pulmonary edema. ASSESSMENT AND PLAN: Patient has pneumonia, and a urinary tract infection. I am going to continue both antibiotics. I am also going to get a procalcitonin level. I had ordered a Doppler venous study yesterday, but the result isn't back yet. COMORBIDITIES: The patient is a kidney transplant for end-stage renal disease. He is obese, and he also is a diabetic. cc: David Chaidez MD
[2019-03-07] MEDS: ZOFRAN IV PRN (17:01)
[2019-03-07] MEDS: DULCOLAX PR SCH (20:10)
[2019-03-07] MEDS: ATIVAN IV PRN (23:29)
[2019-03-08] MEDS: ZOSYN 2.25 GM in NS 50 ML IV SCH ×4 (01:52→20:09)
[2019-03-08] MEDS: APRESOLINE PO SCH ×3 (03:25→20:09)
--- NOTE | 2019-03-08 05:18 | PULMONOLOGY PROGRESS NOTE ---
DATE: 03/07/2019 SUBJECTIVE: The patient is awake, alert, and conversant. He reports his shortness of breath has improved. OBJECTIVE: Vital Signs: The patient has been afebrile for the last 24 hours. Intake 1304, output 4550, oxygen saturation 96% on 50% Venturi face mask. HEENT: Pupils are equal and reactive. Oropharynx appears clear. Neck: Supple. Lungs: Chest reveals good air entry bilaterally with crackles and rhonchi bilaterally as well. Cardiac: S1, S2. Abdomen: Obese and soft. Extremities: Reveal slight decrease in peripheral edema. LABORATORIES: Sodium 135, potassium 4, chloride 94, bicarbonate 29, BUN 59, creatinine 2.0, and glucose 177. IMPRESSION: A 69-year-old with 1. Aspiration pneumonia. 2. Fluid overload and pulmonary edema. 3. Pseudomonas urinary tract infection. 4. Constipation. 5. Acute renal insufficiency with clinical improvement even in the face of diuresis. PLAN: 1. Continue reflux precautions. 2. Continue antibiotics per Infectious Disease. 3. Continue oxygen and wean as tolerated. cc: Theron Bowman MD
[2019-03-08 06:39] LABS: MODALITY BI PAP
[2019-03-08] MEDS: LASIX IV SCH ×2 (06:43→20:09)
[2019-03-08] MEDS: HUMULIN R SUBQ SCH ×4 (06:43→20:08)
[2019-03-08 07:05] LABS: HEMATOCRIT 34.1 % (42.0-52.0); HEMOGLOBIN 10.2 g/dL (14.0-18.0); MCH 27.1 PG (27-31); MCHC 29.9 g/dL (33-37); MCV 90.5 FL (81-99); MPV 10.9 FL (7.4-10.4); RBC 3.77 XMIL (4.7-6.1); RDW 14.3 % (11.5-14.5); WBC 4.64 X1000 (4.8-10.8)
[2019-03-08] MEDS: ZOFRAN IV PRN ×4 (07:22→21:05)
[2019-03-08 07:47] LABS: CALCIUM 9.2 mg/dL (8.8-10.2); CREATININE 2.1 mg/dL (0.7-1.2); PHOSPHORUS 3.1 mg/dL (2.7-4.5)
[2019-03-08] MEDS: DUONEB (A & A) INH SCH ×5 (08:13→23:26)
[2019-03-08] MEDS: MUCOMYST 20% INH SCH ×2 (08:13→19:44)
[2019-03-08] MEDS: COLACE PO SCH ×2 (08:48→20:08)
[2019-03-08] MEDS: PREDNISONE PO SCH (08:49)
[2019-03-08] MEDS: COREG PO SCH ×2 (08:49→20:08)
[2019-03-08] MEDS: ZYVOX PO SCH ×2 (08:49→20:08)
[2019-03-08] MEDS: ASPIRIN PO SCH (08:49)
[2019-03-08] MEDS: HEPARIN SUBQ SCH ×2 (08:49→20:09)
[2019-03-08] MEDS: PROGRAF PO SCH ×2 (08:54→20:08)
[2019-03-08] MEDS: CELLCEPT PO SCH ×2 (08:55→20:08)
[2019-03-08] MEDS ORDERED: DULCOLAX PR PRN (09:15)
--- NOTE | 2019-03-08 09:53 | PROGRESS NOTE ---
DATE: 03/08/2019 SUBJECTIVE: Mr. Pineda is feeling better. He is awake this morning. He is coughing some deep inspirations. He feels like he may be a little constipated. OBJECTIVE: Vital Signs: Temperature 98.6 degrees, pulse 66, respirations 24 and blood pressure 166/71. HEENT: Pupils are equal and round. CVP less than 6 cm. Lungs: Clear anterior and posterior. Cardiovascular exam: Regular rhythm and rate without murmur or S3. Abdomen: Soft. Skin: Skin is warm and dry. ASSESSMENT AND PLAN: 1. Aspiration pneumonia, fluid overload and pulmonary edema, found Pseudomonas and urinary tract from urine cultures. Treating for possible urinary tract infection, so seems to be improving. Continue present antibiotics and continue oxygen, wean as tolerated. 2. Constipation. Let him have some milk of magnesia as needed. He just started eating a little bit yesterday. 3. He is a renal transplant in 2012. Continue his current immunosuppressive medication. 4. Diabetes mellitus type 2. Continue to follow sugars and sliding scale. 5. History of congestive heart failure. I think his congestive heart failure was due to ejection fraction. 6. History of coronary artery disease. 7. History of right carotid artery stenosis. 8. Pulmonary hypertension. Review of his current orders: He is on heparin 5000 units subcutaneous q. 12 hours, Zyvox 600 mg p.o. q. 12 hours, Coreg 25 mg b.i.d., Colace 100 mg b.i.d., Lasix 100 mg IV q. 12 hours, Apresoline 25 mg p.o. q. 8 hours and Ativan 0.5 mg IV b.i.d., mycophenolate 250 mg p.o. b.i.d., and nifedipine ER 90 mg p.o. q. 12 hours, prednisone 5 mg a day. Prograf 0.5 mg p.o. b.i.d., Piperacillin 2.25 g IV q. 6 hours. cc: Fede Amezcua MD
[2019-03-08] MEDS: MILK OF MAGNESIA PO SCH (11:08)
[2019-03-08] MEDS: ADALAT CC PO SCH ×2 (11:08→23:03)
--- NOTE | 2019-03-08 12:02 | INFECTIOUS DISEASE PROGRESS NO ---
DATE: 03/08/2019 PRESENT ILLNESS: The patient has bibasilar pneumonia and urinary tract infection. MEDICATIONS: This is the fourth day of treatment with Zyvox and the third day of treatment with Zosyn. PHYSICAL EXAMINATION: Vital Signs: Temperature is 99 degrees, pulse 65, respirations 24, blood pressure is 166/71. General: This is an obese, elderly male. He is in no acute distress. Head, Eyes, Ears, Nose, and Throat: He can hear my spoken words and see near objects. He did not have any white patches in his mouth. Neck: No pain with movement. Lungs: Clear to auscultation. Cardiovascular: Heart rate is regular. Abdomen: Soft and nontender. Extremities: The patient has bilateral arm and leg edema but no erythema. Neurologic: The patient is alert. He can move his extremities. There is no tremor. LABORATORY AND RADIOLOGY: There is no new radiographic study for today. The patient's CBC shows a white count of 4640, hemoglobin 10.2, and platelet count 186,000. Urine culture grew Pseudomonas and repeat urine culture is negative. ASSESSMENT AND PLAN: Patient has pneumonia and urinary tract infection. I plan to continue both antibiotics. I ordered yesterday a procalcitonin level, the results of which are pending. COMORBIDITIES: The patient a has a kidney transplant for end-stage renal disease, he is obese, and also he is a diabetic. cc: David Chaidez MD
[2019-03-08] MEDS ORDERED: INSULIN PEN NEEDLES ONE (14:21)
--- NOTE | 2019-03-08 15:13 | NEPHROLOGY PROGRESS NOTE ---
DATE: 03/08/2019 ADDENDUM: Subjective: Pt lying in bed resting with eyes closed. Aroused to verbal stimuli, voices not getting any rest last night. Denies any uremic complaints. Objective: vitals, temperature 98.6, pulse 66, respirations 24, blood pressure 166/71, 02 sat 96% on 40% venti mask. General: Obese male lying in bed in no acute distress HEENT: Normocephalic, atraumatic. Trachea midline. Pupils equal and reactive to light. Dry membranes. Skin: warm, dry and intact. Neck: Supple, 6 cm JVD. Cardiovascular: S1, S2. no murmurs or gallops. Respiratory: scattered rhonchi throughout posteriorly. Accessory muscle use. Abdomen: soft, obese, non tender, distended. Bowel sounds present. : non-inspected. Flores in place. Extremities: no clubbing or cyanosis. Trace pitting Edema to bilateral upper and lower extremities Neurological: Drowsy, oriented to person, place, and time Labs: intake 1140, output 2850 Wbc 4.64, hemoglobin 10.2, hematocrit 34.1, platelet count 186, sodium 137, potassium 4.0, chloride 94, carbon dioxide 31, anion gap 12, BUN 52, creatinine 2.1, calcium 9.2, phosphorus 3.1. Impression/Plan SHARMAINE overlying chronic transplant glomerulopathy. Baseline Cr=1.7. Improving slowly. Volume overload. Responding well to furosemide. Continue current care. Acid/Base. Serum bicarbonate is rising secondary to diuretic therapy. Observe. cc: Jhonny Sandra MD MTDD
[2019-03-08] MEDS: NOVOLOG MIX 70/30 SUBQ SCH (17:06)
--- NOTE | 2019-03-08 18:19 | Extremity Venous Study ---
PROCEDURE NAME: Venous U/S Left Arm - 03/06/2019 PROCEDURE: Left upper extremity venous duplex and color flow imaging study using the [employer] Vivid E9 ultrasound system with a 9 L-D transducer. REFERRING PHYSICIAN: David Chaidez MD [employer] PROJECT MANAGER: Jamaica Gill RVT INDICATIONS: Left upper extremity pain and edema suggestive of deep venous thrombosis. FINDINGS: The internal jugular vein was compressible throughout its length without evidence of thrombus. The left subclavian and axillary veins had flow through them without evidence of thrombus. The left brachial vein was compressible throughout its length, as were the superficial veins of the arm, cephalic and basilic. The small veins in the antecubital fossa and left forearm were all compressible. INTERPRETATION: No evidence of acute deep or superficial venous thrombosis, left upper extremity. cc: MD David Antonio MD
--- NOTE | 2019-03-08 19:33 | PULMONOLOGY PROGRESS NOTE ---
DATE: 03/08/2019 SUBJECTIVE: The patient was awake upon arrival. He reports his shortness of breath has diminished. OBJECTIVE: The patient has been afebrile for the last 24 hours. Blood pressure 149/71, heart rate 61, respiratory rate 14, oxygen saturation 97% on Venturi mask. Intake 1140 mL, output 2850 mL. Despite negative fluid balance, he has not had significant weight loss during this hospitalization. HEENT: Pupils are equal and reactive. Oropharynx appears clear. Neck is supple. Chest reveals crackles in both lung bases. Cardiac exam: S1, S2. Abdomen is soft. Extremities reveal trace to 1+ peripheral edema. LABORATORY DATA: Sodium 137, potassium 4.0, chloride 94, bicarbonate 52, creatinine 2.1, glucose 272. White blood count 4.6, hemoglobin 10.2, platelet count 168,000. IMPRESSION: A 69-year-old with: 1. Aspiration pneumonia. 2. Fluid overload and pulmonary edema. 3. Pseudomonas urinary tract infection. 4. Constipation. 5. Acute renal insufficiency. 6. Prior renal transplantation. PLAN: 1. Continue diuretics per Infectious Disease. 2. Wean oxygen as tolerated. 3. Continue reflux precautions. 4. Continue antibiotics per Infectious Disease. 5. Followup chest x-ray tomorrow morning. cc: Theron Bowman MD
[2019-03-09] MEDS: ZOSYN 2.25 GM in NS 50 ML IV SCH ×4 (02:35→20:45)
[2019-03-09] MEDS: APRESOLINE PO SCH ×3 (04:39→20:44)
[2019-03-09 05:39] LABS: BASO# 0.02 X1000 (0.0-0.2); BASO% 0.4 % (0.0-0.8); EOS# 0.08 X1000 (0.0-0.7); EOS% 1.7 % (0.0-10.0); HEMATOCRIT 35.9 % (42.0-52.0); HEMOGLOBIN 10.7 g/dL (14.0-18.0); IMM GRAN# 0.03 X1000 (0.0-0.04); IMM GRAN% 0.6 % (0.0-0.5); LYMPH# 0.66 X1000 (1.2-3.4); MCH 26.8 PG (27-31); MCHC 29.8 g/dL (33-37); MCV 89.8 FL (81-99); MONO# 0.39 X1000 (0.11-0.59); MONO% 8.2 % (1.7-9.3); MPV 10.9 FL (7.4-10.4); NEUT# 3.55 X1000 (1.4-6.5); NEUT% 75.1 % (42.2-75.2); PLT 212 X1000 (130-400); WBC 4.73 X1000 (4.8-10.8)
[2019-03-09 06:04] LABS: CALCIUM 9.4 mg/dL (8.8-10.2); CREATININE 1.9 mg/dL (0.7-1.2); POTASSIUM 4.1 mmol/L (3.5-5.1)
[2019-03-09 06:05] LABS: ALBUMIN 3.3 g/dL (3.5-5.0); CALCIUM 9.4 mg/dL (8.8-10.2); CREATININE 1.7 mg/dL (0.7-1.2); PHOSPHORUS 2.8 mg/dL (2.7-4.5); POTASSIUM 4.1 mmol/L (3.5-5.1)
[2019-03-09] MEDS: HUMULIN R SUBQ SCH ×4 (06:10→20:45)
[2019-03-09] MEDS: LASIX IV SCH ×2 (06:55→20:44)
--- NOTE | 2019-03-09 07:09 | Diag Imaging Result Doc PS360 ---
EXAM: CHEST-1 VIEW 03/09/2019 HISTORY: pneumonia TECHNIQUE: AP portable at 0517 COMMENT: The inspiration is less optimal than on 03/07/2019. There is some pleural fluid on the right. The hazy opacity present in both lungs of the time the previous examination has not changed appreciably despite the less optimal inspiration. The heart size remains enlarged. IMPRESSION: Pulmonary edema and/or pneumonia with right pleural effusion. Cardiomegaly. Electronically signed by Rob Adamson 03/09/2019 7:06 AM
[2019-03-09] MEDS: MILK OF MAGNESIA PO SCH (08:15)
[2019-03-09] MEDS: ASPIRIN PO SCH (08:15)
[2019-03-09] MEDS: COLACE PO SCH ×2 (08:15→20:44)
[2019-03-09] MEDS: COREG PO SCH ×2 (08:15→20:44)
[2019-03-09] MEDS: ZYVOX PO SCH ×2 (08:15→20:44)
[2019-03-09] MEDS: PREDNISONE PO SCH (08:16)
[2019-03-09] MEDS: HEPARIN SUBQ SCH ×2 (08:16→20:44)
[2019-03-09] MEDS: NOVOLOG MIX 70/30 SUBQ SCH ×2 (08:16→16:49)
[2019-03-09] MEDS: CELLCEPT PO SCH ×2 (08:17→21:00)
[2019-03-09] MEDS: PROGRAF PO SCH ×2 (08:17→21:05)
[2019-03-09] MEDS: DUONEB (A & A) INH SCH ×5 (08:28→23:21)
--- NOTE | 2019-03-09 10:54 | PROGRESS NOTE ---
DATE: 03/09/2019 SUBJECTIVE: Mr. Pineda was sleeping was easy to arouse. He says he feels better. Breathing appears comfortable. Feels like his swelling has gone down in his lower extremities. OBJECTIVE: Temp 98.1 degrees, pulse 64, respirations 19, blood pressure 166/77. Pupils are equal and round. Lungs are clear in all lung good. Cardiovascular regular rate without murmur or S3. DATA: Urine output is almost 6 L. His chest x-ray from this morning: Pulmonary edema, pneumonia, right pleural effusion. ASSESSMENT AND PLAN: 1. Aspiration pneumonia, fluid overload, pulmonary edema, Pseudomonas urinary tract infection, constipation, acute renal insufficiency, and he has prior renal transplant. He looks better. 2. I think we can transfer him to the floor. REVIEW OF HIS ORDERS: He is on Zyvox 600 mg p.o. q.12h and aspirin 81 mg a day, Coreg 25 mg b.i.d., hydralazine 25 mg p.o. q.8 hours, insulin NovoLog 70/30 8 units twice a day, mycophenolate 250 mg p.o. b.i.d., nifedipine ER 90 mg p.o. q. 12 hours, prednisone 5 mg daily, Prograf 0.5 mg b.i.d., and Piperacillin 2.25 g IV q.6 hours. LABORATORY DATA: Review of his lab: White count 7730 hematocrit is 35, platelet count is 212,000. Sodium 140, potassium 4.1, chloride 94, BUN 45, creatinine 1.7 which has come down from 1.9 yesterday. Blood sugars 284, 284, 245. cc: Fede Amezcua MD
[2019-03-09] MEDS: ADALAT CC PO SCH ×2 (10:59→23:48)
[2019-03-09] MEDS: MUCOMYST 20% INH SCH ×2 (11:59→19:20)
--- NOTE | 2019-03-09 15:42 | NEPHROLOGY PROGRESS NOTE ---
DATE: 03/09/2019 SUBJECTIVE: He is feeling better overall. Shortness of breath is improving. He is hoping to get out of the bed today. He is on nasal cannula. OBJECTIVE: Vital signs: Blood pressure 162/59, heart rate 84, respirations 16, afebrile. Intake 1.1 liters, output 3.8 liters. General: No acute distress. Skin: Warm and dry. Neck: Neck veins are not appreciated today. Trachea midline. Heart: Regular. No gallops. Lungs: Equal. No crackles or wheezes anteriorly. Abdomen: Soft. Nontender. Bowel sounds present. Extremities: Trace edema. No clubbing or cyanosis. IMPRESSION: 1. Volume overload. Significantly improved. I will decrease his furosemide to 40 mg intravenously twice a day. 2. 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 Creatinine 1.7, which approximates his baseline. 3. Pyelonephritis in transplant kidney. He is receiving Zosyn and improving. 4. Hypertension. Above target but acceptable. We will continue to work on his volume status. 5. Immunosuppression. No change. cc: Jhonny Sandra MD
--- NOTE | 2019-03-09 17:39 | INFECTIOUS DISEASE PROGRESS NO ---
DATE: 03/09/2019 PRESENT ILLNESS: The patient has bibasilar pneumonia and a Pseudomonas urinary tract infection. MEDICATIONS: This is day 5 of Zyvox and day 4 of Zosyn. PHYSICAL EXAMINATION: Vital Signs: Temperature is 98.2 degrees, pulse 64, respirations 19, blood pressure 166/77. General: This is an obese, elderly male. He is in no acute distress. Head/eyes/ears/nose/throat: He can hear my spoken words and see near objects. He does not have any white coating on his tongue. Neck: No pain with movement. Lungs: Clear to auscultation. Cardiovascular: Heart rate is regular. Abdomen: Soft and nontender. Extremities: The patient has bilateral leg and arm edema but no erythema. Neurologic: The patient is alert. He can move his extremities. There is no tremor. LABORATORY AND RADIOLOGY: Chest x-ray shows bilateral pneumonia. Procalcitonin level is 0.56, which translates into that it is very likely the patient has pneumonia. Creatinine is 1.7. GFR is 40. CBC shows a white count of 4730, hemoglobin 10.7, and platelet count 212,000. ASSESSMENT AND PLAN: Patient has pneumonia and urinary tract infection. I plan to continue with the current antibiotics, namely Zyvox and Zosyn. COMORBIDITIES: The patient has a kidney transplant for end-stage renal disease. He is obese, and he also is a diabetic. cc: David Chaidez MD
[2019-03-10] MEDS: ZOSYN 2.25 GM in NS 50 ML IV SCH ×5 (02:07→22:09)
--- NOTE | 2019-03-10 03:18 | PULMONOLOGY PROGRESS NOTE ---
DATE: 03/09/2019 SUBJECTIVE: The patient is awake, alert, and conversant. He has been transferred to the 1st floor. He reports he overall feels better. He has a dry cough, shortness of breath has diminished. OBJECTIVE: Vital Signs: The patient has been afebrile for the last 24 hours. Blood pressure 161/58, heart rate 64, respiratory rate 22, oxygen saturation 98% on 4 L per nasal cannula. HEENT: Pupils are equal and reactive. Oropharynx appears clear. Neck: Supple. Chest: Reveals crackles in both lung bases. Cardiac: S1, S2. Abdomen: Obese and soft. Extremities: Reveal trace to 1+ peripheral edema. LABORATORY DATA: Sodium 140, potassium 4.1, chloride 94, bicarbonate 35, BUN 45, creatinine 1.7. IMPRESSION: A 69-year-old with 1. Aspiration pneumonia. 2. Fluid overload and pulmonary edema. 3. Pseudomonas urinary tract infection. 4. Status post renal transplantation with acute renal insufficiency. 5. Constipation. DISCUSSION: A 69-year-old with problems outlined above. He continues to improve with diuretics and antibiotics. PLAN: 1. Continue antibiotics per Infectious Disease. 2. Diuretics to be adjusted by Nephrology. 3. Continue reflux precautions. 4. Two-view chest x-ray tomorrow. cc: Theron Bowman MD
[2019-03-10] MEDS: APRESOLINE PO SCH ×3 (04:30→20:46)
[2019-03-10] MEDS: LASIX IV SCH ×4 (05:54→22:09)
[2019-03-10] MEDS: HUMULIN R SUBQ SCH ×4 (06:00→20:46)
[2019-03-10 06:28] LABS: HEMATOCRIT 36.2 % (42.0-52.0); HEMOGLOBIN 10.8 g/dL (14.0-18.0); MCH 26.9 PG (27-31); MCHC 29.8 g/dL (33-37); MPV 10.6 FL (7.4-10.4); RBC 4.02 XMIL (4.7-6.1); RDW 14.2 % (11.5-14.5); WBC 4.78 X1000 (4.8-10.8)
[2019-03-10 06:58] LABS: ALBUMIN 3.3 g/dL (3.5-5.0); CALCIUM 9.1 mg/dL (8.8-10.2); CREATININE 1.8 mg/dL (0.7-1.2)
[2019-03-10] MEDS: MUCOMYST 20% INH SCH ×2 (08:00→19:00)
[2019-03-10] MEDS: DUONEB (A & A) INH SCH ×5 (08:00→23:05)
[2019-03-10] MEDS: NOVOLOG MIX 70/30 SUBQ SCH ×2 (08:01→17:15)
[2019-03-10] MEDS: COLACE PO SCH ×2 (08:09→20:46)
[2019-03-10] MEDS: PROGRAF PO SCH ×2 (08:09→20:46)
[2019-03-10] MEDS: CELLCEPT PO SCH ×2 (08:10→20:46)
[2019-03-10] MEDS: HEPARIN SUBQ SCH ×2 (08:10→20:46)
[2019-03-10] MEDS: ZYVOX PO SCH ×2 (08:10→20:46)
[2019-03-10] MEDS: COREG PO SCH ×2 (08:10→20:46)
[2019-03-10] MEDS: ASPIRIN PO SCH (08:10)
[2019-03-10] MEDS: MILK OF MAGNESIA PO SCH (08:28)
[2019-03-10] MEDS: PREDNISONE PO SCH (08:30)
--- NOTE | 2019-03-10 08:32 | Diag Imaging Result Doc PS360 ---
EXAM: CHEST-2 VIEWS HISTORY: abnormal exam TECHNIQUE: Two views COMPARISON: 03/09/2019 FINDINGS: Slightly improved inspiratory effort. There are small pleural effusions. Atelectasis is found in the lower lungs. The heart is not enlarged. Decreased vascular distention. IMPRESSION: Interval improvement Electronically signed by Kenny Santana 03/10/2019 8:29 AM
--- NOTE | 2019-03-10 13:25 | PROGRESS NOTE ---
DATE: 03/10/2019 Mr. Pineda reports she is breathing better, feels more comfortable. His bowels are moving. He ate a little bit of lunch. We just moved him out of the unit yesterday down on the 1st floor. OBJECTIVE: Vital Signs: Temp 97.7 degrees, pulse 65, respirations 18, blood pressure 202/64. Note his last several blood pressures 156/68, 161/58, 176/60. 202/64. HEENT: Pupils are equal and round. Lungs: Are clear in all lung good. Cardiovascular: Regular rhythm and rate without murmur or S3. Urine output is 2400 mL. Blood sugar 343, 229, 297. Chest x-ray, interval improvement, slightly improved inspiratory effort. There is small pleural effusion, atelectasis found on the lower lungs. Heart was not enlarged. ASSESSMENT AND PLAN: 1. Aspiration pneumonia. Fluid overload and pulmonary edema. Continue present antibiotics and treatment. He is improving. 2. Pseudomonas urinary tract infection. 3. Status post renal transplant. Acute renal insufficiency. Renal function stable. 4. Constipation. Continue present regimen. He does seem to be getting stronger. He is on Zosyn 2.25 g IV q.6, tacrolimus 0.5 mg b.i.d., mycophenolate 250 mg b.i.d., Novolin 70/30, 8 units twice a day, Lasix 40 mg IV q.12, Colace 100 mg b.i.d., Coreg 25 mg b.i.d., aspirin 81 mg a day, Zyvox 600 mg p.o. q.12. He is on low-dose heparin 5000 units subcu q.12. cc: Fede Amezcua MD
[2019-03-10] MEDS: ADALAT CC PO SCH (14:18)
--- NOTE | 2019-03-10 22:00 | PULMONOLOGY PROGRESS NOTE ---
DATE: 03/10/2019 SUBJECTIVE: The patient is awake and alert. He reports he did ambulate in the hallway. He reports his shortness of breath has diminished. OBJECTIVE: Vital Signs: The patient has been afebrile for the last 24 hours. Blood pressure 173/58, heart rate 78, respiratory rate 18, oxygen saturation 99% on 4 L per nasal cannula. HEENT: Pupils are equal and reactive. Oropharynx is clear. Neck: Supple. Chest: Crackles in both lung bases. Cardiac: S1-S2. Abdomen: Soft and obese. Extremities: Peripheral edema 1+ with some decrease in peripheral edema. LABORATORY AND DIAGNOSTIC DATA: Sodium 136, potassium 4.0, chloride 91, bicarbonate 39, creatinine 1.8. White blood count 4.78, hemoglobin 10.8, platelet count 218,000. Chest x-ray reveals decreased vascular congestion with some decreased small effusions. IMPRESSION: A 69-year-old with: 1. Aspiration pneumonia. 2. Fluid overload and pulmonary edema. 3. Pseudomonas urinary tract infection. 4. Acute renal insufficiency with prior renal transplantation. PLAN: 1. Continue current antibiotic regimen. 2. Continue diuresis as tolerated. 3. Wean oxygen as tolerated. 4. Mobilize as tolerated. 5. Continue reflux precautions. cc: Theron Bowman MD
[2019-03-11] MEDS: ADALAT CC PO SCH ×3 (00:13→23:56)
[2019-03-11] MEDS: APRESOLINE PO SCH ×3 (04:09→20:55)
[2019-03-11] MEDS: ZOSYN 2.25 GM in NS 50 ML IV SCH ×4 (04:10→20:56)
[2019-03-11 05:10] LABS: HEMATOCRIT 36.6 % (42.0-52.0); HEMOGLOBIN 11.1 g/dL (14.0-18.0); MCH 27.2 PG (27-31); MCHC 30.3 g/dL (33-37); MCV 89.7 FL (81-99); MPV 10.9 FL (7.4-10.4); RBC 4.08 XMIL (4.7-6.1); RDW 14.4 % (11.5-14.5); WBC 4.81 X1000 (4.8-10.8)
[2019-03-11 05:54] LABS: ALBUMIN 3.1 g/dL (3.5-5.0); CREATININE 1.7 mg/dL (0.7-1.2); POTASSIUM 4.4 mmol/L (3.5-5.1)
[2019-03-11] MEDS: HUMULIN R SUBQ SCH ×4 (06:23→20:57)
[2019-03-11] MEDS: LASIX IV SCH ×2 (06:23→18:03)
[2019-03-11] MEDS: DUONEB (A & A) INH SCH ×5 (07:34→23:11)
[2019-03-11] MEDS: MUCOMYST 20% INH SCH ×2 (07:34→19:30)
[2019-03-11] MEDS: NOVOLOG MIX 70/30 SUBQ SCH ×2 (07:57→17:59)
[2019-03-11] MEDS: MILK OF MAGNESIA PO SCH (09:18)
[2019-03-11] MEDS: ZYVOX PO SCH ×2 (09:19→20:56)
[2019-03-11] MEDS: COLACE PO SCH ×2 (09:19→20:56)
[2019-03-11] MEDS: ASPIRIN PO SCH (09:19)
[2019-03-11] MEDS: HEPARIN SUBQ SCH ×2 (09:19→20:57)
[2019-03-11] MEDS: COREG PO SCH ×2 (09:20→20:55)
[2019-03-11] MEDS: PROGRAF PO SCH ×2 (09:20→20:55)
[2019-03-11] MEDS: CELLCEPT PO SCH ×2 (09:20→20:55)
[2019-03-11] MEDS: PREDNISONE PO SCH (09:20)
--- NOTE | 2019-03-11 09:36 | PROGRESS NOTE ---
DATE: 03/11/2019 SUBJECTIVE: Mr. Pineda reports that he is doing better, breathing better, feels a little stronger. He remains afebrile. OBJECTIVE: Temperature 98.0 degrees, pulse 70, respirations 18, blood pressure 171/54. Pupils are equal and round. Lungs are clear in all lung good. Cardiovascular Examination: Regular rhythm and rate without murmur or S3. Abdomen is soft. Skin is warm and dry. Urine output is 3 L. Blood sugar 229, 342, 260. ASSESSMENT/PLAN: Aspiration pneumonia, fluid overload, pulmonary edema, Pseudomonas urinary tract infection, and acute renal insufficiency. He is status post prior renal transplant. Seems to be improving. Continue physical therapy. REVIEW OF HIS ORDERS: Heparin 5000 units subcutaneous q.12, Zyvox 600 mg p.o. q.12, aspirin 81 mg a day, Coreg 25 mg b.i.d., Colace 100 mg b.i.d., Lasix 40 mg IV q.12, Apresoline 25 mg p.o. q.8 hours, insulin NovoLog 70/30 with 8 units twice a day, mycophenolate 250 mg p.o. b.i.d., nifedipine ER 90 mg p.o. q.12, prednisone 5 mg a day, Prograf 0.5 mg b.i.d., and Zosyn 2.25 g IV q.6. LABORATORY DATA: Looks good. Creatinine is 1.7, come down to 1.7 which is encouraging. Blood sugars 275, 277, 255. Looking at his insulin 70/30, I am going to go up to 12 units twice a day. cc: Fede Amezcua MD
[2019-03-12] MEDS: ZOSYN 2.25 GM in NS 50 ML IV SCH ×4 (01:04→22:06)
[2019-03-12] MEDS: APRESOLINE PO SCH ×3 (04:12→22:06)
[2019-03-12 05:23] LABS: HEMATOCRIT 33.5 % (42.0-52.0); HEMOGLOBIN 10.3 g/dL (14.0-18.0); MCH 27.7 PG (27-31); MCHC 30.7 g/dL (33-37); MCV 90.1 FL (81-99); MPV 10.2 FL (7.4-10.4); RBC 3.72 XMIL (4.7-6.1); RDW 14.3 % (11.5-14.5); WBC 4.11 X1000 (4.8-10.8)
[2019-03-12 05:53] LABS: ALBUMIN 3.4 g/dL (3.5-5.0); CALCIUM 8.3 mg/dL (8.8-10.2); CREATININE 1.5 mg/dL (0.7-1.2); PHOSPHORUS 2.8 mg/dL (2.7-4.5); POTASSIUM 3.8 mmol/L (3.5-5.1)
[2019-03-12] MEDS: LASIX IV SCH (05:59)
[2019-03-12] MEDS: HUMULIN R SUBQ SCH ×4 (05:59→22:07)
--- NOTE | 2019-03-12 07:10 | INFECTIOUS DISEASE PROGRESS NO ---
DATE: 03/12/2019 PRESENT ILLNESS: The patient has bibasilar pneumonia and a Pseudomonas urinary tract infection. MEDICATIONS: This is day 8 of Zyvox, and day 7 of Zosyn. PHYSICAL EXAMINATION: Vital Signs: Temperature is 98.1 degrees, pulse 67, respirations 18, blood pressure 168/54. General: This is an obese, elderly male. He is in no acute distress. HEENT: He can hear my spoken words and see near objects. I did not see any white patches in his mouth. Neck: No pain with movement. Lungs: Clear to auscultation. Cardiovascular: Regular heart rate. Abdomen: Soft and nontender. Neurologic: The patient is alert. He can move his extremities. There is no tremor. IMAGING AND LABORATORY DATA: Chest x-ray shows decreased vascular congestion. CBC shows a white count of 4110, hemoglobin 10.3, platelet count 184,000. Creatinine is 1.5. GFR is 46. Sputum grew normal fabrizio. Urine culture was positive for Pseudomonas on 03/03/2019, and negative on 03/04/2019. Chest x-ray shows decreased vascular congestion. ASSESSMENT AND PLAN: The patient has pneumonia and urinary tract infection. I am going to continue the current antibiotics. I think the patient can go home soon, possibly on a combination of Levaquin and doxycycline. COMORBIDITIES: The patient has kidney transplant for end-stage renal disease. He is obese, and also he is a diabetic. cc: David Chaidez MD
[2019-03-12] MEDS: MUCOMYST 20% INH SCH ×2 (08:23→19:29)
[2019-03-12] MEDS: DUONEB (A & A) INH SCH ×5 (08:23→23:03)
--- NOTE | 2019-03-12 08:51 | INFECTIOUS DISEASE PROGRESS NO ---
DATE: 03/12/2019 ADDENDUM: I have discussed the patient's case with the patient and Dr. Amezcua. We all agree to send the patient home on a combination of Levaquin and doxycycline for 7 more days. Some of the side effects of the antibiotics, including rash, diarrhea, seizures, tendon rupture, and avoiding sunlight have been explained to the patient, who agrees with treatment. I have requested that the patient have an appointment at my office 1 week after discharge. cc: David Chaidez MD
[2019-03-12] MEDS: NOVOLOG MIX 70/30 SUBQ SCH ×2 (09:00→17:17)
[2019-03-12] MEDS: COREG PO SCH ×2 (09:02→22:06)
[2019-03-12] MEDS: ZYVOX PO SCH ×2 (09:02→22:06)
[2019-03-12] MEDS: PROGRAF PO SCH ×2 (09:02→22:06)
[2019-03-12] MEDS: MILK OF MAGNESIA PO SCH (09:02)
[2019-03-12] MEDS: CELLCEPT PO SCH ×2 (09:02→22:06)
[2019-03-12] MEDS: COLACE PO SCH ×2 (09:02→22:06)
[2019-03-12] MEDS: ASPIRIN PO SCH (09:02)
[2019-03-12] MEDS: HEPARIN SUBQ SCH (09:14)
[2019-03-12] MEDS: PREDNISONE PO SCH (09:14)
[2019-03-12] MEDS: LASIX PO SCH (09:15)
--- NOTE | 2019-03-12 11:20 | NEPHROLOGY PROGRESS NOTE ---
DATE: 03/12/2019 Subjective: sitting up in bed eating breakfast. Voices going home today. Objective: vitals, temperature and pulse 78, respirations pressure 167/67, 02 sat 92% on 3 L nasal cannula. General: Obese male lying in bed in no acute distress HEENT: Normocephalic, atraumatic. Trachea midline. Pupils equal and reactive to light. Dry membranes. Skin: warm, dry and intact. Neck: Supple, no JVD. Cardiovascular: S1, S2. no murmurs or gallops. Respiratory: Lungs clear anteriorly. Accessory muscle use. Abdomen: soft, obese, non tender, distended. Bowel sounds present. : non-inspected. Cadet in place. Extremities: no clubbing, cyanosis, or edema Neurological: Drowsy, oriented to person, place, and time Labs: Wbc 4.11, hemoglobin 10.3, 33.5, platelet count 184, sodium 134, potassium 3.8, chloride 91, carbon dioxide 32, anion gap11, BUN 30, creatinine 1.5, calcium 8.3, phosphorus 2.8. Intake 895, output 1775. Impression: 1. Acute on chronic kidney disease stage 3B. Improving. Creatinine 1.5 today. We will discontinue his cadet and change his lasix to 40mg PO Q day. 2. Status post kidney transplant. No change. 3. Blood Pressure. Above target. Increased his hydralazine. 4. Medication reviewed. No changes at this time. 5. UTI. Completing antibiotics. 6. Hx Renal transplant. No change in immunosuppression. cc: Jhonny Sandra MD [facility]
--- NOTE | 2019-03-12 13:14 | PROGRESS NOTE ---
DATE: 03/12/2019 SUBJECTIVE: Mr. Pineda is feeling better. Every day, seems to have some improvement. He is to work on his strength. He does not want to go to rehab so he wants to go home with home health. He needs physical therapy to work with him and I told him that we would set our sites on going home maybe Tuesday with home health. Today is Tuesday. OBJECTIVE: Temperature 97.7 degrees, pulse 62, respirations 16, blood pressure 153/55. Pupils are equal and round. Lungs are clear in all lung good. Cardiovascular Examination: Regular rhythm and rate without murmur or S3. Abdomen is soft. Urine output was 3400 mL. ASSESSMENT AND PLAN: 1. Can go home with a combination of Levaquin and doxycycline, I think for a total of 7 more days. Side effects of antibiotic include rash, diarrhea, seizures, tendon rupture, and avoiding sunlight. I think Dr. Chaidez will follow him up in 1 week in his office. 2. Status post kidney transplant. He has chronic kidney disease, posttransplant. Urinary tract infection has been treated improved and so take Flores catheter out. 3. Diabetes mellitus type 2. Sugars appear to be under better control but were still running in the mid 200s so we will continue sliding scale. I am going to go up on his 70/30 to 16 units twice a day. 4. Continue his medicines for his kidney transplant, his mycophenolate and his tacrolimus, and we will continue his Zosyn at 2.25 g intravenously every 6 hours. cc: Fede Amezcua MD
[2019-03-12] MEDS: ADALAT CC PO SCH (13:20)
[2019-03-13] MEDS: ADALAT CC PO SCH (01:41)
[2019-03-13] MEDS: ZOSYN 2.25 GM in NS 50 ML IV SCH ×2 (01:41→09:01)
[2019-03-13] MEDS: APRESOLINE PO SCH (04:57)
[2019-03-13 05:19] LABS: HEMATOCRIT 33.2 % (42.0-52.0); HEMOGLOBIN 10.2 g/dL (14.0-18.0); MCH 27.5 PG (27-31); MCHC 30.7 g/dL (33-37); MCV 89.5 FL (81-99); MPV 9.9 FL (7.4-10.4); RBC 3.71 XMIL (4.7-6.1); RDW 14.5 % (11.5-14.5); WBC 4.4 X1000 (4.8-10.8)
--- NOTE | 2019-03-13 06:48 | PULMONOLOGY PROGRESS NOTE ---
DATE: 03/12/2019 SUBJECTIVE: The patient is awake, alert, and conversant. He reports he feels a little better every day. OBJECTIVE: Vital Signs: The patient has been afebrile for the last 24 hours. Blood pressure 158/54, heart rate 79, respiratory rate 16, oxygen saturation 97% on 2 L per nasal cannula. HEENT: Pupils are equal and reactive. Oropharynx appears clear. Neck: Supple. Chest: Reveals crackles at both lung bases. Cardiac: S1, S2. Abdomen: Obese and soft. Extremities: Reveal stable peripheral edema. LABORATORY DATA: White blood count 4.11, hemoglobin 10.3, platelet count 184,000. Sodium 134, potassium 3.8, chloride 91, bicarbonate 32, BUN 30, creatinine 0.5. IMPRESSION: A 69-year-old with: 1. Aspiration pneumonia. 2. Fluid overload and pulmonary edema. 3. Pseudomonas urinary tract infection. 4. Acute renal injury with continued improvement. PLAN: 1. Agree with transitioning patient to oral antibiotics as noted by Dr. David Chaidez. 2. Wean oxygen as tolerated. The patient may require oxygen at discharge. 3. Continue to mobilize as tolerated. 4. Blood pressure control by Dr. Sandra. 5. We will obtain a two-view chest x-ray tomorrow in anticipation of discharge home soon. cc: Theron Bowman MD
[2019-03-13] MEDS: HUMULIN R SUBQ SCH ×2 (06:51→11:58)
--- NOTE | 2019-03-13 07:44 | Diag Imaging Result Doc PS360 ---
EXAM: CHEST-2 VIEWS 03/13/2019 HISTORY: abnormal exam TECHNIQUE: PA and lateral chest COMMENT: There are platelike opacities in lung bases which have worsened since 03/10/2019. There may be some pleural fluid in the posterior costophrenic sulci. IMPRESSION: Worsened atelectasis versus pneumonia. Electronically signed by Rob Adamson 03/13/2019 7:42 AM
[2019-03-13] MEDS: MUCOMYST 20% INH SCH (08:41)
[2019-03-13] MEDS: DUONEB (A & A) INH SCH ×2 (08:42→11:06)
[2019-03-13] MEDS: NOVOLOG MIX 70/30 SUBQ SCH (08:58)
[2019-03-13] MEDS: CELLCEPT PO SCH (09:00)
[2019-03-13] MEDS: LASIX PO SCH (09:01)
[2019-03-13] MEDS: ZYVOX PO SCH (09:01)
[2019-03-13] MEDS: PREDNISONE PO SCH (09:01)
[2019-03-13] MEDS: COLACE PO SCH (09:01)
[2019-03-13] MEDS: ASPIRIN PO SCH (09:01)
[2019-03-13] MEDS: COREG PO SCH (09:01)
[2019-03-13] MEDS: PROGRAF PO SCH (09:01)
[2019-03-13] MEDS: MILK OF MAGNESIA PO SCH (09:03)
--- NOTE | 2019-03-13 10:44 | NEPHROLOGY PROGRESS NOTE ---
DATE: 03/13/2019 Subjective: sitting up in bed eating breakfast. Voices going home tomorrow with home health. Objective: vitals, temp 97.8, pulse 71, respirations 18, blood pressure 176/65, 02 sat 99% on 3 L nasal cannula. General: Obese male lying in bed in no acute distress HEENT: Normocephalic, atraumatic. Trachea midline. Pupils equal and reactive to light. Dry membranes. Skin: warm, dry and intact. Neck: Supple, no JVD. Cardiovascular: S1, S2. no murmurs or gallops. Respiratory: Lungs clear anteriorly. Abdomen: soft, obese, non tender, less distended than yesterday. Bowel sounds present. : non-inspected. Extremities: no clubbing, cyanosis, or edema Neurological:Alert, oriented to person, place, and time Labs: intake 694, output 2500. Wbc 4.40, hemoglobin 10.2, adequate 33.2, platelet count 159. Impression: Acute on chronic kidney disease stage 3B. Improving. Will order a bladder scan to check post void residual. Fluid volume. Euvolemic on exam. Encouraged to do daily weights at home and call us if he has a weight gain. Will follow up in office. Status post kidney transplant. No change. Blood Pressure. No changes at this time. Medication reviewed. No changes at this time. cc: Jhonny Sandra MD [facility]TDD
[2019-03-13 11:47] VITALS: BP 147/58
--- NOTE | 2019-03-14 13:14 | DISCHARGE SUMMARY ---
ADMISSION DATE: 03/03/2019 DISCHARGE DATE: 03/13/2019 DISPOSITION: Home [facility]. FOLLOWUP: 1. Dr. Kartik Crump. 2. Dr. Bowman. 3. Dr. Chaidez. 4. Dr. Sandra. CONSULTATIONS DURING THIS ADMISSION: 1. Infectious Disease was consulted. Patient was seen by Dr. Chaidez. 2. Nephrology was consulted. Patient was seen by Dr. Sandra. 3. Pulmonary Medicine was consulted. Patient was seen by Dr. Bowman. INVASIVE PROCEDURES DURING THIS ADMISSION: None. IMAGING STUDIES OF SIGNIFICANCE: 1. Chest x-ray done on 03/03/2019 showed bilateral lower lung infiltrates, edema or scarring. No dense consolidation. 2. Extremity venous studies done on 03/03/2019 showed no DVT. 3. A CT scan of the chest done on 03/03/2019 showed borderline cardiomegaly, small bilateral pleural effusions. Mild infiltrate or atelectasis, lower lobe pneumonia cannot be excluded. 4. Scan of the abdomen and pelvis shows small bilateral pleural effusion with adjacent atelectasis. Atrophic kidneys changes of the [place] kidney transplant kidney, right lower quadrant. Mild distention of the transplant renal collecting system. No etiology apparent. 5. Extremities ultrasound, upper ultrasound showed no evidence of acute DVT. Multiple x-rays were done afterwards. ADMISSION DIAGNOSES: 1. Acute hypoxemic respiratory failure. 2. Bilateral lower lobe pneumonia. 3. Acute kidney injury. 4. Diabetes type 2. 5. Status post renal transplant in 2012. 6. Coronary artery disease. 7. Morbid obesity. DIAGNOSIS AT THE TIME OF DISCHARGE: 1. Acute hypoxemic respiratory failure. 2. Aspiration pneumonia. 3. Fluid overload with pulmonary edema. 4. Pseudomonas aeruginosa urinary tract infection. 5. Acute on chronic kidney disease. 6. Status post transplanted kidney. 7. Chronic immunosuppressive therapy. 8. History of coronary artery disease status post stent. The patient is currently asymptomatic. 9. Right carotid artery stenosis. 10. Diabetes mellitus. DISCHARGE MEDICATIONS: 1. Carvedilol 25 mg b.i.d. 2. Insulin NovoLog 20 units 3 times per day. 3. CellCept 250 b.i.d. 4. Tacrolimus 0.5 b.i.d. 5. Furosemide 40 mg daily. 6. Gabapentin 300 mg b.i.d. 7. Nifedipine 90 mg p.o. q.12. 8. Crestor 10 mg at bedtime. 9. Glargine 90 units subcutaneous at bedtime. 10. Aspirin 81 mg daily. 11. Prednisone 0.5 p.o. daily. 12. Hydralazine 25 mg 3 times per day. 13. Doxycycline 100 mg p.o. q.12. 14. Levaquin 500 p.o. daily. 15. Dulcolax 10 mg p.r.n. PRESENTING COMPLAINT: Shortness of breath. HISTORY OF PRESENTING COMPLAINT: Mr. Pineda is a 69-year-old gentleman who presented to the emergency department because of shortness of breath. He has history of status post renal transplant in 2013, congestive heart failure, diabetes mellitus. Upon presenting to the emergency department, he was found to be saturating 87%. A chest x-ray revealed bilateral lung infiltrates and edema. He was admitted to the medical floor for therapy. HOSPITAL COURSE: Mr. Pineda was admitted to the medical floor and was started on broad-spectrum IV antibiotics. He was also found to be congested with fluid overload. He was given multiple doses of IV Lasix. Dr. Sandra was consulted from a Nephrology standpoint and he was also seen by Pulmonary Medicine (Dr. Bowman). Infectious Disease was also consulted to help with antimicrobial coverage. The patient was seen by Dr. Chaidez. Throughout the hospital course Edwin continues to improve and by the time of the discharge he was negative balance of [id number],993. His weight on admission which was 275, had dropped to 250, which was about 25 pounds weight loss during the hospital course. This morning, he refers to be feeling a whole lot better. Infectious Disease has recommended to keep him on Levaquin and doxycycline for 7 additional days. His blood culture came back 5 days negative. His urine culture was Pseudomonas aeruginosa. A repeat urine culture has been negative. We think he is fairly stable to be discharged. DISCHARGE INSTRUCTIONS: All the discharge instructions discussed with him. He voiced understanding. Time spent for discharge is 36 minutes. cc: MD Kartik Schneider MD
== END 2019-03-13 13:44 | disposition home health service (06) | DRG 177 ==
LOC: ED 08:27 → SUATTDRO 11:56 → 1N 11:56 → 2N 12:36 → ICU 03-05 12:52 → 1N 03-09 11:26
PROVIDERS: ATTEND Internal Medicine

== ENCOUNTER 2019-04-21 08:45 | Inpatient (IN) ==
[2019-04-21] MEDS ORDERED: LASIX IV ONE (09:09)
--- NOTE | 2019-04-21 09:15 | PROVIDER DOCUMENTATION ---
HPI-Cardiac General - General Chief Complaint: SEPSIS ALERT - D Stated Complaint: SOB,EDEMA Time Seen by Provider: 04/21/19 09:00 Source: patient Allergies/Adverse Reactions: Patient Allergies Allergy/AdvReac Type Severity Reaction Status Date / Time cefepime Allergy Severe SHORTNESS Verified 04/21/19 09:27 OF BREATH Home Medications: Home Medication List Medication Instructions Recorded Confirmed Last Taken Type Carvedilol 25 mg PO BID 07/19/12 04/21/19 04/20/19 History Insulin Aspart [Novolog] 1 unit SQ DIRECTED 12/13/14 04/21/19 04/20/19 Hi story Mycophenolate Mofetil [Cellcept] 250 mg PO BID 12/13/14 04/21/19 04/20/19 History Tacrolimus 0.5 mg PO BID 12/13/14 04/21/19 04/20/19 History Furosemide [Lasix] 40 mg PO DAILY 08/21/18 04/21/19 04/20/19 History Gabapentin 300 mg PO BID 08/21/18 04/21/19 04/20/19 History Nifedipine [Nifedipine ER] 90 mg PO Q12H 08/21/18 04/21/19 04/20/19 History Insulin Glargine [Basaglar] 50 unit SUBQ QHS 08/22/18 04/21/19 04/20/19 History Rosuvastatin Calcium [Crestor] 10 mg PO QHS 08/22/18 04/21/19 04/20/19 History Aspirin 81 mg PO DAILY #30 chewtab 08/23/18 04/21/19 04/20/19 Rx Prednisone 0.5 mg PO DAILY 02/10/19 04/21/19 04/20/19 History Hydralazine HCl 1 tab PO TID 03/03/19 04/21/19 04/20/19 History - History of Present Illness-Cardiac Nature of Presenting Problem: Patient presents with shortness of breath since tuesday. He states he had a kidney transplant 5 years ago and has a history of chf. He states his fluid pill quit working Tuesday. he has been getting short of breath and swelling. Denies chest pain Location: reports: other (short of breath) Quality of Pain: reports: none Severity in ED: severe Onset/Duration: 4 days ago Timing: still present Context/Activities at Onset: reports: light activity Modifying Factors: improves with: nothing Recent use of:: denies: no stimulants, caffeine, decongestant, cocaine, amphetamine, other Nitro Today/Relief: reports: no nitro taken today Aspirin Treatment Today: reports: no aspirin today Prior Chest Pain/Cardiac Workup: reports: other (diagnosed with chf) Associated Symptoms: reports: fatigue Similar Symptoms Previously?: Yes Recently Seen Here or By Another Healthcare Provider: No Review of Systems - Adult - REVIEW OF SYSTEMS - ADULT Constitutional: reports: no symptoms reported Eyes: reports: no symptoms reported Ears, Nose, Mouth & Throat: reports: no symptoms reported Cardiovascular: reports: see HPI Respiratory: reports: see HPI Gastrointestinal: reports: no symptoms reported Genitourinary: reports: no symptoms reported Musculoskeletal: reports: no symptoms reported Integumentary: reports: no symptoms reported Neurological: reports: no symptoms reported Psychiatric: reports: no symptoms reported Past History - Adult - PAST MEDICAL HISTORY-ADULT Review of Records: reports: Old Records Reviewed, Nursing Assessment Review Major Childhood Illnesses: reports: denies history Cardiovascular: reports: CHF, HTN, PR Respiratory: reports: denies history Gastrointestinal: reports: denies history Obstetrical/Gynecological: reports: denies history Genitourinary: reports: ESRD, other (kidney transplant) Neurological: reports: denies history Psychiatric: reports: denies history Endocrine/Immune: reports: Diabetes - PRIOR SURGERIES/PROCEDURES Surgical/Procedure History: reports: appendectomy, cardiac stent, other (kidney transplant) - IMMUNIZATION STATUS Childhood Immunizations: See Nurse Assessment Flu Vaccine: See Nurse Assessment - FAMILY HISTORY Family History: reviewed, not pertinent Physical Exam-General - PHYSICAL EXAM-ADULT Initial Vital Signs Reviewed: Yes - CONSTITUTIONAL General Appearance: moderate distress, obese - EYES Eyes: PERRL/EOMI, pink conjunctivae - HEAD, EARS, NOSE, MOUTH & THROAT HENMT: normocephalic/atraumatic, moist mucous membranes, normal ENT inspection, TMs normal - NECK Neck: non-tender, full range of motion, supple - RESPIRATORY Respiratory: respiratory distress, rales - CARDIOVASCULAR Cardiovascular: normal peripheral pulses, regular rate, rhythm - GASTROINTESTINAL (ABDOMEN) Abdominal Exam: normal bowel sounds - LYMPHATIC Lymphatic: no adenopathy - MUSCULOSKELETAL Back Exam: normal inspection, no CVA tenderness Extremity: pedal edema - SKIN Integumentary: normal color, normal turgor, warm/dry - NEUROLOGIC Neurologic: grossly normal - PSYCHIATRIC Psych/Mental Status: normal mood/affect, normal thought content - HEART Score HEART Score: History: Slightly Suspicious HEART Score: ECG: Non-Specific Repolarization Disturbance/LBBB/PM HEART Score: Age: > or = 65 Years HEART Score: Risk Factors for Atherosclerotic Disease: > or = 3 Risk Factors or History of Atherosclerotic Disease HEART Score: Troponin: < or = Normal Limit Total HEART Score:: 5 Progress - PLAN OF CARE/RESULTS Progress/Plan/Lab Results: Vital Signs - 8 hr 04/21/19 08:54 04/21/19 09:05 04/21/19 09:06 Temperature 97.9 F Pulse Rate 102 H 85 Respiratory Rate 28 H 28 H Blood Pressure 146/68 153/66 O2 Sat by Pulse Oximetry 89 L 92 L 92 L 04/21/19 09:15 04/21/19 09:30 04/21/19 09:43 Temperature Pulse Rate 84 84 Respiratory Rate 23 25 H Blood Pressure O2 Sat by Pulse Oximetry 95 92 L 92 L 04/21/19 09:44 04/21/19 09:45 04/21/19 09:59 Temperature Pulse Rate 85 86 Respiratory Rate 28 H 16 Blood Pressure 149/68 O2 Sat by Pulse Oximetry 92 L 95 96 04/21/19 10:00 04/21/19 10:02 04/21/19 10:15 Temperature Pulse Rate 84 84 82 Respiratory Rate 31 H 24 25 H Blood Pressure 161/64 O2 Sat by Pulse Oximetry 96 95 96 04/21/19 10:19 04/21/19 10:30 04/21/19 10:32 Temperature Pulse Rate 83 83 Respiratory Rate 25 H 28 H Blood Pressure 165/71 O2 Sat by Pulse Oximetry 96 95 94 L 04/21/19 10:45 04/21/19 11:02 04/21/19 11:27 Temperature Pulse Rate 83 82 83 Respiratory Rate 26 H 28 H 20 Blood Pressure 152/66 148/67 O2 Sat by Pulse Oximetry 95 95 95 04/21/19 11:32 04/21/19 11:35 04/21/19 12:02 Temperature Pulse Rate 82 82 83 Respiratory Rate 29 H 29 H 29 H Blood Pressure 146/64 143/67 147/65 O2 Sat by Pulse Oximetry 95 95 96 Laboratory Results - last 24 hr 04/21/19 04/21/19 04/21/19 09:55 09:55 09:55 WBC 12.64 H RBC 4.41 L Hgb 11.9 L Hct 37.4 L MCV 84.8 MCH 27.0 MCHC 31.8 L RDW Std Deviation 15.7 H Plt Count 213 MPV 10.9 H Immature Gran % (Auto) 0.4 Neut % (Auto) 84.8 H Lymph % (Auto) 4.7 L [place] % (Auto) 9.9 H Eos % (Auto) 0.1 Baso % (Auto) 0.1 Immature Gran # (Auto) 0.05 H Neut # (Auto) 10.73 H Lymph # (Auto) 0.59 L [place] # (Auto) 1.25 H Eos # (Auto) 0.01 Baso # (Auto) 0.01 PT INR PTT (Actin FS) Specimen Type Sample Site pH pCO2 pO2 HCO3 Base Excess Oxyhemoglobin ABG O2 Sat (Calculated) ABG O2 Saturation ABG Carboxyhemoglobin ABG Methemoglobin Fede Test A-a O2 Difference Total Hemoglobin Lactate Liter Flow Blood Gas Modality FiO2 % Sodium 129 L Potassium 4.8 Chloride 92 L Carbon Dioxide 19 L Anion Gap 18 BUN 47 H Creatinine 2.8 H Estimated GFR/1.73 m2 23 BUN/Creatinine Ratio 17 Glucose 291 H Calculated Osmolality 282 Calcium 9.4 Total Bilirubin 0.62 AST 12 ALT 13 Alkaline Phosphatase 64 Creatine Kinase 72 Troponin T Qqa-N-Pvpcpzkehkx Pept 2586 H Total Protein 6.9 Albumin 4.2 Globulin 2.7 Albumin/Globulin Ratio 1.6 Plasma Lactate Urine Source 04/21/19 04/21/19 04/21/19 09:55 10:00 10:45 WBC RBC Hgb Hct MCV MCH MCHC RDW Std Deviation Plt Count MPV Immature Gran % (Auto) Neut % (Auto) Lymph % (Auto) [place] % (Auto) Eos % (Auto) Baso % (Auto) Immature Gran # (Auto) Neut # (Auto) Lymph # (Auto) [place] # (Auto) Eos # (Auto) Baso # (Auto) PT 14.5 INR 1.11 PTT (Actin FS) 28.3 Specimen Type ARTERIAL Sample Site R RADIAL pH 7.34 L pCO2 39 pO2 73 HCO3 21.4 Base Excess -4.4 L Oxyhemoglobin 93.4 L ABG O2 Sat (Calculated) 18.9 ABG O2 Saturation 97.2 ABG Carboxyhemoglobin 2.70 H ABG Methemoglobin 1.2 Fede Test YES A-a O2 Difference 163.0 Total Hemoglobin 14.4 Lactate 1.50 Liter Flow 5.0 Blood Gas Modality CANNULA FiO2 % 40.0 Sodium Potassium Chloride Carbon Dioxide Anion Gap BUN Creatinine Estimated GFR/1.73 m2 BUN/Creatinine Ratio Glucose Calculated Osmolality Calcium Total Bilirubin AST ALT Alkaline Phosphatase Creatine Kinase Troponin T 0.016 Gbr-G-Aaewfmahsgh Pept Total Protein Albumin Globulin Albumin/Globulin Ratio Plasma Lactate Urine Source 04/21/19 04/21/19 10:45 12:12 WBC RBC Hgb Hct MCV MCH MCHC RDW Std Deviation Plt Count MPV Immature Gran % (Auto) Neut % (Auto) Lymph % (Auto) [place] % (Auto) Eos % (Auto) Baso % (Auto) Immature Gran # (Auto) Neut # (Auto) Lymph # (Auto) [place] # (Auto) Eos # (Auto) Baso # (Auto) PT INR PTT (Actin FS) Specimen Type Sample Site pH pCO2 pO2 HCO3 Base Excess Oxyhemoglobin ABG O2 Sat (Calculated) ABG O2 Saturation ABG Carboxyhemoglobin ABG Methemoglobin Fede Test A-a O2 Difference Total Hemoglobin Lactate Liter Flow Blood Gas Modality FiO2 % Sodium Potassium Chloride Carbon Dioxide Anion Gap BUN Creatinine Estimated GFR/1.73 m2 BUN/Creatinine Ratio Glucose Calculated Osmolality Calcium Total Bilirubin AST ALT Alkaline Phosphatase Creatine Kinase Troponin T Hzn-G-Axnticiweiq Pept Total Protein Albumin Globulin Albumin/Globulin Ratio Plasma Lactate 1.1 Urine Source CATH Orders Category Date Time Status Cardiac Monitoring DIRECTED Care 04/21/19 09:02 Active IV Insertion ORDERED Care 04/21/19 09:02 Completed Notify MD of + Sepsis Screen NOW Care 04/21/19 09:02 Active Notify Physician As Ordered Care 04/21/19 09:02 Active CHEST-1 VIEW [RAD] Stat Exams 04/21/19 09:02 Completed ABG [RESP] Routine Lab 04/21/19 10:00 Completed BLOOD CULTURE [BLDCUL] Stat Lab 04/21/19 09:50 Received CBC WITH DIFF [HEME] Stat Lab 04/21/19 09:55 Completed CK PROFILE [SP CHEM] Stat Lab 04/21/19 09:55 Completed COMPREHENSIVE METABOLIC PANEL [CHEM] Stat Lab 04/21/19 09:55 Completed LACTATE, PLASMA [CHEM] Lab 04/21/19 10:45 Completed LACTATE, PLASMA [CHEM] Lab 04/21/19 12:27 Ordered LACTATE, PLASMA [CHEM] Lab 04/21/19 15:15 Uncollected PRO B-NATRIURETIC PEPTIDE Stat Lab 04/21/19 09:55 Completed PROTIME WITH INR [COAG] Stat Lab 04/21/19 10:45 Completed PTT [COAG] Stat Lab 04/21/19 10:45 Completed TROPONIN T Stat Lab 04/21/19 09:55 Completed URINALYSIS W/POSS RFLX CULT [URINALYSIS] Stat Lab 04/21/19 12:12 Results Furosemide [Lasix] Med 04/21/19 09:09 Discontinued 60 mg IV NOW ONE Lorazepam [Ativan] Med 04/21/19 10:02 Discontinued 1 mg IM NOW ONE BIPAP Urgent Oth 04/21/19 10:21 Active Oxygen Device Stat Oth 04/21/19 09:02 Active EKG [EKG] Stat Ther 04/21/19 09:03 Ordered Result Diagrams: 04/21/19 09:55 04/21/19 09:55 - REASSESSMENT Reassessment #1 Time Reassessed: 09:38 Status: unchanged (appears in chf) Reassessment #2 Time Reassessed: 10:57 Status: improving (on bipap) - EKG 1 Time of EKG reading by physician:: 08:56 EKG Read and Signed by:: Pineda Romeo EKG Interpretation (*Must complete 3 of following elements*): Abnormal Rate: 86 Rhythm: sinus QRS: LBB DC Interval: prolonged ST Wave: non-specific ST changes Prior EKG Comparison: unchanged from prior - CONSULTS/PCP/HOSPITALIST Notification #1 *Consult/PCP/Hospitalist*: Mirna Time Discussed: 12:32 (admit to Dr Amezcua) Consult Disposition: Will see in ED Departure - Departure Date of Disposition Decision: 04/21/19 Time of Disposition Decision: 12:33 DIAGNOSIS: CHF exacerbation Disposition: ADMITTED INPATIENT 09 Certified Medical Emergency: Emergent Condition: Fair Referrals and Follow-Ups: Kartik Crump MD [Primary Care Provider] - - Critical Care Note This patient required my direct & personal management of CC.: No Attestation - Physician/ AIDE Attestation Patient care was provided by Advanced Practice Provider:: No The physician spent face to face time with patient:: Yes Advanced Practice Provider documentation review:: Supervising physician onsite and consulted in the evaluation and care of this patient. The physician did have a face to face encounter with the patient.
--- NOTE | 2019-04-21 09:38 | Diag Imaging Result Doc PS360 ---
EXAM: CHEST-1 VIEW HISTORY: positive sepsis screen TECHNIQUE: Chest single view COMPARISON: 03/21/2019 FINDINGS: Poor inspiratory effort. Mild increased interstitial markings believed to be vasculature. No consolidation. No pleural effusions identified. Mildly prominent heart. IMPRESSION: Mild increased interstitial markings believed to be pulmonary edema. Electronically signed by Kenny Santana 04/21/2019 9:35 AM
[2019-04-21] MEDS ORDERED: ATIVAN IM ONE (10:02)
[2019-04-21 10:13] LABS: ALLEN TEST YES; BE -4.4 mmoll (-3.0-3.0); BLOOD TYPE ARTERIAL; HCO3-(ACT) 21.4 mmoll (20.0-26.0); METHB 1.2 % (0.0-1.5); O2(CT) 18.9 mL/dL (15.0-23.0); O2HB 93.4 % (95.0-99.0); PCO2(98.6) 39 mmHg (35-45); PO2(98.6) 73 mmHg (60-100); SAMPLE BLOOD; SAO2 97.2 % (95.0-100.0); THB 14.4 g/dL (11.5-17.4); pH(98.6) 7.34 (7.35-7.45)
[2019-04-21 10:14] LABS: MODALITY CANNULA
[2019-04-21 10:23] LABS: BASO# 0.01 X1000 (0.0-0.2); BASO% 0.1 % (0.0-0.8); EOS# 0.01 X1000 (0.0-0.7); EOS% 0.1 % (0.0-10.0); HEMATOCRIT 37.4 % (42.0-52.0); HEMOGLOBIN 11.9 g/dL (14.0-18.0); IMM GRAN# 0.05 X1000 (0.0-0.04); IMM GRAN% 0.4 % (0.0-0.5); LYMPH# 0.59 X1000 (1.2-3.4); LYMPH% 4.7 % (20.5-51.1); MCHC 31.8 g/dL (33-37); MCV 84.8 FL (81-99); MONO# 1.25 X1000 (0.11-0.59); MONO% 9.9 % (1.7-9.3); MPV 10.9 FL (7.4-10.4); NEUT# 10.73 X1000 (1.4-6.5); NEUT% 84.8 % (42.2-75.2); PLT 213 X1000 (130-400); RBC 4.41 XMIL (4.7-6.1); RDW 15.7 % (11.5-14.5); WBC 12.64 X1000 (4.8-10.8)
[2019-04-21 10:34] LABS: ALB/GLOB RATIO 1.6; ALBUMIN 4.2 g/dL (3.5-5.0); CALCIUM 9.4 mg/dL (8.8-10.2); CREATININE 2.8 mg/dL (0.7-1.2); POTASSIUM 4.8 mmol/L (3.5-5.1); TOTAL BILIRUBIN 0.62 mg/dL (0.20-1.00); TOTAL PROTEIN 6.9 g/dL (6.3-8.3)
[2019-04-21 10:59] LABS: INR 1.11; PROTIME 14.5 Seconds (11.0-16.0)
[2019-04-21 11:00] LABS: PTT 28.3 Seconds (22.3-41.8)
[2019-04-21 12:22] LABS: URINE SOURCE CATH
[2019-04-21 12:45] LABS: BILIRUBIN URINE NEGATIVE (NEGATIVE); BLOOD URINE TRACE (NEGATIVE); COLOR YELLOW; GLUCOSE URINE NEGATIVE (NEGATIVE); KETONE URINE TRACE mg/dL (NEGATIVE); LEUKOCYTES URINE NEGATIVE (NEGATIVE); NITRITE URINE NEGATIVE (NEGATIVE); PROTEIN URINE TRACE mg/dL (NEGATIVE); SP GRAVITY URINE 1.017; TURBIDITY URINE HAZY (CLEAR); UROBILINOGEN URINE NORMAL (NORMAL)
[2019-04-21 12:52] LABS: UR EPITHELIAL CELLS <10 /HPF (<10); URINE BACTERIA NEGATIVE /HPF; URINE RBC <10 /HPF (<10); URINE WBC <10 /HPF (<10)
--- NOTE | 2019-04-21 13:38 | HISTORY AND PHYSICAL ---
HISTORY OF PRESENT ILLNESS: He is followed by Dr. Kartik Crump. This is a 69-year-old who has history of renal transplant in 2013, congestive heart failure which is mainly diastolic, diabetes mellitus, hypertension, presented to the emergency room after complaining of shortness of breath progressing for the last 3 or 4 days. He is on BiPAP at the current time and breathing better. PAST MEDICAL HISTORY: 1. Renal transplant in 2013. 2. Hypertension. 3. Diabetes mellitus type 2. 4. Congestive heart failure. 5. Coronary artery disease status post coronary stent. 6. Right carotid artery stenosis. 7. Pulmonary hypertension. 8. Morbid obesity. PAST SURGICAL HISTORY: 1. Renal transplant in 2013. 2. Appendectomy. 3. Cardiac stent. SOCIAL HISTORY: He denies alcohol, tobacco or illicit drugs. He is and lives with his here in [place]. FAMILY HISTORY: Positive for hypertension and diabetes in his parents. Negative for coronary artery disease, stroke, or carotid disease. ALLERGIES: No known drug allergies. REVIEW OF SYSTEMS: General: No weight gain or loss. No fever or chills. HEENT: Unremarkable. No change in visual or hearing acuity. Respiratory: Increased work of breathing, increased dyspnea, increased dyspnea on exertion and increased orthopnea over the last 3 or 4 days. Cardiovascular: No chest pain or tachy palpitations. Gastrointestinal/genitourinary: No change in his bowels. No gross hematuria or dysuria. No constipation. Endocrinologic/hemologic: No significant history. He is on immunosuppressive drugs for his renal transplant. Musculoskeletal/Neurologic: No focal complaints. PHYSICAL EXAMINATION: VITAL SIGNS: In the emergency room, temperature 97.8 degrees, pulse 80, respirations 29, blood pressure 147/65. HEENT: Pupils are equal and round. Oral and nasal mucosa unremarkable. CVP less than 6 cm although difficult to tell. I think CVP is about 10 cm from the right atrium. No distended neck veins that I can appreciate. CARDIOVASCULAR: Regular rhythm and rate without murmur or S3. PMI nondisplaced. Carotid, radial and femoral pulses 2+ and symmetrical. ABDOMEN: Soft, nondistended. No hepatojugular reflux appreciated. ENDOCRINOLOGIC/HEMATOLOGIC: No significant history. SKIN: Without rashes. Oral and nasal mucosa without any lesions. NECK: Supple without adenopathy or thyromegaly. LABORATORY DATA: White count 99744, hematocrit is 37, platelet count is 213,000. Differential in his white blood cells looks good, plenty of 20 neutrophils. Sodium 129, potassium 4.9, chloride 92, BUN 47, creatinine 2.8. Transaminases normal. ProBNP was 2586. Albumin 4.2. Protime is 14.5, PTT is 28. Urinalysis unremarkable. Blood gas: pH is 7.34, pCO2 is 39, PO2 is 73, O2 saturation is 93%. DIAGNOSTIC DATA: 1. Chest x-ray. Mild increased interstitial markings, believed pulmonary edema. 2. He had a myocardial perfusion scan done in November 2018. Adequate response to Lexiscan, clinically negative for chest pain. Images demonstrated fixed, mildly diminished activity in the basal and mid inferior wall, corresponding preserved regional wall motion most consistent with diaphragm attenuation. No convincing scintigraphic evidence of inducible myocardial ischemia. Ejection fraction calculated at 49%. 3. An echocardiogram from July 2018. Technically difficult study. Mild sclerosis of trileaflet aortic valve demonstrated with normal aortic valve opening. Peak gradient was 13 mmHg. Tricuspid valve without evidence of structural abnormality, mild tricuspid regurgitation. Estimated PA pressure was 40 mmHg suggesting mild pulmonary hypertension. Aortic valve was normal size. Normal left ventricular chamber size and the estimated ejection fraction of 55% at that time. There was no pericardial effusion. ASSESSMENT AND PLAN: 1. Appears to have pulmonary venous hypertension. We will repeat an echo and look at his left ventricular function again and compare it to the one that was done in July. We will diurese him with some Lasix IV. His blood pressure and afterload look pretty reasonable. We will continue his home medicine medication. He is on Coreg 25 mg b.i.d., hydralazine I believe is 25 mg t.i.d. 2. Diabetes mellitus type 2. Check pattern sugars. Continue his insulin glargine 50 units subcutaneous at bedtime. 3. Renal transplant. He is on CellCept 250 mg p.o. b.i.d. and prednisone 0.5 mg daily and tacrolimus 0.5 mg p.o. b.i.d. He is also on nifedipine 90 mg p.o. q.12, so we will continue that. 4. Hypertension. 5. Hyperlipidemia. cc: Fede Amezcua MD
[2019-04-21] MEDS ORDERED: TYLENOL PO PRN (15:50)
[2019-04-21] MEDS ORDERED: ZOFRAN IV PRN (15:50)
[2019-04-21] MEDS ORDERED: LASIX IV SCH (15:50)
[2019-04-21] MEDS: APRESOLINE PO SCH ×2 (15:58→16:48)
--- NOTE | 2019-04-21 16:14 | EKG Report ---
Test Performed on : 04/21/2019 08:52:43 AM Test Reason : SOB Blood Pressure : / mmHG Vent. Rate : 086 BPM Atrial Rate : 086 BPM P-R Int : 222 ms QRS Dur : 162 ms QT Int : 422 ms P-R-T Axes : -08 -07 119 degrees QTc Int : 504 ms Sinus rhythm. with 1st degree AV block. Left bundle branch block Abnormal ECG When compared with ECG of 04-MAR-2019 07:22, premature ventricular complexes. are no longer present MI interval has increased Unconfirmed Result
[2019-04-21] MEDS: HUMALOG SUBQ SCH ×2 (16:27→21:34)
[2019-04-21] MEDS: ADALAT CC PO SCH (16:48)
[2019-04-21] MEDS: LASIX IV SCH (17:24)
[2019-04-21] MEDS ORDERED: LASIX ONE (17:30)
[2019-04-21] MEDS: CRESTOR PO SCH (21:26)
[2019-04-21] MEDS: COREG PO SCH (21:27)
[2019-04-21] MEDS: CELLCEPT PO SCH (21:27)
[2019-04-21] MEDS: PROGRAF PO SCH (21:27)
[2019-04-21] MEDS: NEURONTIN PO SCH (21:29)
[2019-04-21] MEDS: LANTUS INSULIN SUBQ SCH (21:40)
[2019-04-22] MEDS: ADALAT CC PO SCH ×2 (03:29→15:27)
[2019-04-22] MEDS: LASIX IV SCH ×2 (04:31→16:32)
[2019-04-22] MEDS: HUMALOG SUBQ SCH ×4 (06:12→20:58)
[2019-04-22 06:23] LABS: BASO# 0.01 X1000 (0.0-0.2); BASO% 0.1 % (0.0-0.8); EOS# 0.03 X1000 (0.0-0.7); EOS% 0.3 % (0.0-10.0); HEMATOCRIT 35.6 % (42.0-52.0); HEMOGLOBIN 10.9 g/dL (14.0-18.0); IMM GRAN# 0.03 X1000 (0.0-0.04); IMM GRAN% 0.3 % (0.0-0.5); LYMPH# 0.65 X1000 (1.2-3.4); LYMPH% 6.3 % (20.5-51.1); MCH 26.4 PG (27-31); MCHC 30.6 g/dL (33-37); MCV 86.2 FL (81-99); MONO# 1.11 X1000 (0.11-0.59); MONO% 10.8 % (1.7-9.3); MPV 11.3 FL (7.4-10.4); NEUT# 8.49 X1000 (1.4-6.5); NEUT% 82.2 % (42.2-75.2); PLT 197 X1000 (130-400); RBC 4.13 XMIL (4.7-6.1); RDW 15.8 % (11.5-14.5); WBC 10.32 X1000 (4.8-10.8)
[2019-04-22 06:46] LABS: CALCIUM 9.1 mg/dL (8.8-10.2); CREATININE 2.7 mg/dL (0.7-1.2); MAGNESIUM 2.2 mg/dL (1.5-2.7); POTASSIUM 3.5 mmol/L (3.5-5.1)
[2019-04-22 06:54] LABS: FREE T4 0.89 ng/dL (0.93-1.70); TSH 1.65 uIUmL (0.27-4.20)
[2019-04-22] MEDS: CELLCEPT PO SCH ×2 (08:07→20:08)
[2019-04-22] MEDS: COREG PO SCH ×2 (08:07→20:08)
[2019-04-22] MEDS: ASPIRIN PO SCH (08:07)
[2019-04-22] MEDS: NEURONTIN PO SCH ×2 (08:07→20:08)
[2019-04-22] MEDS: APRESOLINE PO SCH ×3 (08:07→20:08)
[2019-04-22] MEDS: PROGRAF PO SCH ×2 (08:09→20:08)
[2019-04-22] MEDS: PREDNISONE PO SCH (08:09)
[2019-04-22] MEDS ORDERED: VANCOMYCIN IV PER PHARMACY MISC SCH (11:15)
[2019-04-22] MEDS ORDERED: NS NEB INH SCH (11:30)
[2019-04-22] MEDS ORDERED: VANCOMYCIN 2,000 MG in NS 500 ML IV ONE (13:00)
[2019-04-22] MEDS: LEVAQUIN 500 MG/D5W 500 MG/100 ML IVPB IV SCH (13:06)
[2019-04-22] MEDS: XOPENEX NEB INH SCH ×3 (15:43→22:41)
[2019-04-22] MEDS: ATROVENT NEB INH SCH ×3 (15:44→22:41)
--- NOTE | 2019-04-22 16:25 | PROGRESS NOTE ---
DATE: 04/22/2019 SUBJECTIVE: Mr. Pineda says maybe he is breathing a little bit better, not a lot. He did start having decent urine output. OBJECTIVE: Vital signs: Remains afebrile. Temperature 98.9 degrees, pulse 80, respirations 22, blood pressure 149/68. Urine output was 1800 mL. Lungs: Clear. Decreased breath sounds both bases and some rales at the base bases. Neck: CVP appears to be about 10 cm water pressure from the angle of Yohannes. Abdomen: Soft. Skin: Warm and dry. ASSESSMENT AND PLAN: 1. He appears to have pulmonary venous hypertension. We will plan to repeat his echocardiogram to look at left ventricular function and continue diuresis. I did go up on his Lasix to 80 mg IV q.12. Continue his Coreg 25 mg b.i.d., hydralazine I believe is 25 mg t.i.d. His blood pressures look like they are doing well. 2. Myocardial perfusion scan done in November 2018 and echocardiogram showed ejection fraction around 50%. We will repeat his echocardiogram. 3. Diabetes mellitus type 2. Sugars under good control. 4. He is status post renal transplant. Continue his CellCept at 250 mg b.i.d., prednisone, I think he takes 0.5 mg, and tacrolimus 0.5 mg b.i.d. REVIEW OF ORDERS: He is on Lantus insulin 50 units at bedtime, Crestor 10 mg at bedtime, aspirin 81 mg a day, Coreg 25 mg b.i.d., Lasix we are given 80 mg IV every 12 hours, Neurontin 300 mg p.o. b.i.d., Apresoline 25 mg 3 times a day, Xopenex inhalation treatments, Levaquin 500 mg IV daily, nifedipine 90 mg p.o. q.12, prednisone, he is getting 0.5 mg p.o. daily, and Prograf 0.5. I need to double check his medications. cc: Fede Amezcua MD
[2019-04-22] MEDS ORDERED: NEXIUM PO ONE (18:13)
--- NOTE | 2019-04-22 18:17 | CONSULTATION ---
DATE OF CONSULTATION: 04/22/2019 REQUESTING PROVIDER: Dr. Fede Amezcua. REASON FOR CONSULTATION: Respiratory failure. HISTORY OF PRESENT ILLNESS: This is a 69-year-old male with a medical history of end- stage renal disease, diabetes mellitus type 2, coronary artery disease, peripheral vascular disease, pulmonary hypertension, hypertension, peripheral neuropathy, and dyslipidemia. He has a previous admission from 03/03/2019 to 03/13/2019 with aspiration pneumonia. The patient's reported that patient was totally fine after discharge home till last Tuesday. He received a pneumonia shot, after that he started declining with worsening shortness of breath and edema. Initial chest x-ray revealed mild increased interstitial markings believed to be pulmonary edema. Blood work showed leukocytosis with white blood cell 12.64 with elevated neutrophil percentage, hyponatremia, hypochloremia, and elevated proBNP of 2694. He has been admitted to the [facility] for further evaluation and management. The patient currently is lying in bed with moderate respiratory distress. He is on a Venturi mask with FiO2 50%. Oxygen saturation stayed in the lower 90s. His respiratory rate is up to 30s. He was just off BiPAP for awhile as he could not tolerate it. The patient's is at the bedside. The patient appears a little bit lethargic, but he is alert and oriented x3. He denies fever, chills, nausea, vomiting, bowel habit change, urination discomfort, chest pain, palpitation, but his at the bedside reported he had one episode of vomiting this morning. He does have chronic pedal edema, which apparently has been worse in the last several days. He reports no cough, wheezing, or significant weight gain recently. PAST MEDICAL AND SURGICAL HISTORY: 1. End-stage renal disease, status post renal transplant in [facility] in 2012. 2. Diabetes mellitus type 2. 3. Coronary artery disease status post stent placement. 4. Peripheral vascular disease. 5. Pulmonary hypertension, mild. 6. Hypertension. 7. History of lacunar infarct to the right thalamus. 8. History of congestive heart failure with normal ejection fraction. Has been on Lasix daily at home since discharged on 03/13/2019. The patient's reported that the daily dosage of Lasix is based on the patient's weight change. 9. Peripheral neuropathy. 10. Dyslipidemia. 11. Right carotid artery stenosis. 12. Morbid obesity. Current BMI 37.5. 13. Status post open appendectomy. 14. Recent admission from 03/03/2019 to 03/13/2019 with aspiration pneumonia. SOCIAL HISTORY: The patient is and lives at home with his family. He started smoking at age of 15 and quit smoking in 1991, but the quantity of daily tobacco use is unknown. He used to drink and has been quit since 1987. He has no illicit drug use. FAMILY HISTORY: Positive for kidney disease and heart disease. ALLERGIES: Cefepime. REVIEW OF SYSTEMS: A 10-point review of systems was conducted and the pertinent is listed within the HPI, otherwise noncontributory. PHYSICAL EXAMINATION: Vital Signs: Temperature 99.1 degrees, blood pressure 142/66, pulse 83, respiratory rate 31, oxygen saturation 94% on Venturi mask with FiO2 50%. General: Morbidly obese, lying in bed with some moderate level of respiratory distress. The patient's is at the bedside. HEENT: Atraumatic, normocephalic. Trachea midline. Mucosa pink and slightly dry. Respiratory: Level - increased work of breathing but no accessory muscle use. Symmetrical excursion. Auscultation revealed diminished breathing sounds bilaterally with prolonged expiratory phase and expiratory wheezing bilaterally. Cardiovascular: Regular rate and rhythm. Gastrointestinal: Soft. Distended. Normoactive bowel sounds in all four quadrants. Nontender. No rebound tenderness. Extremities: Bilateral lower extremity pitting edema 1+. No cyanosis. No clubbing. Neurologic: Alert oriented x3. Speech fluent. Follows commands. LAB DATA: White blood cells 10.32, hemoglobin 10.9, hematocrit 35.6, platelet 197,000. Sodium 136, potassium 3.5, chloride 93, carbon dioxide 24, BUN 53, creatinine 2.7, glucose 175. ProBNP 3431. ASSESSMENT: This is a 69-year-old male with a medical history of end- stage renal disease, diabetes mellitus type 2, coronary artery disease, peripheral vascular disease, mild pulmonary hypertension, hypertension, congestive heart failure, peripheral neuropathy, dyslipidemia, right carotid artery stenosis, and morbid obesity with recent admission from 03/03/2019 to 03/13/2019 with aspiration pneumonia. He has been admitted since yesterday with congestive heart failure exacerbation. 1. Acute hypoxic respiratory failure. 2. Congestive heart failure exacerbation. 3. Possible pneumonia. 4. Shortness of breath. PLAN: 1. Continue supplemental oxygen as needed. Continue BiPAP as needed. 2. Continue diuretics as needed; Start antibiotic therapy with Levaquin and vancomycin and breathing treatment. 3. Follow up with the blood cultures, sputum culture, ABG and chest x-ray if needed. 4. Dr. Sandra, the professor of geology, is on board. 5. Further recommendations pending hospital course. Thank you for the courtesy of this consult. Dictated by ISAAK Oglesby for Alba Baldwin MD cc: ISAAK Oglesby MD [facility]
[2019-04-22] MEDS: ZOFRAN IV PRN (18:26)
[2019-04-22] MEDS: LANTUS INSULIN SUBQ SCH (20:07)
[2019-04-22] MEDS: CRESTOR PO SCH (20:07)
[2019-04-23] MEDS: ADALAT CC PO SCH ×2 (02:59→15:35)
[2019-04-23] MEDS: ATROVENT NEB INH SCH ×4 (03:20→21:13)
[2019-04-23] MEDS: LASIX IV SCH ×2 (04:51→18:04)
[2019-04-23] MEDS: HUMALOG SUBQ SCH ×4 (06:23→22:10)
[2019-04-23] MEDS: XOPENEX NEB INH SCH ×3 (09:11→21:13)
[2019-04-23] MEDS: COREG PO SCH ×2 (09:18→22:10)
[2019-04-23] MEDS: CELLCEPT PO SCH ×2 (09:18→22:10)
[2019-04-23] MEDS: APRESOLINE PO SCH ×3 (09:18→22:10)
[2019-04-23] MEDS: NEURONTIN PO SCH ×2 (09:18→22:28)
[2019-04-23] MEDS: NEXIUM PO SCH (09:18)
[2019-04-23] MEDS: ASPIRIN PO SCH (09:18)
[2019-04-23] MEDS: PROGRAF PO SCH ×2 (09:18→22:10)
[2019-04-23] MEDS: PREDNISONE PO SCH (09:19)
[2019-04-23] MEDS: LEVAQUIN 500 MG/D5W 500 MG/100 ML IVPB IV SCH (11:58)
--- NOTE | 2019-04-23 15:07 | ECHO REPORT ---
ORDER DATE: 04/21/2019 MEASUREMENTS: Left ventricular internal diameter in diastole 5.3, aortic root 3.4, left atrium 4.4. SUMMARY: 1. Technically difficult study due to limited acoustic window quality. Intravenous echo contrast agent Optison was utilized to enhance endocardial definition. 2. The aortic valve is trileaflet and opens normally on 2-dimensional images. The peak gradient across the aortic valve is less than 10 mmHg. Moderate mitral annular calcification is demonstrated. Tricuspid valve is without evidence of structural abnormality, with trace tricuspid regurgitation. Pulmonic valve is not well demonstrated. The aortic root is normal in size. 3. Normal left ventricular chamber size with lfjm-pw-xvmjruth concentric left hypertrophy suggested. ASSESSMENT: 1. Left ventricular systolic function is challenging given limitations of the study. The estimated left ventricular ejection fraction appears to be at least 50%. 2. There is mild hypokinesis of the ydx-ux-urvklf anteroseptal region. No other wall motion abnormalities can be appreciated. 3. The left atrium is jbdi-bw-nizkpufjvu enlarged. 4. The right atrium and right ventricle are grossly normal in size. 5. No pericardial effusion. 6. Inferior vena cava not well demonstrated. CONCLUSIONS: 1. Very difficult study for interpretation. 2. Moderate mitral annular calcification. 3. Qwkm-ls-insdhhdc concentric left ventricular hypertrophy with estimated left ventricular ejection fraction of at least 50%. 4. Hypokinesis of led-ak-erecjp anteroseptal region suggested. 5. Rywi-me-qvbhluon left atrial enlargement. 6. If clinically indicated, will consider MUGA scan/radionuclide ventriculography to more accurately assess left ventricular systolic function. cc: MD Bere Perdomo CRNP
[2019-04-23] MEDS: ZAROXOLYN PO SCH (15:34)
--- NOTE | 2019-04-23 17:46 | PROGRESS NOTE ---
DATE: 04/23/2019 SUBJECTIVE: Mr. Pineda is breathing maybe a little better. He is sitting up in a chair. OBJECTIVE: Vital signs: His temperature remains afebrile, temperature 98.4 degrees, pulse 75, respirations 27, blood pressure 122/56. HEENT: Pupils are equal and round. Lungs: Clear in all lung good. Cardiovascular: Regular rhythm and rate without murmur or S3. Urine output is 1400 mL. Blood sugar 179, 152, 209. ASSESSMENT AND PLAN: 1. Pulmonary venous hypertension. His left ventricular function we wanted to look at with echocardiogram, and that was obtained 03/22/2019. Very difficult study, moderate mitral annular calcification, mild to moderate concentric left ventricular hypertrophy, estimated left ventricular ejection fraction was 50%. Hypokinesis in the mid apical and anterior septal region suggested mild to moderate left atrial enlargement. 2. Diabetes mellitus type 2. Sugars look under good control. 3. He is status post renal transplant. He is on CellCept. Dr. Sandra will follow. He is getting Prograf 0.5 mg b.i.d. and prednisone 0.[address] Baldwin has followed, is evaluated, and he feels like acute hypoxemic respiratory failure, congestive heart failure exacerbation and possible pneumonia so continue his BiPAP as needed. Continue diuretics and antibiotic therapy of Levaquin and vancomycin. Checking blood cultures. On review of his orders, I do not see any change at this point. On review of the lab, blood sugars have been doing good. Sugars were 153, 165, 209 cc: Fede Amezcua MD
[2019-04-23] MEDS: CRESTOR PO SCH (22:10)
[2019-04-23] MEDS: LANTUS INSULIN SUBQ SCH (22:11)
--- NOTE | 2019-04-23 23:45 | PULMONOLOGY PROGRESS NOTE ---
DATE: 04/23/2019 SUBJECTIVE: The patient is awake, alert, and conversant. He is without new complaints. OBJECTIVE: Vital Signs: The patient has been afebrile for the last 24 hours. BP 136/58, heart rate 79, respiratory rate 26, oxygen saturation 92% on Venturi mask. HEENT: Pupils are equal and reactive. Oropharynx appears clear. Neck: Supple. Chest: Reveals decreased breath sounds in both lung bases. Cardiac: S1-S2. Abdomen: Obese and soft. Extremities: Reveal edema in the upper greater than the lower extremities. IMPRESSION: A 69-year-old with total body fluid overload, pulmonary edema, acute hypoxemic respiratory failure. RECOMMENDATIONS: 1. Continue oxygen for hypoxemic respiratory failure. 2. Agree with adding metolazone to his current diuretic regimen. 3. Two-view chest x-ray tomorrow. 4. Continue antibiotics pending clinical improvement. cc: Theron Bowman MD
[2019-04-24] MEDS: ATROVENT NEB INH SCH ×4 (03:05→22:39)
[2019-04-24] MEDS: ADALAT CC PO SCH ×3 (05:27→15:38)
[2019-04-24] MEDS: LASIX IV SCH ×2 (05:27→17:53)
[2019-04-24 07:07] LABS: HEMATOCRIT 35.5 % (42.0-52.0); HEMOGLOBIN 11.1 g/dL (14.0-18.0); MCH 27.2 PG (27-31); MCHC 31.3 g/dL (33-37); MPV 11.4 FL (7.4-10.4); RBC 4.08 XMIL (4.7-6.1); RDW 15.3 % (11.5-14.5); WBC 10.39 X1000 (4.8-10.8)
[2019-04-24 07:11] LABS: ALBUMIN 3.5 g/dL (3.5-5.0); CREATININE 3.4 mg/dL (0.7-1.2); PHOSPHORUS 5.7 mg/dL (2.7-4.5); POTASSIUM 5.6 mmol/L (3.5-5.1)
[2019-04-24] MEDS: HUMALOG SUBQ SCH ×4 (07:34→21:00)
[2019-04-24] MEDS: NEXIUM PO SCH (08:37)
[2019-04-24] MEDS: NEURONTIN PO SCH ×2 (08:37→21:00)
[2019-04-24] MEDS: COREG PO SCH ×2 (08:37→21:00)
[2019-04-24] MEDS: APRESOLINE PO SCH ×3 (08:37→21:00)
[2019-04-24] MEDS: ZAROXOLYN PO SCH (08:37)
[2019-04-24] MEDS: ASPIRIN PO SCH (08:37)
[2019-04-24] MEDS: CELLCEPT PO SCH ×2 (08:37→21:00)
[2019-04-24] MEDS: PREDNISONE PO SCH (08:37)
[2019-04-24] MEDS: PROGRAF PO SCH ×3 (08:38→21:20)
[2019-04-24] MEDS: XOPENEX NEB INH SCH ×3 (10:14→22:39)
--- NOTE | 2019-04-24 10:57 | NEPHROLOGY PROGRESS NOTE ---
DATE: 04/24/2019 SUBJECTIVE: He is still complaining of cough and shortness of breath. OBJECTIVE: Vital Signs: Blood pressure 122/56, heart rate 75, respirations 25, afebrile. General: No acute distress. Skin is warm and dry. Conjunctivae are pink. Neck veins are not appreciated because of body habitus. Cardiovascular: Heart is regular, distant. Respiratory: Lungs are equal. Decreased breath sounds. Abdomen: Soft. Diminished bowel sounds. Nontender. Extremities: 2+ edema limited below the knee. IMPRESSION: Chronic kidney disease in the context of history of renal transplant. Baseline creatinine 1.5. Appears mildly volume overloaded but improved. I will add Zaroxolyn and observe his volume status over the next 24 hours. His last chest x-ray was on the at which time he had probable pulmonary edema. Recorded fluid balance is net negative about 1.5 L. No reason to suspect that he has any acute changes with regard to his kidney. Rise in creatinine more likely prerenal in origin. cc: Jhonny Sandra MD
--- NOTE | 2019-04-24 11:19 | Extremity Venous Study ---
PROCEDURE NAME: Venous U/S Left Arm - 04/23/2019 STUDY PERFORMED: Left upper extremity venous study. COMPARISON: Previous comparison from 03/06/2019. REQUESTING PHYSICIAN: Dr. Amezcua SALES DRIVER: Terri INDICATIONS: Swelling. EQUIPMENT: [employer] E9 ultrasound system with a 9 L-D transducer. FINDINGS: Image of the left lower extremity venous system comparison with lower extremity venous systems were obtained in both sagittal and transverse planes. Doppler was used to evaluate veins for spontaneity, phasicity, respiratory excursion, and digital augmentation. RESULTS: Normal venous compression. Normal venous flow. No obvious superficial or deep venous thrombosis noted. INTERPRETATION: Essentially normal left upper extremity venous study. cc: MD Fede Esteban MD
[2019-04-24] MEDS: LEVAQUIN 500 MG/D5W 500 MG/100 ML IVPB IV SCH (11:23)
[2019-04-24] MEDS ORDERED: VANCOMYCIN 1,700 MG in NS 250 ML IV SCH (13:00)
[2019-04-24 14:35] LABS: ALLEN TEST YES; BE -5.7 mmoll (-3.0-3.0); BLOOD TYPE ARTERIAL; HCO3-(ACT) 20.2 mmoll (20.0-26.0); METHB 0.9 % (0.0-1.5); O2(CT) 12.5 mL/dL (15.0-23.0); PO2(98.6) 51 mmHg (60-100); SAMPLE BLOOD; THB 10.5 g/dL (11.5-17.4)
[2019-04-24 14:41] LABS: MODALITY NRB; O2HB 84.4 % (95.0-99.0); PCO2(98.6) 62 mmHg (35-45); pH(98.6) 7.18 (7.35-7.45)
--- NOTE | 2019-04-24 14:42 | Diag Imaging Result Doc PS360 ---
CHEST-2 VIEWS - 04/24/2019 INDICATION: abnormal exam COMPARISON: 04/21/2019 FINDINGS: Stable significant cardiomegaly and pulmonary vascular congestion. There is slight worsening in the hazy interstitial infiltrates bilaterally compatible with pulmonary edema. There are small bilateral pleural effusions. IMPRESSION: Congestive heart failure. Electronically signed by Maynor Navarro 04/24/2019 2:39 PM
[2019-04-24] MEDS ORDERED: LASIX IV ONE (15:06)
[2019-04-24] MEDS ORDERED: SODIUM BICARBONATE 8.4% IV PUSH ONE (15:10)
[2019-04-24] MEDS ORDERED: LASIX 200 MG in NS 25 ML IV ONE (15:30)
[2019-04-24] MEDS: SOLU-CORTEF IV SCH (15:38)
[2019-04-24] MEDS ORDERED: BACTRIM IV SCH (15:45)
[2019-04-24] MEDS ORDERED: CALCIUM GLUCONATE 2 GM in NS 100 ML IV ONE (16:01)
[2019-04-24] MEDS ORDERED: ALBUTEROL 0.5% INH CONC FOR HYPERKALEMIA INH ONE (16:02)
--- NOTE | 2019-04-24 16:24 | PROGRESS NOTE ---
DATE: 04/24/2019 SUBJECTIVE: This morning, Mr. Pineda was quite obtunded. and the son were both at the bedside at the time of the encounter. OBJECTIVELY: Vital Signs: Blood pressure is 114/60, pulse of 90. The patient went up to 94 on the BiPAP. Pulse is 59, respiration 26, temperature 97.6 degrees. General: Mr. Pineda is 69 years old. Morbidly obese, gentleman. His BMI of 37.0. He is in bed. He currently has a BiPAP on and seems to be synchronizing well. HEENT: Mucosa is pink and moist. Anicteric. Acyanotic. Neck: Supple. Chest: Air entry is bilaterally reduced. There is some crackles in the posterior lung good. Cardiovascular: Regular rate and rhythm. No murmurs, no rubs, no gallops. Abdomen: Soft, distended. Bowel sounds present. Extremities: About 2+ pedal edema in both lower extremity and upper extremities. LABORATORY DATA: Hemoglobin is 11.1. ABG this morning shows pH of 7.18, pCO2 of 62, PO2 of 51. Chemistry is also reviewed. Potassium was 5.6, bicarbonate was 15. Urine output was 1050. The patient is currently negative balance of 793. A chest x-ray this morning shows congestive heart failure. ASSESSMENT: 1. Acute on chronic hypercarbic respiratory failure. 2. Acute hypoxemic respiratory failure. 3. Fluid overload presumably combination of renal failure and diastolic heart failure. 4. Status post renal transplant. 5. Chronic immunosuppressive therapy. 6. Pulmonary edema most likely from congestive heart failure, however, superimposed pneumonia cannot be entirely ruled out. Mr. Pineda has been on chronic immunosuppressive therapy and atypical pneumonias like Pneumocystis jiroveci pneumonia will need to be covered. He is currently on levofloxacin and vancomycin. We will discontinue the vancomycin and switch it to Zyvox for methicillin-resistant Staphylococcus aureus coverage. We will continue with the Levaquin and I have added Bactrim for Pneumocystis jiroveci pneumonia for now. 7. Mixed makes acidosis (respiratory acidosis and high anion gap metabolic acidosis). The patient is getting bicarbonate pushes and is on BiPAP for the respiratory component. PLAN: In general, I think Mr. Pineda is critically sick. His sensorium seems to be gradually declining. His labs this morning are significant for worsening renal function, severe high gap metabolic acidosis. ABGs are showing a respiratory acidosis as well, which makes him even more critical. He is currently on the BiPAP. We are going to transfer him from the [facility] to ICU for very close monitoring. I have discussed the critical nature of Mr. Pineda with the family. I have also informed them that if the repeat ABG does not show any improvement in the CO2, his next stage will be to go on the mechanical ventilation. The said they do have a living will, however, she is not sure what her their decision is, so they will bring the will and then let us know if intubation will be something that they will be interested if he needs it. When I discussed about cardiac resuscitation as well including possible cardiac chest compression and shock, they were not sure what to tell me either. cc: Judah Ponce MD
[2019-04-24] MEDS: ZYVOX 600 MG/D5W 600 MG/300 ML IVPB IV SCH (16:25)
--- NOTE | 2019-04-24 17:24 | PULMONOLOGY PROGRESS NOTE ---
DATE: 04/24/2019 SUBJECTIVE: The patient is awake and alert and sitting in the bedside chair. He reports he has had better days than today. He does have shortness of breath with any movement. OBJECTIVE: The patient had approximately 1 L urine output yesterday. Vital signs: BP 114/60, heart rate 65, respiratory rate 26, oxygen saturation 90% on Venturi mask. HEENT: Pupils are equal and reactive. Oropharynx appears clear. Neck: Supple. Chest: Reveals crackles bilaterally. Cardiac exam: Distant heart sounds. Normal S1. Normal S2. Abdomen: Obese and soft. Extremities: Reveal 2+ edema in the arms and lower extremities. LABORATORIES: Chest x-ray reveals cardiomegaly with vascular congestion and small bilateral effusions. Arterial blood gas reveals a pH 7.18, pCO2 of 62, pO2 of 51. White blood count 10.39, hemoglobin 11.1, platelet count 198,000. Sodium 127, potassium 5.6, chloride 90, bicarbonate 15, BUN 70, creatinine 3.4. IMPRESSIONS: A 69-year-old with. 1. Total body fluid overload. 2. Pulmonary edema. 3. Acute hypoxemic respiratory failure. 4. Acute hypercapnic respiratory failure. 5. Status post renal transplantation. RECOMMENDATIONS: 1. Agree with initiation of BiPAP. We will make adjustments on the inspiratory pressure. 2. Initiate stress-dosed steroids. 3. Additional Lasix dose this afternoon. 4. Adjust Levaquin for renal failure. 5. Anticipate the need for transfer to the ICU if patient does not have clinical improvement over the next 24 hours. He may require intubation and mechanical ventilation. cc: Theron Bowman MD
[2019-04-24] MEDS: D5W IV SCH (17:52)
[2019-04-24] MEDS: SEPTRA IV SCH (17:52)
[2019-04-24 18:11] LABS: ALLEN TEST YES; BE -5.7 mmoll (-3.0-3.0); BLOOD TYPE ARTERIAL; HCO3-(ACT) 20.4 mmoll (20.0-26.0); O2(CT) 19.7 mL/dL (15.0-23.0); PCO2(98.6) 45 mmHg (35-45); PO2(98.6) 75 mmHg (60-100); SAMPLE BLOOD; THB 14.9 g/dL (11.5-17.4); pH(98.6) 7.28 (7.35-7.45)
[2019-04-24 18:12] LABS: MODALITY BI PAP
[2019-04-24 19:21] LABS: ALBUMIN 3.3 g/dL (3.5-5.0); CALCIUM 9.1 mg/dL (8.8-10.2); PHOSPHORUS 6.3 mg/dL (2.7-4.5)
[2019-04-24] MEDS: SODIUM BICARBONATE 8.4% IV PUSH SCH (19:37)
[2019-04-24] MEDS: CRESTOR PO SCH (21:00)
[2019-04-24] MEDS: LANTUS INSULIN SUBQ SCH (21:01)
[2019-04-24] MEDS: LOKELMA POWDER PACKET PO SCH (23:03)
[2019-04-25] MEDS: SEPTRA IV SCH ×3 (02:35→18:05)
[2019-04-25] MEDS: SODIUM BICARBONATE 8.4% IV PUSH SCH (02:35)
[2019-04-25] MEDS: D5W IV SCH ×3 (02:35→18:05)
[2019-04-25] MEDS: ZYVOX 600 MG/D5W 600 MG/300 ML IVPB IV SCH ×2 (02:35→15:26)
[2019-04-25] MEDS: SOLU-CORTEF IV SCH ×2 (02:35→15:26)
[2019-04-25] MEDS: ATROVENT NEB INH SCH ×4 (03:45→22:58)
[2019-04-25] MEDS: ADALAT CC PO SCH (04:12)
[2019-04-25 04:31] LABS: ALLEN TEST YES; BE -1.6 mmoll (-3.0-3.0); BLOOD TYPE ARTERIAL; HCO3-(ACT) 23.7 mmoll (20.0-26.0); METHB 1.1 % (0.0-1.5); MODALITY BI PAP; O2(CT) 13.7 mL/dL (15.0-23.0); O2HB 96.3 % (95.0-99.0); PCO2(98.6) 37 mmHg (35-45); PO2(98.6) 90 mmHg (60-100); SAMPLE BLOOD
[2019-04-25] MEDS: LASIX IV SCH ×2 (04:56→17:09)
[2019-04-25] MEDS: HUMALOG SUBQ SCH ×5 (06:21→20:37)
--- NOTE | 2019-04-25 07:25 | Diag Imaging Result Doc PS360 ---
CHEST-PORTABLE - 04/25/2019 INDICATION: respiratory failure COMPARISON: 04/24/2019 FINDINGS: Stable severely low lung volumes. Stable cardiomegaly and pulmonary vascular congestion. Stable hazy bibasilar infiltrates, nonspecific. IMPRESSION: No change from prior. Electronically signed by Maynor Navarro 04/25/2019 7:23 AM
[2019-04-25 07:50] LABS: ALBUMIN 2.7 g/dL (3.5-5.0); CALCIUM 8.9 mg/dL (8.8-10.2); CREATININE 4.3 mg/dL (0.7-1.2); PHOSPHORUS 6.6 mg/dL (2.7-4.5); POTASSIUM 4.8 mmol/L (3.5-5.1)
[2019-04-25 08:09] LABS: HEMATOCRIT 29.9 % (42.0-52.0); HEMOGLOBIN 9.8 g/dL (14.0-18.0); MCH 26.6 PG (27-31); MCHC 32.8 g/dL (33-37); MCV 81.3 FL (81-99); MPV 11.6 FL (7.4-10.4); RBC 3.68 XMIL (4.7-6.1); RDW 14.5 % (11.5-14.5); WBC 5.75 X1000 (4.8-10.8)
[2019-04-25] MEDS: NEXIUM PO SCH (08:37)
[2019-04-25] MEDS: NEURONTIN PO SCH (08:38)
[2019-04-25] MEDS: PROGRAF PO SCH ×2 (08:38→20:38)
[2019-04-25] MEDS: ZAROXOLYN PO SCH (08:38)
[2019-04-25] MEDS: COREG PO SCH (08:39)
[2019-04-25] MEDS: ASPIRIN PO SCH (08:39)
[2019-04-25] MEDS: APRESOLINE PO SCH (08:39)
[2019-04-25] MEDS: LOKELMA POWDER PACKET PO SCH (08:46)
[2019-04-25] MEDS: CELLCEPT PO SCH ×2 (09:22→20:37)
[2019-04-25] MEDS: XOPENEX NEB INH SCH ×3 (09:26→22:58)
[2019-04-25 09:49] LABS: ACETAMINOPHEN < 1.2 ug/mL (10-30); SALICYLATES < 3.00 mg/dL (3-10)
[2019-04-25] MEDS ORDERED: SODIUM BICARBONATE PO ONE (13:24)
--- NOTE | 2019-04-25 14:05 | PROGRESS NOTE ---
DATE: 04/25/2019 SUBJECTIVE: This morning, Mr. Pineda referred to be doing a little better. He was more awake and more responsive to me than yesterday. No family member at the bedside. OBJECTIVE: Vital Signs: Blood pressure is 90/49, pulse of 58, respirations 17, temperature is 97.7 degrees. General: Mr. Pineda is a 69-year-old gentleman. He is in bed. Currently on the BiPAP. He does not seem to be in any obvious cardiopulmonary distress. HEENT: Mucosa is pink and moist. Anicteric. Acyanotic. Neck: Supple. There is positive JVD. Respiratory: Air entry was bilaterally reduced. Some crackles in the posterior lung good were heard. Cardiovascular: Regular rate and rhythm. No murmurs, no rubs, no gallops. GI: Abdomen is soft. It is remarkably distended. Bowel sounds present. No hepatosplenomegaly could be felt. There is edema on the lateral aspect of the abdominal wall. There is edema on the upper thighs as well. Extremities: There is about 2+ pedal edema. [employer] CONSULTANT: The patient is slightly lethargic, but is more easily arousable today than yesterday, and he will sustain adequate amount of conversation before he goes back to sleep. There was questionable positive asterixis. The patient I's and O's show urine output was 1050. The patient is currently negative balance of about 793. LABORATORY DATA: WBC is 5.75, hemoglobin is 9.8, platelet count of 186,000. Chemistry is reviewed. Sodium is 125, potassium is 4.8, chloride 84, bicarb is 17, the patient's creatinine is up to 4.3, glucose was about 325. All of these have been addressed. CURRENT MEDICATIONS: Include: 1. Lasix 80 mg IV every 12 hours. 2. Nexium 40 mg p.o. daily. 3. Aspirin 81 mg p.o. daily. 4. Solu-Cortef 25 mg IV every 12 hours. 5. Gabapentin has been discontinued. 6. Insulin glargine 50 units at bedtime. 7. Sliding scale insulin. 8. Levaquin 250 every 24 hours. 9. Zyvox. 10. CellCept 250 p.o. b.i.d. 11. Bicarbonate has been started this morning in p.o. form. ASSESSMENT: 1. Acute on chronic hypercarbic respiratory failure with acute hypoxemic respiratory failure. The patient continues to be on the bilevel positive airway pressure, seems to be synchronizing well. We are going to continue to monitor. 2. Fluid overload, presumably a combination of renal failure and diastolic heart failure. The patient is on diuretic challenge. He seems to be making some urine this morning; however, he seems to be oliguric. 3. Status post renal transplant, on chronic immunosuppressive therapy. Noted. 4. Pulmonary edema, presumably from fluid overload. However, superimposed pneumonia could not be entirely ruled out. The patient is on antimicrobial therapy. 5. Mixed acidosis. It looks like the respiratory component has significantly improved with the bilevel positive airway pressure therapy. The patient continues to have high anion gap metabolic acidosis, likely related to the acute renal failure. So far, his acetone is negative, lactate is normal, and salicylate as well as Tylenol levels are unremarkable. The patient has been started on oral bicarbonate supplements. 6. Uncontrolled diabetes mellitus. Will continue with the insulin regimen, and up-titrate it accordingly. In general, Mr. Pineda continues to be fluid overload despite having been challenged with extremely high dose of Lasix yesterday. He is currently on twice daily Lasix. We will follow up with further recommendations from Nephrology. Mr. Pineda is status post renal transplant patient. He seems to have asterixis, and he is having some altered mentation. His creatinine has gone up to 4.3 this morning, and his BUN is 81. I am concerned that Mr. Pineda might need renal replacement therapy in the next couple of days if he does not improve. We are going to be doing urine studies to help determine the etiology of his worsening renal functions. cc: Judah Ponce MD [facility]
[2019-04-25 14:58] LABS: UR CREAT RANDOM 113.5 mg/dL (14-26)
[2019-04-25] MEDS ORDERED: ALBUMIN 25% IV ONE (15:54)
[2019-04-25] MEDS: LEVAQUIN 250 MG/D5W 250 MG/50 ML IVPB IV SCH (17:10)
--- NOTE | 2019-04-25 18:56 | PULMONOLOGY PROGRESS NOTE ---
DATE: 04/25/2019 SUBJECTIVE: The patient is currently off BiPAP. He reports he feels a little better than yesterday. OBJECTIVE: Vital Signs: The patient has been afebrile for the last 24 hours. Intake 1990 mL, output 435 mL. Blood pressure 98/51, heart rate 67, respiratory rate 23, oxygen saturation 92% on 50% Venturi mask. HEENT: Pupils are equal and reactive. Oropharynx appears clear. Neck: Supple. Chest: Reveals shallow breath sounds bilaterally with prolonged expiratory phase and faint basilar crackles. Cardiac exam: Distant heart sounds. Normal S1, normal S2. Abdomen: Obese and soft. Extremities: Reveal upper and lower extremity edema. LABORATORIES: Arterial blood gas pH 7.40, pCO2 of 37, PO2 of 90 on 50% face mask. Sodium 125, potassium 4.8, chloride 84, bicarbonate 17, anion gap 24, BUN 81, creatinine 4.3. White blood count 5.75, hemoglobin 9.8, platelet count 186,000. Chest x-ray reveals cardiomegaly, mild vascular congestion/pulmonary edema, bibasilar infiltrates right greater than the left. IMPRESSION: A 69-year-old with 1. Hypoxemic respiratory failure. 2. Hypercapnic respiratory failure with improvement on BiPAP. 3. Pulmonary edema. 4. Total body fluid overload with marginal blood pressure. 5. Acute renal failure. 6. Status post renal transplantation. DISCUSSION: 69-year-old with problems outlined above. He has had some marginal improvement in his acidosis and CO2 retention but remains critically ill with worsening of renal function. He remains on broad-spectrum antibiotics. His code status remains full at this juncture. He had limited improvement in his status after his last hospitalization. PLAN: 1. Continue BiPAP at bedtime and p.r.n. 2. Continue stress dose steroids. 3. Agree with Dr. Ponce. With albumin and fluid associated with antibiotics and worsening BUN and creatinine he will likely require renal replacement therapy. 4. Continue ICU monitoring. He is at high risk for further decompensation. TIME SPENT: In critical care management 30+ minutes. cc: Theron Bowman MD
[2019-04-25] MEDS: CRESTOR PO SCH (20:37)
[2019-04-25] MEDS: LANTUS INSULIN SUBQ SCH (20:38)
[2019-04-26] MEDS: D5W IV SCH ×3 (01:41→19:06)
[2019-04-26] MEDS: SEPTRA IV SCH ×3 (01:41→19:06)
[2019-04-26] MEDS: ATROVENT NEB INH SCH ×4 (03:22→22:42)
[2019-04-26] MEDS: SOLU-CORTEF IV SCH ×3 (03:24→19:12)
[2019-04-26] MEDS: ZYVOX 600 MG/D5W 600 MG/300 ML IVPB IV SCH ×2 (03:24→17:14)
[2019-04-26] MEDS ORDERED: CHLORASEPTIC SPRAY MT PRN (03:32)
[2019-04-26 04:31] LABS: ALLEN TEST YES; BE -4.4 mmoll (-3.0-3.0); BLOOD TYPE ARTERIAL; HCO3-(ACT) 21.5 mmoll (20.0-26.0); METHB 1.8 % (0.0-1.5); O2(CT) 12.7 mL/dL (15.0-23.0); O2HB 94.4 % (95.0-99.0); PCO2(98.6) 39 mmHg (35-45); PO2(98.6) 78 mmHg (60-100); SAMPLE BLOOD; SAO2 97.6 % (95.0-100.0); THB 9.5 g/dL (11.5-17.4); pH(98.6) 7.34 (7.35-7.45)
[2019-04-26 04:41] LABS: MODALITY BI PAP
[2019-04-26] MEDS: LASIX IV SCH ×2 (04:48→19:11)
[2019-04-26] MEDS: ZOFRAN IV PRN ×4 (05:43→22:29)
[2019-04-26] MEDS: HUMALOG SUBQ SCH ×4 (06:00→22:11)
[2019-04-26 06:49] LABS: CALCIUM 8.1 mg/dL (8.8-10.2); PHOSPHORUS 8.4 mg/dL (2.7-4.5)
--- NOTE | 2019-04-26 07:07 | Diag Imaging Result Doc PS360 ---
CHEST-PORTABLE - 04/26/2019 INDICATION: respiratory failure COMPARISON: 04/25/2019 FINDINGS: Lung volumes are improved but still low. Stable cardiomegaly and pulmonary vascular congestion. Stable patchy infiltrates in the right upper lobe and midlung. IMPRESSION: Cardiomegaly and pulmonary vascular congestion. Multilobar infiltrates compatible with pneumonia or edema in the right lung. Electronically signed by Maynor Navarro 04/26/2019 7:05 AM
[2019-04-26] MEDS ORDERED: HEPARIN IV PRN (07:43)
[2019-04-26] MEDS ORDERED: NS 2,000 ML MISC PRN (07:43)
[2019-04-26] MEDS ORDERED: TIGHT: 0.2 ML/HR FOR DIALYSIS MISC PRN (07:43)
[2019-04-26] MEDS: ASPIRIN PO SCH (08:12)
[2019-04-26] MEDS: PROGRAF PO SCH ×2 (08:13→20:30)
[2019-04-26] MEDS: LOKELMA POWDER PACKET PO SCH (08:13)
[2019-04-26] MEDS: SODIUM BICARBONATE PO SCH ×2 (08:13→20:29)
[2019-04-26] MEDS: CELLCEPT PO SCH ×2 (08:13→20:29)
[2019-04-26] MEDS: NEXIUM PO SCH (08:13)
[2019-04-26] MEDS: ZAROXOLYN PO SCH (08:14)
[2019-04-26 08:19] LABS: ALBUMIN 3.2 g/dL (3.5-5.0); CALCIUM 8.2 mg/dL (8.8-10.2); CREATININE 5.4 mg/dL (0.7-1.2); PHOSPHORUS 8.4 mg/dL (2.7-4.5); POTASSIUM 4.5 mmol/L (3.5-5.1)
[2019-04-26 08:51] LABS: HEMATOCRIT 29.3 % (42.0-52.0); HEMOGLOBIN 9.8 g/dL (14.0-18.0); MCH 26.8 PG (27-31); MCHC 33.4 g/dL (33-37); MCV 80.3 FL (81-99); MPV 11.4 FL (7.4-10.4); RBC 3.65 XMIL (4.7-6.1); RDW 14.7 % (11.5-14.5); WBC 8.13 X1000 (4.8-10.8)
[2019-04-26] MEDS: ALBUMIN 25% IV SCH (09:16)
[2019-04-26] MEDS: XOPENEX NEB INH SCH ×3 (09:33→22:42)
--- NOTE | 2019-04-26 09:51 | NEPHROLOGY PROGRESS NOTE ---
DATE: 04/26/2019 SUBJECTIVE: He is now in the intensive care unit. He has been cycling on and off of BiPAP. Currently on closed face mask. Labored breathing. OBJECTIVE: Vital signs: Blood pressure 121/64, heart rate 62, respirations 26. Afebrile. Intake 3.2 L. Output 105 mL. General: He is sitting up at near 90 degrees. Increased work of breathing. Skin is warm and dry. Conjunctivae are pink. Neck veins are distended. Trachea is midline. Cardiovascular: Heart is regular and rate controlled. No murmurs or gallops are audible. Lungs: Equal with scattered crackles. Abdomen: Soft, nontender. Decreased bowel sounds. No organomegaly. Extremities: 3+ edema with weeping on the upper extremities. 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 Baseline creatinine approximately 1.8. Presumably, acute tubular necrosis. Certainly, it could be cardiorenal. Low FENA on yesterday. He did not respond to high dose diuretics, Lasix 200 mg IV. His cardiopulmonary status continues to worsen. As such, dialysis is really the only available alternative for volume management. I counseled the patient today regarding his kidney function, oliguria, volume overload and dialysis as potential management tool. Of course, he is upset but he is willing to proceed. I have consulted Dr. Zamora for a Vas-Cath placement. 4 hours, 2K, 130, goal of 3-4 L as blood pressure allows. cc: Jhonny Sandra MD
--- NOTE | 2019-04-26 10:25 | PROGRESS NOTE ---
DATE: 04/26/2019 SUBJECTIVE: Today Mr. Pineda refers to be doing fairly okay. However, he looks remarkably more swollen than yesterday. was at the bedside at the time of the encounter. OBJECTIVE: Vital signs: Blood pressure is 121/64, pulse of 60, respiration is 25, temperature is 96.8 degrees. Patient is saturating 93% on the BiPAP. General exam: Mr. Pineda is a 69-year-old gentleman. He is in bed. He is on BiPAP and seems to be synchronizing well. HEENT: The mucosa is pink and moist. Anicteric. Acyanotic. Neck: Supple. Chest: Air entry is bilaterally reduced. A few crackles in the posterior lung good. Cardiovascular: Regular rate and rhythm. No murmurs. GI/Abdomen: Soft, but remarkably distended. Bowel sounds present, but hypoactive. No hepatosplenomegaly. There is edema on the lateral aspect of the abdominal wall. Extremities: There is edema in the lower extremities up to the thighs and also the upper extremities. YIELD ANALYST: Patient is still slightly lethargic, but he would respond to basic questions and move extremities. INTAKE AND OUTPUT: The patient's urine output was 435 in the entire 24 hours. LABORATORY DATA: Hemoglobin is 9.8. Rest of CBC is unremarkable. ABGs show a pH of 7.34, pCO2 of 39. The chemistry looks terrible with a sodium of 132, bicarbonate is 13 with a gap of 30 and creatinine has gone up to 5.4. BUN is also up to 90. The patient's PTH is 492. DIAGNOSTIC STUDIES: A chest x-ray this morning continues to show cardiomegaly and pulmonary vascular congestion. There is multilobular infiltrates compatible with pneumonia or edema in the right lung. CURRENT MEDICATIONS: 1. Tylenol 650 p.r.n. 2. Albumin 50 IV daily. 3. Aspirin 81 mg p.o. daily. 4. Nexium 40 mg p.o. daily. 5. Lasix 80 mg IV q. 12 hours. 6. Hydrocortisone 25 mg IV q. 12 hours. 7. Insulin 50 units subcutaneous at bedtime. 8. Sliding scale insulin. 9. Levofloxacin 250 IV daily. 10. Zyvox 600 q. 12 hours. 11. Metolazone 10 mg p.o. daily. 12. CellCept 250 b.i.d. 13. Crestor 10 mg p.o. at bedtime. 14. Sodium bicarbonate 650 b.i.d. 15. Prograf 0.5 p.o. b.i.d. 16. Bactrim per pharmacy dosing. ASSESSMENT: 1. Acute on chronic hypercarbic respiratory failure with acute hypoxemic respiratory failure. 2. Fluid overload presumably combination of renal failure and diastolic heart failure. The patient does not seems to improve with diuretic therapy. This morning he looks even more swollen than before. He has been evaluated by Nephrology, and there is a plan to start him on dialysis. 3. Status post renal transplant on chronic immunosuppressive therapy. Patient continues to be on his medications. 4. Pulmonary edema with possible superimposed pneumonia. Patient is on antimicrobial coverage. 5. Severe metabolic acidosis with high gap secondary to the degree of the patient's renal failure. 6. Uncontrolled diabetes mellitus, improving. We will continue with the insulin regimen. 7. Hyperphosphatemia secondary to the renal failure. 8. 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 We will start the patient on cinacalcet. PLAN: So, in general, I think Mr. Pineda continues to be remarkably sick. He continues to be severely oligoanuric and his fluid status is getting worse. He is also getting worse with his metabolic acidosis, and his sodium has gone down to 120. The patient has been evaluated by Nephrology today, and there is a plan to start him on dialysis. cc: Judah Ponce MD
[2019-04-26] MEDS: SODIUM BICARBONATE 8.4% IV PUSH SCH ×3 (11:13→19:10)
--- NOTE | 2019-04-26 14:59 | OPERATIVE NOTE ---
PROCEDURE DATE: 04/26/2019 PREOPERATIVE DIAGNOSIS: Need for hemodialysis access. POSTOPERATIVE DIAGNOSIS: Need for hemodialysis access. PROCEDURE: Ultrasound-guided right common femoral Vas-Cath placement. SURGEON: Erick Emerson MD MOLD CHECKER: None. ANESTHESIA: Local administered by the surgeon. INTRAOPERATIVE FINDINGS: Ultrasound showed good caliber right common femoral vein. COMPLICATIONS: None at time of dictation. ESTIMATED BLOOD LOSS: 10 mL. BRIEF HISTORY: A 69-year-old gentleman with fluid overload secondary to combination renal failure and diastolic heart failure. He had been followed by Nephrology and it was felt that he was not improving and needed dialysis access. The risks, benefits, and alternatives were discussed. All questions answered. DESCRIPTION OF PROCEDURE: After informed consent was obtained, patient remained in his ICU bed. He remained on the CPAP machine. We prepped and draped the right groin in a standard fashion. We used the ultrasound to identify the common femoral vein. I was able used local anesthetic to anesthetize the skin. I was able to cannulate the right common femoral vein with ultrasound guidance and placed a wire. We used a Seldinger technique to dilate up the tract to place a Vas- Cath in the common femoral vein. All ports aspirated and flushed easily. We secured it in place in a standard fashion and placed a sterile dressing. The patient tolerated the procedure well and remained in the ICU. cc: Erick Emerson MD
--- NOTE | 2019-04-26 16:53 | PULMONOLOGY PROGRESS NOTE ---
DATE: 04/26/2019 SUBJECTIVE: The patient is arousable. He has been cycling off and on the BiPAP. He has mild work of breathing. OBJECTIVE: Vital Signs: The patient has been afebrile for the last 24 hours. His urine output remains low. BP 118/60, heart rate 62, respiratory rate 24, oxygen saturation 96%. HEENT: Pupils are equal and reactive. Oropharynx appears clear but dry. Neck: Supple. Chest: Reveals crackles bilaterally. Cardiac exam: S1, S2. Abdomen: Soft and obese. Extremities: Reveal 1 to 2+ peripheral edema upper and lower extremities. LABORATORIES: Sodium 120, potassium 4.5, chloride 97, bicarbonate 13, anion gap 30, BUN 90, creatinine 5.4. White blood count 8.13, hemoglobin 9.8, platelet count 188,000. Arterial blood gas reveals a pH 7.34, pCO2 of 39, pO2 of 78. Chest x-ray reveals asymmetric infiltrates, right greater than left with cardiomegaly and vascular congestion. IMPRESSION: A 69-year-old with: 1. Hypoxemic respiratory failure. 2. Hypercapnic respiratory failure. 3. Pulmonary edema, possible pneumonia. 4. Total body fluid overload. 5. Acute on chronic renal failure, status post renal transplantation. DISCUSSION: A 69-year-old with problems outlined above. He remains critically ill. His anion gap continues to climb along with worsening renal failure. PLAN: 1. Continue to cycle BiPAP and oxygen for hypoxemic and hypercapnic respiratory failure. The patient remains a full code. 2. Anticipate the need for renal replacement therapy. 3. Continue current antibiotic regimen. 4. Prognosis is guarded. Time spent in critical care management, 30 plus minutes. cc: Theron Bowman MD
[2019-04-26] MEDS: PHOSLO PO SCH ×2 (16:58→17:14)
[2019-04-26] MEDS: LEVAQUIN 250 MG/D5W 250 MG/50 ML IVPB IV SCH (19:11)
[2019-04-26] MEDS: CRESTOR PO SCH (20:29)
[2019-04-26] MEDS: SENSIPAR PO SCH (20:29)
[2019-04-26] MEDS: LANTUS INSULIN SUBQ SCH (20:39)
[2019-04-26] MEDS ORDERED: PHENERGAN IV ONE (20:43)
[2019-04-26] MEDS ORDERED: SODIUM CHLORIDE 0.9% INJ ONE (20:43)
[2019-04-27] MEDS: D5W IV SCH ×3 (02:09→17:39)
[2019-04-27] MEDS: SEPTRA IV SCH ×3 (02:09→17:39)
[2019-04-27] MEDS: ATROVENT NEB INH SCH ×3 (03:28→15:28)
[2019-04-27] MEDS: ZYVOX 600 MG/D5W 600 MG/300 ML IVPB IV SCH (03:48)
[2019-04-27] MEDS: SOLU-CORTEF IV SCH ×2 (03:48→15:14)
[2019-04-27] MEDS: ZOFRAN IV PRN ×2 (03:52→09:50)
[2019-04-27 04:41] LABS: ALLEN TEST YES; BE -1.1 mmoll (-3.0-3.0); BLOOD TYPE ARTERIAL; METHB 1.7 % (0.0-1.5); O2(CT) 12.9 mL/dL (15.0-23.0); O2HB 94.8 % (95.0-99.0); PCO2(98.6) 49 mmHg (35-45); PO2(98.6) 84 mmHg (60-100); SAMPLE BLOOD; SAO2 98.3 % (95.0-100.0); THB 9.6 g/dL (11.5-17.4); pH(98.6) 7.32 (7.35-7.45)
[2019-04-27 04:43] LABS: MODALITY BI PAP
[2019-04-27] MEDS: LASIX IV SCH ×2 (05:36→16:18)
[2019-04-27] MEDS: HUMALOG SUBQ SCH ×4 (06:07→22:23)
--- NOTE | 2019-04-27 06:19 | Diag Imaging Result Doc PS360 ---
EXAM: CHEST-PORTABLE HISTORY: respiratory failure TECHNIQUE: Single view COMPARISON: 04/26/2019 FINDINGS: Poor inspiratory effort. The heart is mildly prominent. There is pulmonary edema. This is more pronounced. There may be underlying infiltrates in the lower left lung. Small pleural effusions. IMPRESSION: Worsening pulmonary edema Electronically signed by Kenny Santana 04/27/2019 6:16 AM
[2019-04-27 06:34] LABS: HEMATOCRIT 29.9 % (42.0-52.0); HEMOGLOBIN 9.7 g/dL (14.0-18.0); MCHC 32.4 g/dL (33-37); MCV 83.3 FL (81-99); MPV 10.9 FL (7.4-10.4); RBC 3.59 XMIL (4.7-6.1); WBC 5.95 X1000 (4.8-10.8)
[2019-04-27 07:21] LABS: ALBUMIN 3.5 g/dL (3.5-5.0); CALCIUM 8.1 mg/dL (8.8-10.2); CREATININE 5.3 mg/dL (0.7-1.2); PHOSPHORUS 8.1 mg/dL (2.7-4.5); POTASSIUM 4.6 mmol/L (3.5-5.1)
[2019-04-27] MEDS: SODIUM BICARBONATE PO SCH ×2 (08:56→22:22)
[2019-04-27] MEDS: ALBUMIN 25% IV SCH (08:56)
[2019-04-27] MEDS: SENSIPAR PO SCH ×2 (08:56→22:23)
[2019-04-27] MEDS: NEXIUM PO SCH (08:56)
[2019-04-27] MEDS: ASPIRIN PO SCH (08:56)
[2019-04-27] MEDS: CELLCEPT PO SCH ×2 (08:56→22:22)
[2019-04-27] MEDS: ZAROXOLYN PO SCH (08:56)
[2019-04-27] MEDS: PROGRAF PO SCH ×2 (08:57→22:22)
[2019-04-27] MEDS: PHOSLO PO SCH ×3 (08:59→16:27)
[2019-04-27] MEDS: XOPENEX NEB INH SCH ×2 (09:35→15:28)
--- NOTE | 2019-04-27 10:15 | PULMONOLOGY PROGRESS NOTE ---
DATE: 04/27/2019 SUBJECTIVE: The patient's reports he was restless through the night. He is currently on BiPAP. He has no increased work of breathing while on this device. OBJECTIVE: Vital Signs: The patient has been afebrile for the last 24 hours. Blood pressure 119/50, heart rate 65, respiratory rate 14, oxygen saturation 95%. Intake 2360, output 4370. HEENT: Pupils are equal and reactive. Oropharynx evaluation is limited with BiPAP in place. Neck: Supple. Chest: Reveals coarse crackles bilaterally without wheezing. Cardiac exam: S1-S2. Abdomen: Obese and soft. Extremities: Reveal 2+ peripheral edema upper and lower extremities. LABORATORIES: Sodium 125, potassium 4.6, chloride 81, bicarbonate 20, BUN 77, creatinine 5.3, glucose 202, white blood count 5.95, hemoglobin 9.7, platelet count 160,000. Arterial blood gas reveals a pH 7.32, pCO2 of 49, PO2 of 84. Chest x-ray reveals slight increase in edema compared to yesterday's film. IMPRESSION: A 69-year-old with: 1. Hypoxemic respiratory failure. 2. Hypercapnic respiratory failure. 3. Pulmonary edema, possible pneumonia. 4. Total body fluid overload. 5. Acute on chronic renal failure. PLAN: 1. Continue to cycle BiPAP and oxygen and nasal cannula/face mask as tolerated. 2. Continue dialysis as per Nephrology. 3. Continue current antibiotic regimen. cc: Theron Bowman MD
[2019-04-27] MEDS: LOKELMA POWDER PACKET PO SCH (11:22)
[2019-04-27 11:41] LABS: HEPATITIS PROFILE ACUTE SEE COMMENTS
[2019-04-27] MEDS: PHENERGAN IV PRN ×2 (11:47→22:03)
--- NOTE | 2019-04-27 12:05 | PROGRESS NOTE ---
DATE: 04/27/2019 SUBJECTIVE: I saw Mr. Pineda today in the ICU. The daughter was at the bedside. Mr. Pineda refers to be doing fair. He was quite nauseated early on today. He underwent dialysis yesterday where 4000 fluid was ultrafiltrated. OBJECTIVE: Vital signs: His current vitals show blood pressure is 130/58, pulse of 60, respirations 23, temperature is 97.3 degrees. General: Mr. Pineda is a 69-year-old morbidly obese male. He is in bed. He is currently on a non-rebreather. HEENT: Mucosa is pink and moist. Anicteric. Acyanotic. Neck: Supple. Positive JVD. Chest: Air entry is bilaterally reduced. There are crackles in the posterior lung good. Cardiovascular: Regular rate and rhythm. No murmurs, no rubs, no gallops. GI: Abdomen is soft, it is distended. Bowel sounds present. There is no hepatosplenomegaly. There is edema on the lateral aspect of the abdominal wall. Extremities: There is edema on the upper extremities as well. Lower extremities have about 1 to 2+ pedal edema. HEALTH ADVISOR: Patient is awake but quite drowsy. He will respond to interrogation and then go back to sleep. No asterixis today. LABORATORY DATA: Hemoglobin is 9.7, platelet count of 160,000. Sodium is 125, potassium 4.6, chloride is 81, bicarb is 20. The patient's BUN is 5.3. So far, sputum culture is negative, and blood culture is also negative. DIAGNOSTIC STUDIES: A chest x-ray this morning shows worsening pulmonary edema. ASSESSMENT: 1. Acute on chronic hypercarbic respiratory failure with acute hypoxemic respiratory failure. The patient continues to be needing non-rebreather and BiPAP. 2. Fluid overload secondary to renal failure and diastolic heart failure. The patient was ultrafiltrated yesterday and 4000 mL was removed. He is pending another session of dialysis today. 3. Status post renal transplant, on chronic immunosuppressive therapy. 4. Pulmonary edema with possible superimposed pneumonia. A chest x-ray this morning seems to suggest worsening of the fluid. We will be waiting on dialysis today to see if that will get improved. The patient's white cell count is within normal range. Vitals are stable, so I do not think this is all infection. We will be waiting on the procalcitonin to make a decision if we can discontinue IV and all the antibiotics. For now we will discontinue the Zyvox. Continue on the Levaquin and the Bactrim. 5. Diabetes mellitus. Will continue with the insulin regimen. 6. Hyperphosphatemia with secondary hyperparathyroidism due to renal disease, noted. 7. Nausea and vomiting this morning with distended abdomen, concerning for possible underlying constipation. We will get a KUB to make sure there is not any obstructive pattern and then go from there. cc: Judah Ponce MD
--- NOTE | 2019-04-27 14:09 | Diag Imaging Result Doc PS360 ---
KUB ABDOMEN - 04/27/2019 INDICATION: SBO COMPARISON: 03/03/2019 FINDINGS: Portable technique was used. Detail is very poor. The stomach appears to be distended. Other bowel loops appear grossly normal. There is a right femoral vascular catheter. IMPRESSION: The stomach is distended with gas. No evidence for small bowel obstruction. Electronically signed by Maynor Navarro 04/27/2019 2:06 PM
--- NOTE | 2019-04-27 14:21 | NEPHROLOGY PROGRESS NOTE ---
DATE: 04/27/2019 SUBJECTIVE: He feels like he is somewhat better today. Still short of breath. Still very swollen. OBJECTIVE: Vital Signs: Blood pressure 138/56, heart rate 66, respiration 24, intake 2.4 L, output 4.4 L. General: Again very edematous but no acute distress. Skin: Warm and dry. HEENT: Conjunctivae are pink. Neck: Neck veins are not appreciated. Heart: Regular. Lungs: Equal, scattered crackles. Abdomen: Obese soft, nontender. Bowel sounds present. Extremities: With 3+ edema. No clubbing or cyanosis. IMPRESSION: Acute kidney injury. Presumably, acute tubular necrosis. Complicated by hyponatremia, acidosis and volume overload. His hyponatremia is improved. His acid-base status is improved. Volume status improved but still severely volume overloaded. Urine output has picked up a bit today. Dialysis again using a 2 potassium bath and a goal of 4 L ultrafiltration. Continue daily treatment. cc: Jhonny Sandra MD
[2019-04-27] MEDS: LEVAQUIN 250 MG/D5W 250 MG/50 ML IVPB IV SCH (16:18)
[2019-04-27] MEDS ORDERED: NS 2,000 ML MISC PRN (19:30)
[2019-04-27] MEDS ORDERED: TIGHT: 0.2 ML/HR FOR DIALYSIS MISC PRN (19:30)
[2019-04-27] MEDS ORDERED: HEPARIN IV PRN (19:30)
[2019-04-27] MEDS: CRESTOR PO SCH (22:22)
[2019-04-27] MEDS: LANTUS INSULIN SUBQ SCH (22:23)
[2019-04-28] MEDS: ATROVENT NEB INH SCH ×5 (01:47→21:06)
[2019-04-28] MEDS: XOPENEX NEB INH SCH ×4 (01:48→21:06)
[2019-04-28] MEDS: D5W IV SCH ×3 (02:13→18:38)
[2019-04-28] MEDS: SEPTRA IV SCH ×3 (02:13→18:38)
[2019-04-28] MEDS ORDERED: BLISTEX MEDICATED BERRY LIP BALM TOP PRN (03:35)
[2019-04-28] MEDS: SOLU-CORTEF IV SCH ×2 (03:42→15:51)
[2019-04-28 04:27] LABS: ALLEN TEST YES; BE 0.3 mmoll (-3.0-3.0); BLOOD TYPE ARTERIAL; HCO3-(ACT) 25.2 mmoll (20.0-26.0); METHB 1.4 % (0.0-1.5); O2(CT) 10.5 mL/dL (15.0-23.0); O2HB 95.7 % (95.0-99.0); PO2(98.6) 89 mmHg (60-100); SAMPLE BLOOD; THB 7.7 g/dL (11.5-17.4); pH(98.6) 7.27 (7.35-7.45)
[2019-04-28 04:28] LABS: MODALITY BI PAP; PCO2(98.6) 60 mmHg (35-45)
[2019-04-28] MEDS: PHENERGAN IV PRN ×3 (05:02→21:21)
[2019-04-28] MEDS: SODIUM CHLORIDE 0.9% INJ PRN ×3 (05:02→21:22)
[2019-04-28 05:03] LABS: HEMATOCRIT 28.3 % (42.0-52.0); HEMOGLOBIN 9.3 g/dL (14.0-18.0); MCH 27.2 PG (27-31); MCHC 32.9 g/dL (33-37); MCV 82.7 FL (81-99); MPV 10.6 FL (7.4-10.4); RBC 3.42 XMIL (4.7-6.1); RDW 14.8 % (11.5-14.5); WBC 5.83 X1000 (4.8-10.8)
[2019-04-28] MEDS: LASIX IV SCH ×2 (05:05→16:56)
[2019-04-28 05:34] LABS: ALBUMIN 3.8 g/dL (3.5-5.0); CALCIUM 8.3 mg/dL (8.8-10.2); CREATININE 3.3 mg/dL (0.7-1.2); PHOSPHORUS 5.7 mg/dL (2.7-4.5); POTASSIUM 4.2 mmol/L (3.5-5.1)
[2019-04-28] MEDS: HUMALOG SUBQ SCH ×4 (06:14→21:10)
--- NOTE | 2019-04-28 07:26 | Diag Imaging Result Doc PS360 ---
CHEST-PORTABLE - 04/28/2019 INDICATION: respiratory failure COMPARISON: 04/27/2019 FINDINGS: Stable cardiomegaly. There is worsening opacification throughout the right lung base. Stable central pulmonary edema. Stable retrocardiac consolidation compatible with atelectasis and/or effusion. IMPRESSION: Worsening opacification of the right lung base suggesting worsening atelectasis or effusion. Electronically signed by Maynor Navarro 04/28/2019 7:24 AM
[2019-04-28] MEDS: ALBUMIN 25% IV SCH (08:54)
--- NOTE | 2019-04-28 09:21 | PROGRESS NOTE ---
DATE: 04/28/2019 SUBJECTIVE: I have seen and examined Mr. Pineda today. He is still in the ICU. was at the bedside at the time of the encounter. Per the nursing staff, he continues to be extremely nauseated, and he has needed multiple doses of Phenergan yesterday and this morning. OBJECTIVE: Vital signs: Blood pressure is 178/71, pulse of 79, respiration is 22, temperature is 98.8 degrees. The patient is saturating 94% on a non-rebreather. General exam: Mr. Pineda is a 69-year-old gentleman. He is in bed in no distress. HEENT: Mucosa is pink and moist. Anicteric. Acyanotic. Neck: Supple. Chest: Air entry is bilaterally reduced, more so to the right posterior lung field. There are some crackles posteriorly. Cardiovascular: Regular rate and rhythm. No murmurs, no rubs, no gallops. GI/Abdomen: Soft. It is distended. Bowel sounds present, but remarkably hypoactive. There is no hepatosplenomegaly. Mild edema on the lateral aspect of the abdominal wall. Extremities: Trace pedal edema. DRESSMAKER OR TAILOR: Patient is drowsy, but is easily arousable. Follows basic commands and then goes right back to sleep. LABORATORY DATA: WBC is 5.83, hemoglobin is 9.3, platelet count of 166. The patient's pCO2 is 60. Chemistry is reviewed, all consistent with renal failure. Bicarbonate has significantly improved. So far, blood cultures have been 5 days negative. Sputum culture shows normal fabrizio. IMAGING STUDIES: 1. A KUB yesterday showed distended stoma with gas. 2. An x-ray this morning showed worsening opacification of the right lung bases suggesting worsened atelectasis or effusion. 3. The patient's intake/output: The patient's urine output was 2750. Yesterday, dialysis was 4000, but patient has a total negative balance of 2173. ASSESSMENT: 1. Acute on chronic hypercarbic respiratory failure with acute hypoxemic respiratory failure. Patient continues to be cycling between a non-rebreather and a BiPAP. 2. Fluid overload secondary to renal failure and diastolic heart failure. Patient is currently negative balance. He has been dialyzed twice. 3. Status post renal transplant on chronic immunosuppressive therapy noted. 4. Pulmonary edema with possible superimposed pneumonia. A chest x-ray this morning continues to show worsening of the right lower lung infiltrate. The patient continues to be on antimicrobial coverage. We are going to get a CAT scan of the lungs to have a better idea of what disease process this is. 5. Diabetes mellitus on insulin. 6. 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 Patient has been started on medications. 7. Nausea and vomiting associated with distended stomach on KUB. The patient continues to be remarkably nauseated, so we are going to put in a nasogastric tube to decompress the upper GI. The patient also has not had any bowel movement for the past 3 to 4 days, so will address that with bowel regimen and nasogastric tube, which will also serve for his medications and prevention of possible aspiration since patient continues to be altered. I have explained my findings and the plan to the , who is at the bedside. cc: Judah Ponce MD
[2019-04-28] MEDS ORDERED: NS 2,000 ML MISC PRN (09:22)
[2019-04-28] MEDS ORDERED: HEPARIN IV PRN (09:22)
[2019-04-28] MEDS ORDERED: TIGHT: 0.2 ML/HR FOR DIALYSIS MISC PRN (09:22)
[2019-04-28] MEDS: PHOSLO PO SCH ×3 (10:07→16:56)
--- NOTE | 2019-04-28 10:12 | Diag Imaging Result Doc PS360 ---
CHEST-PORTABLE - 04/28/2019 9:55 AM INDICATION: NG tube placement COMPARISON: 5:22 AM FINDINGS: There is a nasogastric tube in good position in the gastric fundus. IMPRESSION: Nasogastric tube in the stomach. Electronically signed by Maynor Navarro 04/28/2019 10:10 AM
[2019-04-28] MEDS: CELLCEPT PO SCH ×2 (10:31→20:19)
[2019-04-28] MEDS: ASPIRIN PO SCH (10:31)
[2019-04-28] MEDS: ZAROXOLYN PO SCH (10:31)
[2019-04-28] MEDS: NEXIUM PO SCH (10:31)
[2019-04-28] MEDS: SENSIPAR PO SCH ×2 (10:32→20:19)
[2019-04-28] MEDS: PROGRAF PO SCH ×2 (10:33→20:30)
[2019-04-28] MEDS: LOKELMA POWDER PACKET PO SCH (12:18)
--- NOTE | 2019-04-28 12:53 | Diag Imaging Result Doc PS360 ---
CT THORAX W/O CONTRAST - 04/28/2019 INDICATION: worsening infiltrates. COMPARISON: 04/28/2019, 03/03/2019 FINDINGS: There is severe soft tissue swelling in the subcutaneous fat over the anterior chest wall. This is worst over the right breast and central chest. No soft tissue gas or foreign body. No drainable fluid collections. There are [id number] bilateral pleural effusions. There is cardiomegaly. There is hazy interstitial pulmonary edema. There is moderate dependent atelectasis bilaterally. There is a nasogastric tube in good position in the stomach. Otherwise upper abdominal organs appear normal. There are moderate degenerative changes of the spine. No acute or suspicious bony lesion. IMPRESSION: 1. Significant cystitis/cellulitis of the anterior and right side of the chest wall. 2. Congestive heart failure. This exam was performed using automated exposure control, adjustment of mA or kV according to patient size, and/or use of iterative reconstruction technique Electronically signed by Maynor Navarro 04/28/2019 12:50 PM
--- NOTE | 2019-04-28 13:48 | NEPHROLOGY PROGRESS NOTE ---
DATE: 04/28/2019 SUBJECTIVE: He remains on a closed face mask. Urine output has picked up. No real changes otherwise. OBJECTIVE: Vital Signs: Blood pressure 178/71, heart rate 79, respirations 22, afebrile. Intake 1.7 L. Output 5.8 L with 1.8 L of that being urine output. General: Awake, alert, sitting up. Skin: Warm and dry. Neck: Neck veins are hard to read. Heart: Regular. No gallops. Lungs: Equal, scattered crackles. Abdomen: Obese, soft, nontender. Bowel sounds present. Extremities: 2+ edema. No clubbing or cyanosis. IMPRESSION: Acute kidney injury. Improving urine output. Electrolytes/acid base in target. Remains volume overloaded. Dialysis today with a goal of 4 L ultrafiltration. Observe thereafter. cc: Jhonny Sandra MD
--- NOTE | 2019-04-28 14:45 | PULMONOLOGY PROGRESS NOTE ---
DATE: 04/28/2019 SUBJECTIVE: The patient is currently on the face mask. He has decreased breath sounds while on the nonrebreather. He will be placed back on the BiPAP. He has had some difficulty with nausea and retching. OBJECTIVE: Vital Signs: The patient has been afebrile for the last 24 hours. Blood pressure 161/64, heart rate 76, respiratory rate 21, oxygen saturation 94%. HEENT: Pupils are equal and reactive. Oropharynx appears clear. Neck: Supple. Chest: Reveals diminished breath sounds bilaterally with occasional rhonchi. Cardiac: S1, S2. Abdomen: Obese and soft. Extremities: Reveal 1 to 2+ peripheral edema but with some decreased fluid over the last 2 days. LABORATORIES: Chest x-ray this morning reveals significant improvement on the left with some increased density on the right. White blood count 5.83, hemoglobin 9.3, platelet count 166,000. Sodium 133, potassium 4.2, chloride 94, bicarbonate 24, BUN 46, creatinine 3.3, glucose 167. Arterial blood gas, pH 7.27, pCO2 of 60, PO2 of 89. IMPRESSION: A 69-year-old with 1. Hypoxemic respiratory failure. 2. Hypercapnic respiratory failure. 3. Pleural effusions. 4. Pulmonary edema. 5. Total body fluid over. 6. Acute on chronic renal failure with prior renal transplantation. 7. Nausea with some retching. DISCUSSION: A 69-year-old with problems outlined above. He is now in negative fluid balance and is making excellent urine. He is not adequately ventilating on the nonrebreather mask and will need to be placed back on the BiPAP. If he has ongoing issues with nausea and vomiting and this will put him at risk for aspiration pneumonia. He may require intubation. PLAN: 1. CT scan to be reviewed after ordered by the hospitalist. 2. Continue BiPAP. 3. Additional fluid removal as tolerated. 4. Continue antibiotic regimen. 5. Guarded prognosis. cc: Theron Bowman MD
[2019-04-28] MEDS: LEVAQUIN 250 MG/D5W 250 MG/50 ML IVPB IV SCH (16:56)
[2019-04-28] MEDS: DULCOLAX PR SCH (18:04)
[2019-04-28] MEDS: CRESTOR PO SCH (20:19)
[2019-04-28] MEDS: LACTULOSE PO SCH (20:19)
[2019-04-28] MEDS: LANTUS INSULIN SUBQ SCH (21:09)
[2019-04-29] MEDS: SOLU-CORTEF IV SCH ×2 (02:51→15:09)
[2019-04-29] MEDS: SEPTRA IV SCH ×2 (02:51→09:53)
[2019-04-29] MEDS: D5W IV SCH ×2 (02:51→09:53)
[2019-04-29] MEDS: ATROVENT NEB INH SCH ×4 (03:20→21:00)
[2019-04-29 04:12] LABS: ALLEN TEST YES; BE 3.9 mmoll (-3.0-3.0); BLOOD TYPE ARTERIAL; METHB 1.3 % (0.0-1.5); O2(CT) 14.9 mL/dL (15.0-23.0); O2HB 95.9 % (95.0-99.0); PO2(98.6) 88 mmHg (60-100); SAMPLE BLOOD; SAO2 98.7 % (95.0-100.0); pH(98.6) 7.34 (7.35-7.45)
[2019-04-29 04:23] LABS: MODALITY NRB; PCO2(98.6) 57 mmHg (35-45)
[2019-04-29 05:17] LABS: HEMATOCRIT 31.3 % (42.0-52.0); HEMOGLOBIN 9.9 g/dL (14.0-18.0); MCH 26.3 PG (27-31); MCHC 31.6 g/dL (33-37); MPV 10.4 FL (7.4-10.4); RBC 3.77 XMIL (4.7-6.1); RDW 14.9 % (11.5-14.5); WBC 7.88 X1000 (4.8-10.8)
[2019-04-29] MEDS: LASIX IV SCH ×2 (05:36→17:11)
[2019-04-29 05:37] LABS: ALBUMIN 3.6 g/dL (3.5-5.0); CALCIUM 8.4 mg/dL (8.8-10.2); CREATININE 2.6 mg/dL (0.7-1.2); PHOSPHORUS 3.7 mg/dL (2.7-4.5); POTASSIUM 3.7 mmol/L (3.5-5.1)
[2019-04-29] MEDS: HUMALOG SUBQ SCH ×4 (06:31→22:54)
--- NOTE | 2019-04-29 08:04 | Diag Imaging Result Doc PS360 ---
CHEST-PORTABLE - 04/29/2019 INDICATION: respiratory failure COMPARISON: 04/28/2019 FINDINGS: There is a nasogastric tube in good position. Stable cardiomegaly and pulmonary vascular congestion. Stable extensive infiltrates centrally, right greater than left. Stable small bilateral pleural effusions. IMPRESSION: No change from prior. Electronically signed by Maynor Navarro 04/29/2019 8:01 AM
[2019-04-29] MEDS: LACTULOSE PO SCH ×2 (08:32→19:59)
[2019-04-29] MEDS: ALBUMIN 25% IV SCH (08:33)
[2019-04-29] MEDS: CELLCEPT PO SCH ×2 (08:33→20:35)
[2019-04-29] MEDS: ASPIRIN PO SCH (08:33)
[2019-04-29] MEDS: NEXIUM PO SCH (08:33)
[2019-04-29] MEDS: ZAROXOLYN PO SCH (08:33)
[2019-04-29] MEDS: SENSIPAR PO SCH ×2 (08:33→20:00)
[2019-04-29] MEDS: PROGRAF PO SCH ×2 (08:33→20:04)
[2019-04-29] MEDS: PHOSLO PO SCH ×4 (08:33→17:12)
[2019-04-29] MEDS: DULCOLAX PR SCH (08:33)
[2019-04-29] MEDS: XOPENEX NEB INH SCH ×3 (09:42→21:00)
[2019-04-29] MEDS: LOKELMA POWDER PACKET PO SCH (09:52)
[2019-04-29] MEDS: MERREM 500 MG in NS 50 ML IV SCH ×2 (09:52→17:13)
--- NOTE | 2019-04-29 11:19 | INFECTIOUS DISEASE PROGRESS NO ---
DATE: 04/29/2019 PRESENT ILLNESS: The patient is admitted to the hospital with marked dyspnea. I think most likely, the patient has pulmonary venous congestion and not pneumonia. Also on CT scan, it was noted that there was a cellulitis in the right chest wall. I examined the patient, and both right and left chest castillo look the same to me. I did not see any marked erythema, tenderness, or fluctuance. The patient did have a catheter in the left chest, and possibly from that, there could be some swelling and possibly even infection, but on exam, I do not really find that. MEDICATIONS: Currently, the patient is receiving meropenem and Septra. PHYSICAL EXAMINATION: Vital Signs: Temperature is 98.9 degrees, pulse 77, respirations 18, blood pressure 192/84. General: This is an obese, elderly male. He is lethargic. HEENT: He can hear my spoken words and see near objects, but as mentioned above, he quickly becomes lethargic after arousing him. He does have an NG tube in place. I did not see any white patches in his mouth. Neck: No stiffness. Thorax: As mentioned above, both sides of the chest, to me, look the same there. Both sides are swelling, and then some of it extends into the base of the neck, but neither one was very erythematous, and neither one was tender. Lungs: The lungs were clear to auscultation. Cardiovascular: Heart rate is regular. Abdomen: Soft and not tender. Neurologic: As mentioned above, the patient is lethargic. He is able to move his extremities. There is no tremor. IMAGING AND LABORATORY DATA: The patient's CBC shows a white count of 7880, hemoglobin 9.9, platelet count 187,000. Blood gases show a pH of 7.34, PO2 of 88, and a pCO2 of 57. Creatinine is 2.6. GFR is 25. Hepatitis panel is nonreactive. Chest x-ray shows pulmonary vascular congestion, and extensive infiltrate centrally. CT scan of the chest showed right chest wall cellulitis and congestive heart failure. ASSESSMENT AND PLAN: I think that the patient's pulmonary infiltrates are due to pulmonary venous congestion and not pneumonia. Also, I do not find evidence of a right chest wall cellulitis. To me, the right wall seems the same as the left wall. My recommendations would be to stop the Septra since the patient has kidney problems, and instead I have put the patient on Zyvox intravenously. He already is on meropenem, and the dose has been modified because of the patient's renal failure. Also, I have ordered a procalcitonin, and hopefully it will be able to help me determine if the patient does have pneumonia or pulmonary venous congestion or possibly a combination of both. COMORBIDITIES: He is obese. He has had a renal transplant, and his kidney function is poor. The patient also has diabetes mellitus, congestive heart failure, hypertension, and morbid obesity. cc: David Chaidez MD
[2019-04-29] MEDS: PHENERGAN IV PRN (11:38)
[2019-04-29] MEDS: SODIUM CHLORIDE 0.9% INJ PRN (11:39)
[2019-04-29] MEDS: PROTONIX IV SCH (11:46)
[2019-04-29] MEDS: SODIUM CHLORIDE 0.9% INJ SCH (11:46)
[2019-04-29] MEDS ORDERED: ADALAT CC PO ONE (11:51)
[2019-04-29] MEDS: ZYVOX 600 MG/D5W 600 MG/300 ML IVPB IV SCH ×2 (12:09→22:53)
[2019-04-29] MEDS: COREG PO SCH ×2 (12:10→20:01)
--- NOTE | 2019-04-29 12:11 | PROGRESS NOTE ---
DATE: 04/29/2019 SUBJECTIVE: This morning, Mr. Pineda refers to be doing fairly okay. Denies any new complaints. He continues to be nauseating every now and then. The was at the bedside at the time of the encounter and she was concerned about some mild swelling at the supraclavicular fossa. OBJECTIVE: Vital Signs: Blood pressure is 192/84, pulse 77, respirations are 18, temperature is 98.9 degrees. General Examination: Mr. Pineda is a 69-year-old, male. He is in bed. He is on a nonrebreather. HEENT: Mucosa is pink and moist. Anicteric. Acyanotic. Neck: Supple. I did not see any JVD. Chest: Air entry was bilaterally reduced. A few crackles posteriorly. There was mild diffuse expiratory wheezing. Cardiovascular: Regular rate and rhythm. There were no murmurs, no rubs, no gallops. GI: Abdomen is soft, very distended but nontender. Bowel sounds present but hypoactive. Extremities: Trace pedal edema. DIRECTORY COMPILER: The patient is more awake, responsive, and oriented. Moves all extremities. Is and Os: Urine output was 3840. The patient was also dialyzed 4000 yesterday. He is currently a total negative balance of 8428. Current Laboratory Data: Has been reviewed. CBC remained stable. PCO2 on the ABG dropped to 57. Chemistry is consistent with renal disease. Imaging Studies: This morning, a chest x-ray continues to show extensive infiltrate centrally, right greater than left. The patient's procalcitonin was 0.87 which is elevated and it is probable for a bacterial pneumonia. ASSESSMENT: 1. Acute on chronic hypercarbic respiratory failure with acute hypoxemic respiratory failure. The patient continues to cycle between nonrebreather and a BiPAP. Pulmonary medicine is on board. 2. Fluid overload secondary to renal failure and diastolic heart failure. The patient continues to make adequate urine and he is also getting dialysis. Nephrology is on board. 3. Status post renal transplant, on chronic immunosuppressive therapy. 4. Pulmonary edema with possible superimposed pneumonia. A chest x-ray this morning seems to show worsening. I have consulted infectious disease. I have also changed his antibiotics to meropenem. We have discontinued the Bactrim and has been started on Zyvox. 5. Persistent nausea and vomiting. We will continue symptomatic management. Unsure if Bactrim could be contributing to this as well. It has been discontinued and we will follow up and see if there is any improvement. If patient continues to be symptomatic even with adequate bowel movements, then we will get gastroenterology to evaluate the upper gastrointestinal tract. 6. 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 Noted. The patient is on medications. 7. Diabetes mellitus. We will continue with the insulin regimen. 8. Uncontrolled hypertension. We will increase the patient's nifedipine to his previous dose and add his carvedilol. cc: Judah Ponce MD
[2019-04-29] MEDS: APRESOLINE PO SCH ×2 (13:10→20:01)
[2019-04-29] MEDS: CRESTOR PO SCH (20:01)
[2019-04-29] MEDS: LANTUS INSULIN SUBQ SCH (20:13)
[2019-04-30] MEDS: PHENERGAN IV PRN (00:04)
[2019-04-30] MEDS ORDERED: NS 0 ML ONE (01:18)
[2019-04-30] MEDS: MERREM 500 MG in NS 50 ML IV SCH ×3 (01:20→17:14)
[2019-04-30] MEDS: ATROVENT NEB INH SCH ×4 (03:11→22:15)
[2019-04-30 04:19] LABS: ALLEN TEST YES; BE 10.8 mmoll (-3.0-3.0); BLOOD TYPE ARTERIAL; HCO3-(ACT) 33.3 mmoll (20.0-26.0); METHB 1.2 % (0.0-1.5); O2(CT) 14.4 mL/dL (15.0-23.0); O2HB 95.8 % (95.0-99.0); PO2(98.6) 86 mmHg (60-100); SAMPLE BLOOD; SAO2 98.5 % (95.0-100.0); THB 10.6 g/dL (11.5-17.4); pH(98.6) 7.38 (7.35-7.45)
--- NOTE | 2019-04-30 04:21 | PULMONOLOGY PROGRESS NOTE ---
DATE: 04/21/2019 SUBJECTIVE: The patient is arousable. He reports he feels significantly better. He has had some nausea and retching, but no obvious aspiration event. OBJECTIVE: Vital Signs: Blood pressure 172/91, heart rate 74, respiratory rate 20, oxygen saturation 98%. He has been afebrile for the last 24 hours. Intake 1835 and output 8090. HEENT: Pupils are equal and reactive. Oropharynx appears clear. Neck: Supple. Chest: Reveals decreased breath sounds at both lung bases. Cardiac: S1-S2. Abdomen: Obese and soft. Extremities: Reveal significant decrease in peripheral edema. LABORATORIES: Chest x-ray reveals near clear lung good on the left with diffuse infiltrate on the right. White blood count 7.88, hemoglobin 9.9, platelet count a 187,000. Sodium 135, potassium 3.7, chloride 92, bicarbonate 27, BUN 35, creatinine 2.6. Arterial blood gas reveals a pH of 7.34, pCO2 of 57, and pO2 of 88. IMPRESSION: A 69-year-old with: 1. Hypoxemic respiratory failure. 2. Hypercapnic respiratory failure. 3. Bilateral pleural effusions. 4. Pulmonary edema. 5. Total body fluid overload. 6. [id number]-[id number] renal failure, status post transplantation. 7. Nausea with retching. DISCUSSION: A 69-year-old with problems outlined above. He continues to have a negative fluid balance. He looks significantly better today than he has over the last 4 to 5 days. RECOMMENDATIONS: 1. Continue diuresis as tolerated. 2. Continue nocturnal BiPAP. 3. Agree with antibiotic management per Infectious Disease. Agree with discontinuing the sulfa drug, which may be causing his nausea. 4. Guarded prognosis, but overall he has had clinical improvement. cc: Theron Bowman MD
[2019-04-30] MEDS: LASIX IV SCH ×3 (04:27→18:14)
[2019-04-30 04:38] LABS: MODALITY NRB; PCO2(98.6) 64 mmHg (35-45)
[2019-04-30 05:15] LABS: HEMATOCRIT 30.6 % (42.0-52.0); HEMOGLOBIN 9.9 g/dL (14.0-18.0); MCH 26.8 PG (27-31); MCHC 32.4 g/dL (33-37); MCV 82.7 FL (81-99); MPV 10.5 FL (7.4-10.4); RBC 3.7 XMIL (4.7-6.1); RDW 14.9 % (11.5-14.5); WBC 8.01 X1000 (4.8-10.8)
[2019-04-30 06:01] LABS: ALBUMIN 3.9 g/dL (3.5-5.0); CALCIUM 8.5 mg/dL (8.8-10.2); PHOSPHORUS 3.4 mg/dL (2.7-4.5); POTASSIUM 3.1 mmol/L (3.5-5.1)
[2019-04-30] MEDS: SOLU-CORTEF IV SCH ×2 (06:29→14:59)
[2019-04-30] MEDS: HUMALOG SUBQ SCH ×4 (07:19→20:08)
--- NOTE | 2019-04-30 07:25 | Diag Imaging Result Doc PS360 ---
EXAM: CHEST-PORTABLE INDICATION: respiratory failure TECHNIQUE: One view COMPARISON: 04/29/2019 FINDINGS: The NG tube is in stable position. Inspiration is suboptimal similar to the previous study. There is stable bilateral infiltrates, more prominent on the right and there is stable pulmonary venous congestion. No new consolidation is identified. Cardiac silhouette is stable. IMPRESSION: Stable chest. Electronically signed by Bob Becker 04/30/2019 7:22 AM
--- NOTE | 2019-04-30 07:57 | INFECTIOUS DISEASE PROGRESS NO ---
DATE: 04/30/2019 PRESENT ILLNESS: The patient is admitted to the hospital with dyspnea. And on CT scan he has pulmonary venous congestion. Based on the fact that the patient's procalcitonin is elevated at 0.87 and because the patient does have pulmonary infiltrates, it appears he has pneumonia. He may also have pulmonary venous congestion. The patient had immunoglobulin levels drawn. The IgG level was 672. This is such a minimal decrease in the IgG, with normal being starting at 700, that I think it is not clinically significant and does not require treatment with IVIG. The patient is on Zyvox, which was started yesterday, and he also is on meropenem, which was started yesterday also. Finally, the patient's CT scan was read as showing cellulitis in the right chest. I have examined the patient again today thoroughly, and both the left and right sides of the chest are not erythematous or tender, and there is no crepitus present either. I doubt that the patient does have chest wall cellulitis. MEDICATIONS: The patient had been on are question the patient has been on meropenem and Zyvox for 1 day. PHYSICAL EXAMINATION: Vital Signs: Temperature is 98 degrees, pulse 67, respirations 20, blood pressure 156/67. General: This is an ill-appearing elderly male. He is in no acute distress. Head/Eyes/Ears/Nose/Throat: He can hear my spoken words and see near objects. He does not have any white patches in his mouth. The patient has an NG tub in place. Neck: No pain with movement. Lungs: Clear to auscultation. Cardiovascular: Heart rate is regular. I saw on the monitor 1 premature beat only. Abdomen: Soft and nontender. Neurologic: The patient is alert. He can move his extremities. There is no tremor. LAB AND X-RAY: The patient's CBC shows a white count of 8010, hemoglobin 9.9, platelet count 167,000. Blood gases show a pH of 7.38, a PO2 of 86, and a pCO2 of 64. The creatinine is 3, GFR is 21. Procalcitonin is 0.87. IgG is 672 and IgA is 178. Hepatitis panel is nonreactive. ASSESSMENT AND PLAN: The patient appears to have pneumonia. There may be a component of pulmonary venous congestion. As I mentioned above, his IgG level is only minimally decreased, and I do not think it is clinically significant and I do not think the patient needs intravenous immunoglobulin infusion. COMORBIDITIES: The patient is elderly. He has had a renal transplant and is on immunosuppressive medication. The patient also has renal failure, diabetes mellitus, congestive heart failure, hypertension, and morbid obesity. cc: David Chaidez MD
[2019-04-30] MEDS: ZAROXOLYN PO SCH (08:00)
[2019-04-30] MEDS: LACTULOSE PO SCH ×3 (08:00→21:07)
[2019-04-30] MEDS: CELLCEPT PO SCH ×2 (08:00→20:07)
[2019-04-30] MEDS: DULCOLAX PR SCH ×2 (08:00→08:20)
[2019-04-30] MEDS: SODIUM CHLORIDE 0.9% INJ SCH (08:00)
[2019-04-30] MEDS: PROTONIX IV SCH (08:00)
[2019-04-30] MEDS: PHOSLO PO SCH ×3 (08:01→17:14)
[2019-04-30] MEDS: ADALAT CC PO SCH (08:01)
[2019-04-30] MEDS: ASPIRIN PO SCH (08:01)
[2019-04-30] MEDS: PROGRAF PO SCH ×2 (08:01→20:08)
[2019-04-30] MEDS: SENSIPAR PO SCH ×2 (08:01→20:07)
[2019-04-30] MEDS: COREG PO SCH ×2 (08:01→20:07)
[2019-04-30] MEDS: APRESOLINE PO SCH ×3 (08:01→20:07)
[2019-04-30] MEDS: XOPENEX NEB INH SCH ×3 (09:44→22:15)
[2019-04-30] MEDS ORDERED: KLOR-CON PO ONE (09:55)
--- NOTE | 2019-04-30 10:46 | PROGRESS NOTE ---
DATE: 04/30/2019 SUBJECTIVE: This morning, Mr. Pineda refers to be doing a lot better. He was asking if he could even stand up. He has been evaluated by Nephrology. No need for dialysis today. OBJECTIVE: Vital signs: Blood pressure is 166/83, pulse of 64, respiration is 19, temperature 98.4 degrees. The patient is saturating 100% on a non-rebreather. General: Mr. Pineda is a 69- year-old morbidly obese, male. He has a BMI of 33.1. He is in bed. No distress. HEENT: Mucosa is pink and moist. Anicteric. Acyanotic. Neck: Supple. No JVD. Neck: Short. Chest: Air entry is bilaterally reduced. A few crackles posteriorly, but no wheezing. No rhonchi. Cardiovascular: Regular rate and rhythm. No murmurs, no rubs, no gallops. Gastrointestinal: Abdomen is soft, distended, but nontender. Bowel sounds present. Slightly hypoactive. Extremities: No pedal edema. Central Nervous System: Patient is awake, alert, oriented. Moves all extremities upon command. INTAKE AND OUTPUT: Urine output was 4375. He is currently negative balance of 10,838 during the hospital course. The patient's current weight is 244. I think he had a weight of about 287 sometime during the hospital course. Bowel movements, 2 documented yesterday. CURRENT MEDICATIONS: Have also been reviewed. He is currently on meropenem from yesterday. Zyvox. ASSESSMENT: 1. Acute on chronic hypercarbic respiratory failure with acute hypoxemic respiratory failure. The patient seems to be saturating better. He cycles between non-rebreather and BiPAP. PCO2 this morning was slightly elevated. We will encourage patient to continue wearing BiPAP especially at night. 2. Fluid overload secondary to renal failure and diastolic heart failure. The patient is making adequate urine. He has had 3 sessions of dialysis with ultrafiltration during the hospital course. He has been evaluated today. No need for dialysis. 3. Status post renal transplant on chronic immunosuppressive therapy noted. 4. Pulmonary edema with superimposed pneumonia. Procalcitonin is elevated. A chest x-ray this morning shows stable bilateral infiltrates, more prominent on the right. Antimicrobials, meropenem was added yesterday. Infectious Disease is on board. We will continue to follow up with recommendations from them. 5. Nausea and vomiting improved. 6. 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 Patient on medications. 7. Diabetes mellitus. Patient is on insulin regimen. 8. Uncontrolled hypertension, improving. PLAN: In general, I think Mr. Pineda is doing a lot better. He is day 9 in hospital. He initially presented on 04/21/2019 because of shortness of breath and fluid overload. During the hospital course, he became more symptomatic and he was transferred to the ICU. His creatinine continued to be climbing up and he was more fluid overload, more acidotic, so a decision was made to get him dialysis with ultrafiltration. The patient has had 3 sessions of renal replacement therapy. This morning, he is looking a lot better. He still has a very precarious respiratory status, so we will continue monitoring him in the ICU. We will get physical therapy to work with him today. We are going to discontinue the NG tube and start him on clears. Mr. Pineda is tolerating all his p.o. medications. Hopefully, we will be able to transfer him from the unit within the next 24 to 48 hours. cc: Judah Ponce MD MTDD
[2019-04-30] MEDS: ZYVOX 600 MG/D5W 600 MG/300 ML IVPB IV SCH ×2 (10:56→21:53)
--- NOTE | 2019-04-30 15:31 | NEPHROLOGY PROGRESS NOTE ---
DATE: 04/30/2019 TIME SEEN: 06:55. SUBJECTIVE: Mr. Pineda is resting quietly in bed. He remains on 100% non- rebreather. States that his breathing has improved. Denies pain. OBJECTIVE: Vital Signs: Temperature 97.5 degrees, blood pressure 157/69, heart rate 71, respirations 19. He is currently on 100% non-rebreather. Last recorded saturation 94%. He has had 2015 in, 4425 out. He is in a negative 11 L fluid balance since admission. Labs: Sodium 133, potassium 3.1, chloride is 84, CO2 33, BUN 50, creatinine 3, glucose 147, anion gap is 16, calcium 8.5, phosphorus 3.4, albumin 3.9. White count 8.01, hemoglobin 9.9, hematocrit 30.6, with a platelet count of 167,000. The patient's ABGs, pH 7.38, CO2 86, PO2 33.3 with a bicarbonate of 10.8 on 100% non-rebreather. The patient had IgG and IgM ordered with an IgG level low. PHYSICAL EXAMINATION: General: This is a 69-year-old white male. He is currently resting quietly in bed. He appears in no acute distress. Skin: Warm and dry. HEENT: Normocephalic, atraumatic. Conjunctiva is pale pink. He has MANJULA. Mucous membranes are dry. The patient has a nasogastric tube to the left naris that is currently clamped. Neck: Supple. Trachea midline. Continues with positive JVD, though hard to read. Cardiovascular: He is regular rate and rhythm. He has a soft systolic murmur. Lungs: Clear to auscultation bilaterally with faint crackles to the posterior bases. Remains on O2 support. Abdomen: Obese, soft, nontender. Positive bowel sounds. Genitourinary: Not inspected. Increased urinary output in the last 48 hours. Extremities: Continues with 2+ lower extremity edema. Neurological: Patient is alert and oriented to person and to place. ASSESSMENT AND PLAN: 1. Acute kidney injury on chronic kidney disease stage 4. Patient's BUN and creatinine are fairly stable. He remains on Lasix 80 mg b.i.d. We will decrease this to 40 mg b.i.d. Re- evaluate labs in the a.m. Continue to monitor strict I's and O's. 2. Electrolytes and acid-base balance. Patient has hypokalemia. This has already been ordered for supplementation. We will recheck labs in the a.m. 3. Acid-base balance. Patient is slightly alkalotic. Anion gap is only 16. Continues to close. 4. Anemia. This is low but stable with no indications for intervention. 5. Fluid volume overload. Patient is in a negative 11 L fluid balance. We will evaluate labs in the a.m. and determine the patient's fluid volume status. I would like to thank you for allowing us to follow with this patient. Dictated by ISAAK Wagner for Jhonny Sandra MD Face to face encounter, data reviewed, discussed with Joseph Stuart on 04/30/19. I agree with the above assessment and plan of care. cc: ISAAK Wagner MD [facility]
[2019-04-30] MEDS: CRESTOR PO SCH (20:07)
[2019-04-30] MEDS: LANTUS INSULIN SUBQ SCH (20:08)
[2019-05-01] MEDS: MERREM 500 MG in NS 50 ML IV SCH ×3 (02:12→17:28)
[2019-05-01] MEDS: SOLU-CORTEF IV SCH ×2 (02:15→15:37)
[2019-05-01] MEDS: ATROVENT NEB INH SCH ×4 (03:23→21:11)
[2019-05-01 04:33] LABS: ALLEN TEST YES; BE 14.9 mmoll (-3.0-3.0); BLOOD TYPE ARTERIAL; HCO3-(ACT) 36.5 mmoll (20.0-26.0); METHB 1.1 % (0.0-1.5); O2(CT) 15.3 mL/dL (15.0-23.0); O2HB 96.2 % (95.0-99.0); PO2(98.6) 97 mmHg (60-100); SAMPLE BLOOD; SAO2 99.1 % (95.0-100.0); THB 11.2 g/dL (11.5-17.4); pH(98.6) 7.47 (7.35-7.45)
[2019-05-01 04:34] LABS: MODALITY BI PAP; PCO2(98.6) 56 mmHg (35-45)
[2019-05-01] MEDS: SODIUM CHLORIDE 0.9% INJ SCH (06:08)
[2019-05-01] MEDS: PROTONIX IV SCH (06:08)
[2019-05-01] MEDS: LASIX IV SCH ×2 (06:09→17:29)
[2019-05-01 06:11] LABS: HEMATOCRIT 32.9 % (42.0-52.0); HEMOGLOBIN 10.6 g/dL (14.0-18.0); MCH 26.8 PG (27-31); MCHC 32.2 g/dL (33-37); MCV 83.3 FL (81-99); MPV 10.4 FL (7.4-10.4); RBC 3.95 XMIL (4.7-6.1); RDW 15.1 % (11.5-14.5); WBC 7.48 X1000 (4.8-10.8)
[2019-05-01] MEDS: HUMALOG SUBQ SCH ×4 (06:17→20:14)
[2019-05-01 06:40] LABS: ALBUMIN 3.7 g/dL (3.5-5.0); CALCIUM 8.9 mg/dL (8.8-10.2); CREATININE 2.8 mg/dL (0.7-1.2); PHOSPHORUS 2.5 mg/dL (2.7-4.5); POTASSIUM 3.3 mmol/L (3.5-5.1)
--- NOTE | 2019-05-01 07:29 | Diag Imaging Result Doc PS360 ---
EXAM: CHEST-PORTABLE INDICATION: respiratory failure TECHNIQUE: One view COMPARISON: 04/30/2019 FINDINGS: There has been improvement of bilateral pleural effusions, more notable on the left. Pulmonary venous congestion and interstitial edema has also improved somewhat. No new consolidation is identified. Cardiac silhouette is stable. There has been interval removal of the NG tube. IMPRESSION: Interval improvement as described. Electronically signed by Bob Becker 05/01/2019 7:27 AM
[2019-05-01] MEDS: APRESOLINE PO SCH ×3 (08:17→20:14)
[2019-05-01] MEDS: SENSIPAR PO SCH ×2 (08:17→20:14)
[2019-05-01] MEDS: CELLCEPT PO SCH ×2 (08:17→20:13)
[2019-05-01] MEDS: COREG PO SCH ×2 (08:17→20:14)
[2019-05-01] MEDS: ADALAT CC PO SCH (08:18)
[2019-05-01] MEDS: DULCOLAX PR SCH (08:18)
[2019-05-01] MEDS: PHOSLO PO SCH ×3 (08:18→17:28)
[2019-05-01] MEDS: ZAROXOLYN PO SCH (08:18)
[2019-05-01] MEDS: LACTULOSE PO SCH ×3 (08:18→20:27)
[2019-05-01] MEDS: PROGRAF PO SCH ×2 (08:18→20:14)
[2019-05-01] MEDS: ASPIRIN PO SCH (08:18)
[2019-05-01] MEDS: ZYVOX 600 MG/D5W 600 MG/300 ML IVPB IV SCH ×2 (09:33→22:30)
[2019-05-01] MEDS: XOPENEX NEB INH SCH ×3 (09:49→21:11)
--- NOTE | 2019-05-01 13:35 | INFECTIOUS DISEASE PROGRESS NO ---
DATE: 05/01/2019 PRESENT ILLNESS: The patient has a combination I think of pneumonia and pulmonary venous congestion. MEDICATIONS: The patient is in day 2 of Zyvox and meropenem. PHYSICAL EXAMINATION: Vital Signs: Temperature is 97.7 degrees, pulse 69, respirations 19, blood pressure 160/66. General: This is an ill-appearing elderly male. He is in no acute distress. Head, Eyes, Ears, Nose, and Throat: He can hear my spoken words and see near objects. I did not see any white coating to his tongue. Neck: No pain with movement. Lungs: Clear to auscultation. Cardiovascular: Heart rate is regular. Abdomen: Soft and nontender. Neurologic: Today the patient is awake. He can move his extremities. He does not have a tremor. LABORATORY AND X-RAY: The x-ray shows improvement in the pulmonary venous congestion and pleural effusions. The patient's creatinine is 2.8. GFR is 23. CBC shows a white count of 7480, hemoglobin 10.6, and platelet count 180,000. ASSESSMENT AND PLAN: The patient appears to have pneumonia. There also appears to be pulmonary venous congestion. The patient's IgG level is only minimally decreased, and it does not require immunoglobulin infusion. I plan to continue with the patient's Zyvox and meropenem. COMORBIDITIES: The patient is elderly. He has a renal transplant and is on immunosuppressive medication. The patient also has renal failure, diabetes mellitus, congestive heart failure, hypertension, and morbid obesity. cc: David Chaidez MD
--- NOTE | 2019-05-01 14:22 | PROGRESS NOTE ---
DATE: 05/01/2019 SUBJECTIVE: Mr. Pineda is doing better. He is sitting up in a chair, and asking to advance his diet. OBJECTIVE: Temperature is 97.7 degrees, pulse 69, respirations 19, and blood pressure 160/66. Pupils are equal and round. Lungs are clear in all lung good.Cardiovascular: Regular rhythm and rate without murmur or S3. Input and Output: Urine output was 1600 mL. ASSESSMENT AND PLAN: 1. The patient had acute on chronic hypercarbic respiratory failure with acute hypoxemic respiratory failure. Patient seems to be saturating better in air, and gas exchange improved. His cycles between non breather and BiPAP, pCO2 has improved, but still slightly elevated. Continued to wean off the BiPAP. He is doing much better. 2. Fluid overload secondary to renal failure and diastolic heart failure. The patient making adequate urine. He has had 3 sessions of dialysis, and ultrafiltration during the hospital course and his renal function is improved. 3. Status post renal transplant on chronic immunosuppressive therapy noted. 4. Pulmonary edema with superimposed pneumonia. Procalcitonin was elevated. Chest x-ray showed bilateral infiltrates more prominent on the right. Antimicrobials and meropenem were added. Infectious Disease is following. 5. Nausea and vomiting, improved. 6. Hyperphosphatemia secondary to hyperparathyroidism due to renal disease. The patient is on medication. 7. Diabetes mellitus type 2. 8. Uncontrolled hypertension. Blood pressure is improved. We are going to advance him to a soft gastrointestinal diet. His request following his blood sugars, he is on Lantus insulin. He is getting Lantus insulin 50 units subcutaneous at bedtime, Crestor 10 mg at bedtime, aspirin 81 mg a day, calcium acetate which is 667 mg p.o. t.i.d., Coreg 25 mg b.i.d., Sensipar 30 mg p.o. b.i.d., Lasix 40 mg IV q.12, Apresoline 25 mg p.o. t.i.d., ipratropium bromide 0.5 mg q.6 hours, lactulose 30 mL p.o. b.i.d., Xopenex treatments q.6 hours, meropenem 500 mg IV q.8 hours, Zaroxolyn 10 mg p.o. daily, mycophenolate 250 mg p.o. b.i.d., nifedipine ER 30 mg p.o. daily, Protonix 40 mg IV daily, Prograf or tacrolimus 0.5 mg p.o. b.i.d., and linezolid 600 mg IV q.12h cc: Fede Amezcua MD
--- NOTE | 2019-05-01 16:19 | NEPHROLOGY PROGRESS NOTE ---
DATE: 05/01/2019 SUBJECTIVE: He is sleeping in bed but easily arousable. He does not complain of shortness of breath. OBJECTIVE: Vital Signs: Blood pressure 160/66, heart rate 69, respiration 19, afebrile. Intake 2.2 L. Output 2.9 L. General: No acute distress. Skin is warm and dry. Neck veins are not appreciated. Cardiovascular: Heart is regular. Lungs: Equal with scattered crackles and wheezes. Abdomen: Soft, obese, nontender. Bowel sounds present. Extremities: With 2+ edema but marked improvement over the last 48 hours. IMPRESSION: Acute kidney injury, overlying history of renal transplantation. His creatinine is 2.8 today. Good urine output. Moderate hyponatremia and hypokalemia. Responding to diuretics so we will hold dialysis today. cc: Jhonny Sandra MD
[2019-05-01] MEDS: CRESTOR PO SCH (20:14)
[2019-05-01] MEDS: LANTUS INSULIN SUBQ SCH (20:14)
[2019-05-02] MEDS: SOLU-CORTEF IV SCH ×2 (02:32→15:56)
[2019-05-02] MEDS: MERREM 500 MG in NS 50 ML IV SCH ×3 (02:32→17:19)
[2019-05-02] MEDS: ATROVENT NEB INH SCH ×4 (03:33→21:20)
[2019-05-02 04:48] LABS: ALLEN TEST YES; BE 16.6 mmoll (-3.0-3.0); BLOOD TYPE ARTERIAL; HCO3-(ACT) 37.9 mmoll (20.0-26.0); METHB 0.7 % (0.0-1.5); O2HB 97.5 % (95.0-99.0); PCO2(98.6) 35 mmHg (35-45); PO2(98.6) 174 mmHg (60-100); SAMPLE BLOOD; THB 11.4 g/dL (11.5-17.4)
[2019-05-02 04:53] LABS: MODALITY BI PAP; pH(98.6) 7.65 (7.35-7.45)
--- NOTE | 2019-05-02 05:53 | Diag Imaging Result Doc PS360 ---
EXAM: CHEST-PORTABLE HISTORY: respiratory failure TECHNIQUE: Single view COMPARISON: 05/01/2019 FINDINGS: Poor inspiratory effort. Heart is prominent. There is a small left effusion and an even smaller right pleural effusion. Lower lung infiltrates are less prominent on the right. There is basilar atelectasis. IMPRESSION: Mild interval improvement. Electronically signed by Kenny Santana 05/02/2019 5:51 AM
[2019-05-02] MEDS: PROTONIX IV SCH (06:18)
[2019-05-02] MEDS: LASIX IV SCH ×2 (06:18→17:19)
[2019-05-02] MEDS: SODIUM CHLORIDE 0.9% INJ SCH (06:18)
[2019-05-02] MEDS: HUMALOG SUBQ SCH ×4 (06:23→21:03)
[2019-05-02 06:57] LABS: ALBUMIN 3.5 g/dL (3.5-5.0); CALCIUM 8.5 mg/dL (8.8-10.2); CREATININE 2.5 mg/dL (0.7-1.2); PHOSPHORUS 1.8 mg/dL (2.7-4.5); POTASSIUM 3.2 mmol/L (3.5-5.1)
[2019-05-02 06:58] LABS: HEMATOCRIT 33.4 % (42.0-52.0); MCH 26.8 PG (27-31); MCHC 32.9 g/dL (33-37); MCV 81.3 FL (81-99); MPV 9.9 FL (7.4-10.4); RBC 4.11 XMIL (4.7-6.1); WBC 5.97 X1000 (4.8-10.8)
--- NOTE | 2019-05-02 07:43 | INFECTIOUS DISEASE PROGRESS NO ---
DATE: 05/02/2019 PRESENT ILLNESS: The patient is being treated for pneumonia. MEDICATIONS: This is day 3 of treatment with the combination of Zyvox and meropenem. PHYSICAL EXAMINATION: Vital Signs: Temperature is 98.1 degrees, pulse 81, respirations 18, blood pressure 167/85. General: This is an ill-appearing elderly male. He is in no acute distress. Head/eyes/ears/nose/throat: He can hear my spoken words and see near objects. I did not see any white patches in his mouth. Neck: No pain with movement. Lungs: Clear to auscultation. Cardiovascular: Heart rate is regular. Abdomen: Soft and nontender. Neurologic: The patient is awake. He asks me about him going home today. I told him all of the doctors treating the patient and the patient need to discuss about the patient going home. I think for right now he needs to be in the hospital. LABORATORY AND X-RAY: Chest x-ray shows a decrease in the right lower lobe infiltrate. The patient's CBC shows a white blood cell count of 5970, hemoglobin 11 and platelet count 166,000. The patient's blood gases show a pH of 7.65, a PO2 of 174 and a pCO2 of 35. The creatinine is 2.5. The GFR is 26. ASSESSMENT AND PLAN: Patient has pneumonia. He may also have pulmonary venous congestion. My plan is to continue with his current antibiotic treatments. The patient does have only a minimally decreased IgG level and because it is so minimally low that I do not think it is clinically important. I definitely feel the patient does not need an immunoglobulin infusion. COMORBIDITIES: Patient is elderly. He has a renal transplant and is on immunosuppressive medication. The patient also has renal failure, diabetes mellitus, congestive heart failure, hypertension and obesity. cc: David Chaidez MD
[2019-05-02] MEDS: CELLCEPT PO SCH ×2 (08:50→21:03)
[2019-05-02] MEDS: APRESOLINE PO SCH ×3 (08:50→21:02)
[2019-05-02] MEDS: SENSIPAR PO SCH ×2 (08:50→21:03)
[2019-05-02] MEDS: ZAROXOLYN PO SCH (08:50)
[2019-05-02] MEDS: PHOSLO PO SCH ×3 (08:50→17:17)
[2019-05-02] MEDS: COREG PO SCH ×2 (08:50→21:03)
[2019-05-02] MEDS: PROGRAF PO SCH ×2 (08:51→21:03)
[2019-05-02] MEDS: LACTULOSE PO SCH ×2 (08:51→21:04)
[2019-05-02] MEDS: DULCOLAX PR SCH (08:51)
[2019-05-02] MEDS: ASPIRIN PO SCH (08:51)
[2019-05-02] MEDS: ADALAT CC PO SCH (08:51)
[2019-05-02] MEDS: XOPENEX NEB INH SCH ×3 (09:02→21:20)
[2019-05-02] MEDS: ZYVOX 600 MG/D5W 600 MG/300 ML IVPB IV SCH ×2 (09:55→22:42)
[2019-05-02] MEDS ORDERED: POTASSIUM CHLORIDE 20% LIQUID PO ONE (10:53)
[2019-05-02] MEDS ORDERED: POTASSIUM PHOSPHATE 30 MMOL in NS 250 ML IV ONE (11:01)
--- NOTE | 2019-05-02 11:14 | PROGRESS NOTE ---
DATE: 05/02/2019 SUBJECTIVE: Mr. Pineda is feeling better. Feels like he could go to the floor. He remains afebrile. OBJECTIVE: Temperature 98.3 degrees, pulse 64, respirations 18, blood pressure 147/71. Pupils are equal and round. Lungs are clear in all lung good. Cardiovascular Examination: Regular rhythm rate without murmur or S3. Abdomen is soft. Skin is warm and dry. Urine output is 4700 mL. ASSESSMENT AND PLAN: 1. This is day 3 of treatment with a combination of Zyvox and meropenem, treating him for pneumonia. Chest x-ray from this morning, mild interval improvement. Clinically, he has improved. 2. Acute kidney injury overlying history of renal transplantation. His creatinine was 2.8 yesterday. Urine output has improved and creatinine is down to 2.5 today. Lab today, sodium 130, potassium 3.2, chloride 81, bicarbonate 33, BUN 60, creatinine 2.5, blood sugar 220, 258, 134, 156. 3. Diabetes mellitus type 2. Sugar is under good control. 4. Fluid overload secondary to renal failure and diastolic dysfunction. That is improving. 5. I have supplemented his potassium and his phosphorus. Note, his phosphorus is still low so I think I will give him some K-Phos and see if we can move him to the floor. cc: Fede Amezcua MD
--- NOTE | 2019-05-02 12:49 | NEPHROLOGY PROGRESS NOTE ---
DATE: 05/02/2019 SUBJECTIVE: He looks good. He is on nasal cannula oxygen, sleeping but easily arousable. No shortness of breath, asking to go home. OBJECTIVE: Vital Signs: Blood pressure 159/60, heart rate 71, respirations 16, afebrile. Intake 2 L, output 2.7 L. General: No acute distress. Skin: Warm and dry. Neck: Neck veins are not appreciated. Heart: Regular. Lungs: Equal, shallow, no crackles. Abdomen: Soft, nontender. Bowel sounds are present. Trace edema on the pannus, none in the legs. IMPRESSION: Acute kidney injury. Baseline creatinine 1.5. History of renal transplantation. Acute kidney injury is recovering. Electrolytes are acceptable. Volume status is approaching normal. He is currently on his routine outpatient dose of tacrolimus and mycophenolate. He is receiving furosemide and metolazone. I will stop the metolazone after today and observe his ongoing status. cc: Jhonny Sandra MD
[2019-05-02] MEDS: CRESTOR PO SCH (21:03)
[2019-05-02] MEDS: LANTUS INSULIN SUBQ SCH (21:04)
[2019-05-03] MEDS: SOLU-CORTEF IV SCH (02:22)
[2019-05-03] MEDS: MERREM 500 MG in NS 50 ML IV SCH ×2 (02:22→08:53)
[2019-05-03] MEDS: ATROVENT NEB INH SCH ×4 (03:00→22:46)
[2019-05-03 05:24] LABS: ALLEN TEST YES; BE 14.5 mmoll (-3.0-3.0); BLOOD TYPE ARTERIAL; HCO3-(ACT) 36.2 mmoll (20.0-26.0); METHB 1.1 % (0.0-1.5); O2(CT) 15.8 mL/dL (15.0-23.0); O2HB 93.4 % (95.0-99.0); PCO2(98.6) 48 mmHg (35-45); PO2(98.6) 66 mmHg (60-100); SAMPLE BLOOD; SAO2 96.9 % (95.0-100.0); pH(98.6) 7.52 (7.35-7.45)
[2019-05-03 05:25] LABS: MODALITY CANNULA
[2019-05-03 06:16] LABS: HEMATOCRIT 35.5 % (42.0-52.0); HEMOGLOBIN 11.4 g/dL (14.0-18.0); MCH 26.2 PG (27-31); MCHC 32.1 g/dL (33-37); MCV 81.6 FL (81-99); RBC 4.35 XMIL (4.7-6.1); RDW 15.2 % (11.5-14.5); WBC 6.54 X1000 (4.8-10.8)
[2019-05-03 06:33] LABS: ALBUMIN 3.9 g/dL (3.5-5.0); CREATININE 2.1 mg/dL (0.7-1.2); PHOSPHORUS 2.8 mg/dL (2.7-4.5); POTASSIUM 3.2 mmol/L (3.5-5.1)
--- NOTE | 2019-05-03 07:05 | Diag Imaging Result Doc PS360 ---
EXAM: CHEST-PORTABLE 05/03/2019 HISTORY: respiratory failure TECHNIQUE: AP portable at 0517 COMMENT: There is some alveolar opacity in both lower lobes obscuring the left hemidiaphragm and to some extent the right. The heart size appears to be enlarged. Compared to 05/02/2019, there is denser opacification of the right lower lobe. IMPRESSION: Pulmonary edema and/or pneumonia. Cardiomegaly. Electronically signed by Rob Adamson 05/03/2019 7:03 AM
[2019-05-03] MEDS: HUMALOG SUBQ SCH ×4 (07:06→21:49)
[2019-05-03] MEDS: PROTONIX IV SCH (07:06)
[2019-05-03] MEDS: LASIX PO SCH ×2 (08:00→21:46)
[2019-05-03] MEDS: COREG PO SCH ×2 (08:00→21:46)
[2019-05-03] MEDS: ASPIRIN PO SCH (08:01)
[2019-05-03] MEDS: PROGRAF PO SCH ×2 (08:01→21:47)
[2019-05-03] MEDS: CELLCEPT PO SCH ×2 (08:01→21:46)
[2019-05-03] MEDS: DULCOLAX PR SCH (08:01)
[2019-05-03] MEDS: ADALAT CC PO SCH (08:01)
[2019-05-03] MEDS: SENSIPAR PO SCH ×2 (08:01→21:47)
[2019-05-03] MEDS: APRESOLINE PO SCH ×3 (08:01→21:46)
[2019-05-03] MEDS: LACTULOSE PO SCH ×2 (08:01→21:47)
[2019-05-03] MEDS: PHOSLO PO SCH ×3 (08:01→17:17)
[2019-05-03] MEDS ORDERED: POTASSIUM PHOSPHATE 30 MEQ in NS 250 ML IV ONE (09:20)
[2019-05-03] MEDS: ZYVOX 600 MG/D5W 600 MG/300 ML IVPB IV SCH (09:20)
--- NOTE | 2019-05-03 09:44 | NEPHROLOGY PROGRESS NOTE ---
DATE: 05/03/2019 DATE AND TIME SEEN: On 05/03/2019 at 0650 hours. SUBJECTIVE: Mr. Pineda is resting quietly in bed. Head of the bed is elevated. He states that he is feeling much better today. OBJECTIVE: His most recent vital signs, temperature 97.6 degrees, blood pressure 166/59, heart rate 64, respirations are 14. He is on 4 L nasal cannula, last recorded saturation 97%. He has had 2065 in and 2350 out to Flores catheter. LABS: Sodium is 127, potassium is 3.2, chloride 78, CO2 of 34, BUN 58, creatinine 2.1 glucose 184. His anion gap is 15, calcium 8, phosphorus 2.8, albumin 3.9. White count 6.54, hemoglobin 11.4, hematocrit 35.5 with a platelet count of 162,000. ABGs, pH 7.52, CO2 of 48, PO2 of 66, bicarbonate 36.2, and this is on 4 L with a lactate of 2. Chest x-ray this morning shows continued pulmonary edema versus pneumonia with cardiomegaly. PHYSICAL EXAMINATION: General: This is a 69-year-old white male. He is resting quietly in bed. He appears chronically ill, no acute distress. Skin: Warm and dry. HEENT: Normocephalic, atraumatic. Conjunctiva is pale pink. Mucous membranes are dry. Neck: Supple. Trachea midline. The patient has no evidence of JVD in the upright position. Cardiovascular: He is regular rate and rhythm. He has a soft systolic murmur. Lungs: Clear to auscultation bilaterally, equal excursion. Remains on O2 support. Abdomen: Large, round, soft, nontender. Positive bowel sounds. Palpable donor kidney to the right lower quadrant, nontender. Genitourinary: Not inspected. Flores catheter is in place. Extremities: Continues with trace to 1+ lower extremity edema. This is improved in the last 48 hours. Neurological: He is alert and oriented x3. ASSESSMENT AND PLAN: 1. Acute kidney injury on chronic kidney disease stage 4, status post renal transplant. The patient remains on his transplant medications of CellCept and Prograf. Adequate urine output. We will discontinue his Flores catheter and continue to monitor his labs. 2. Fluid volume overload associated with congestive heart failure. We will change patient's Lasix to 40 mg by mouth instead of intravenously, discontinue his Flores catheter. We will place him on a 1.5 liter fluid restriction. 3. Electrolytes. Sodium is now down to 127 over the last 48 hours. Again, we will place him on a 1.5 liter fluid restriction and reevaluate numbers in the morning. Potassium is also 3.2. We will give him a x1 potassium supplement if not already completed. 4. Acidosis. The patient is actually alkalotic. We will decrease his oxygen to 3 liters nasal cannula. 5. Anemia. This is within target. I would like to thank you for allowing us to follow with this patient. Dictated by ISAAK Wagner for Jhonny Sandra MD Face to face encounter, data reviewed, discussed with Joseph Stuart on 05/03/19. I agree with the above assessment and plan of care. cc: ISAAK Wagner MD [facility]
[2019-05-03] MEDS: XOPENEX NEB INH SCH ×3 (09:46→22:46)
[2019-05-03] MEDS: MEDROL PO SCH ×3 (11:59→21:46)
[2019-05-03] MEDS ORDERED: MEDROL DOSEPAK PO SCH (12:00)
--- NOTE | 2019-05-03 13:49 | INFECTIOUS DISEASE PROGRESS NO ---
DATE: 05/03/2019 ADDENDUM: The patient's kidney function has improved, and his Vas-Cath in the groin area is going to be removed. I am going to go ahead and stop his meropenem and instead put him on ciprofloxacin. Some of the side effects of the antibiotic including rash, diarrhea, seizures, and tendon rupture have been explained to the patient. He agrees with treatment. cc: David Chaidez MD
--- NOTE | 2019-05-03 13:49 | INFECTIOUS DISEASE PROGRESS NO ---
DATE: 05/03/2019 PRESENT ILLNESS: The patient has a bibasilar pneumonia. MEDICATIONS: This is day 4 of treatment with Zyvox and meropenem. PHYSICAL EXAMINATION: Vital Signs: Temperature is 97.7 degrees, pulse 72, respirations 16, blood pressure is 148/55. General: This is an ill-appearing, elderly male. He is in no acute distress, except when he has some coughing spells. HEENT: He can hear my spoken words and see near objects. He does not have any white coating on his tongue. Neck: No pain with movement. Lungs: Clear to auscultation. Cardiovascular: Heart rate is regular. Abdomen: Soft and nontender. Neurologic: The patient is alert. He can move his extremities. There is no tremor. IMAGING AND LABORATORY DATA: CBC shows a white count of 6540, hemoglobin 11.4, platelet count 162,000. Blood gases show a pH of 7.52, a PO2 of 66, and a pCO2 of 48. Creatinine is 2.1. GFR is 31. Procalcitonin is 0.26. Sputum grew normal fabrizio. Blood cultures are negative. Chest x- ray shows a bibasilar pneumonia. ASSESSMENT AND PLAN: The patient has a bibasilar pneumonia. I am increasing his dose of meropenem to 1 gram intravenously every 8 hours because his kidney function has improved. Also, I am changing Zyvox from intravenous to oral. COMORBIDITIES: The patient is elderly. He has a renal transplant and is on immunosuppressive medication. The patient also has renal failure, diabetes mellitus, congestive heart failure, hypertension, and obesity. cc: David Chaidez MD
--- NOTE | 2019-05-03 16:46 | PROGRESS NOTE ---
DATE: 05/03/2019 SUBJECTIVE: He is feeling better. Our plan is to get his femoral catheter out and get him set up to go home tomorrow. OBJECTIVE: Vital Signs: Temp is 97.7 degrees, pulse 75, respirations 16, blood pressure 153/72. HEENT: Pupils are equal and round. Lungs: Clear in all lung good. Cardiovascular: Regular rhythm and rate without murmur or S3. Urine Output: His urine output was 3500 mL. ASSESSMENT AND PLAN: The patient's kidney function is improved. His Vas-Cath in the groin is going to be removed, and then he will stop his meropenem, instead put him on ciprofloxacin, so the side effects of antibiotic to include rash, diarrhea, seizures, and tendon rupture have been explained to him. His acute kidney injury, he has chronic kidney disease stage 4, status post renal transplant. The patient remains on his transplant medications, CellCept, Prograf, adequate urine output. Fluid volume overload and congestive heart failure. He is on Lasix 40 mg by mouth instead of intravenous and continue his Flores catheter. He is on 1.5 liters of fluid restriction. We will see if they want they Flores catheter taken out tomorrow. His electrolytes sodium still a little on the low side. Place him on 1.5 liters of fluid restriction and reevaluate his numbers. Potassium was 3.2. The patient is actually alkalotic, and we have decreased his oxygen down, and his anemia is within target. REVIEW OF HIS ORDERS: He is on Lantus insulin 50 units subcutaneously every night at bedtime, Crestor 10 mg every night at bedtime, Zyvox 600 mg p.o. every 12 hours, aspirin 81 mg a day, calcium acetate 667 mg p.o. t.i.d., Coreg 25 mg b.i.d., Sensipar 30 mg p.o. b.i.d., Cipro 500 mg b.i.d., Lasix 40 mg b.i.d., Apresoline 25 mg p.o. t.i.d., ipratropium bromide inhalation 0.5 mg every 6 hours, lactulose 30 mL b.i.d. I think we can stop his ipratropium when he goes home and his Xopenex. He is on methylprednisone 12 mg p.o. every 12 o'clock at midday and mycophenolate 250 mg p.o. b.i.d., nifedipine ER 30 mg daily, Protonix 40 mg daily, Prograf 0.5 mg p.o. b.i.d., potassium chloride was given just to supplement his potassium, today it is 3.2. Sodium 127, creatinine at 2.1, which continues to go down. It was 2.8 on . cc: Fede Amezcua MD
[2019-05-03] MEDS ORDERED: MERREM 1 GM in NS 50 ML IV SCH (17:00)
[2019-05-03] MEDS: CIPRO PO SCH ×2 (17:17→21:51)
[2019-05-03] MEDS: ZYVOX PO SCH (21:46)
[2019-05-03] MEDS: CRESTOR PO SCH (21:46)
[2019-05-03] MEDS: LANTUS INSULIN SUBQ SCH (21:47)
[2019-05-04 04:56] LABS: ALLEN TEST YES; BE 12.2 mmoll (-3.0-3.0); BLOOD TYPE ARTERIAL; HCO3-(ACT) 34.1 mmoll (20.0-26.0); METHB 1.1 % (0.0-1.5); O2(CT) 19.5 mL/dL (15.0-23.0); PCO2(98.6) 48 mmHg (35-45); PO2(98.6) 50 mmHg (60-100); SAMPLE BLOOD; SAO2 90.4 % (95.0-100.0); THB 15.9 g/dL (11.5-17.4)
[2019-05-04 04:59] LABS: O2HB 87.4 % (95.0-99.0)
[2019-05-04 05:00] LABS: MODALITY CANNULA
[2019-05-04] MEDS: ATROVENT NEB INH SCH ×3 (05:00→15:31)
[2019-05-04 06:01] LABS: HEMOGLOBIN 11.3 g/dL (14.0-18.0); MCH 26.8 PG (27-31); MCHC 32.3 g/dL (33-37); MCV 83.1 FL (81-99); RBC 4.21 XMIL (4.7-6.1); RDW 15.4 % (11.5-14.5); WBC 6.36 X1000 (4.8-10.8)
[2019-05-04] MEDS: HUMALOG SUBQ SCH ×2 (06:14→12:39)
[2019-05-04 06:34] LABS: ALBUMIN 3.9 g/dL (3.5-5.0); CALCIUM 8.1 mg/dL (8.8-10.2); CREATININE 1.9 mg/dL (0.7-1.2); PHOSPHORUS 3.2 mg/dL (2.7-4.5); POTASSIUM 3.7 mmol/L (3.5-5.1)
[2019-05-04] MEDS ORDERED: PROTONIX PO SCH (07:00)
--- NOTE | 2019-05-04 07:26 | Diag Imaging Result Doc PS360 ---
EXAM: CHEST-PORTABLE INDICATION: respiratory failure TECHNIQUE: One view COMPARISON: 05/03/2019 FINDINGS: The consolidation at the right lung base has improved marginally. The consolidation the left lung base is approximately stable. No new consolidations are identified. Cardiac silhouette is stable. IMPRESSION: Marginal improvement on the right. Stable chest, otherwise. Electronically signed by Bob Becker 05/04/2019 7:23 AM
--- NOTE | 2019-05-04 07:27 | INFECTIOUS DISEASE PROGRESS NO ---
DATE: 05/04/2019 PRESENT ILLNESS: The patient has a bibasilar pneumonia. MEDICATIONS: This is day 5 of treatment with Zyvox and day 1 of treatment for ciprofloxacin. Prior to the patient being on ciprofloxacin, he was on meropenem. PHYSICAL EXAMINATION: Vital Signs: Temperature is 97.7 degrees, pulse 62, respirations 18, blood pressure is 145/58. General: This is an ill-appearing elderly male, however he does look much better than when he came in. He is in no acute distress. He was not coughing today nearly as much as he did yesterday. Head/eyes/ears/nose/throat: He can hear my spoken words and see near objects. He does not have any white patches in his mouth. Neck: No pain with movement of the neck. Lungs: Clear to auscultation. Cardiovascular: Heart rate is regular. Abdomen: Soft and nontender. Neurologic: The patient is alert. He can move his extremities. He does not have a tremor. LAB AND X-RAY STUDIES: I looked at the patient's x-ray. It seemed to me that there are bibasilar infiltrates with the right side more prominent than the left side. That is my reading, but the radiologist's report of the x-ray is not yet back. CBC shows a white count of 6360, hemoglobin 11.3 and platelet count 135,000. Blood gases show a pH of 7.5, a PO2 of 50, and a pCO2 of 48. Creatinine is 1.9. GFR is 35. ASSESSMENT AND PLAN: Patient has a bibasilar pneumonia. I have electronically sent prescriptions for Zyvox and ciprofloxacin to be taken for 10 days to the patient's pharmacy of choice which is [facility] the [facility]. Some of the side effects of the antibiotics again were explained to the patient, namely hematotoxicity, rash, diarrhea, seizures and tendon rupture. The patient agrees with treatment. My plan is to have the patient come back to my office in 10 days for follow-up examination, which will include a physical exam, a chest x-ray, a CBC and creatinine. COMORBIDITIES: The patient is elderly. He has a renal transplant and is on immunosuppressive medication. He also has renal failure, diabetes mellitus, congestive heart failure, hypertension and obesity. cc: MD KARLIE Lomax
[2019-05-04] MEDS: XOPENEX NEB INH SCH ×2 (10:37→15:31)
[2019-05-04] MEDS: COREG PO SCH (10:40)
[2019-05-04] MEDS: APRESOLINE PO SCH ×2 (10:41→13:27)
[2019-05-04] MEDS: CELLCEPT PO SCH (10:41)
[2019-05-04] MEDS: MEDROL PO SCH ×2 (10:41→13:27)
[2019-05-04] MEDS: ZYVOX PO SCH (10:41)
[2019-05-04] MEDS: CIPRO PO SCH (10:41)
[2019-05-04] MEDS: PHOSLO PO SCH ×2 (10:41→13:27)
[2019-05-04] MEDS: PROGRAF PO SCH (10:41)
[2019-05-04] MEDS: ASPIRIN PO SCH (10:41)
[2019-05-04] MEDS: SENSIPAR PO SCH (10:42)
[2019-05-04] MEDS: LASIX PO SCH (10:42)
[2019-05-04] MEDS: DULCOLAX PR SCH (10:42)
[2019-05-04] MEDS: LACTULOSE PO SCH (10:43)
--- NOTE | 2019-05-04 12:17 | NEPHROLOGY PROGRESS NOTE ---
DATE: 05/04/2019 SUBJECTIVE: He is anticipating discharge. He is now on room air with no shortness of breath. He has been out of bed. OBJECTIVE: Vital Signs: Blood pressure 161/60, heart rate 71, respirations 19, afebrile. General: No acute distress. Skin: Warm and dry. Neck: Neck veins are not appreciated. Heart: Regular. No gallops. Lungs: Equal. No crackles or wheezes. Abdomen: Soft, nontender. Bowel sounds are present. Extremities: Trace edema. No clubbing or cyanosis. IMPRESSION: 1. Acute kidney injury, improving. Baseline creatinine 1.5 to 1.7. Should continue to improve. We will see him in the office in 2 weeks. 2. Hypertension. Blood pressure is above target. He typically takes nifedipine 90 mg twice daily at home and he is currently only receiving 30 mg. Would discharge on 60 mg daily, and he will monitor his pressure at home and discuss with us as needed. 3. Volume status. Appears euvolemic. He will take 40 mg of Lasix once daily at home and monitor his weight and adjust diuretics as he has previously been instructed to do. cc: Jhonny Sandra MD
[2019-05-04 15:53] VITALS: BP 154/57
--- NOTE | 2019-05-04 16:15 | DISCHARGE SUMMARY ---
ADMISSION DATE: 04/21/2019 DISCHARGE DATE: He is followed by Dr. Kartik Crump. This is a 69-year-old who had a history of renal transplant 2012, congestive heart failure is mainly diastolic, diabetes mellitus type 2, hypertension, presented to the emergency room after complaining shortness of breath which has progressed for the last 3 or 4 days. He is on BiPAP and they put him on BiPAP in the emergency room. PAST MEDICAL HISTORY: 1. Renal transplant 2012. 2. Hypertension. 3. Diabetes mellitus type 2. 4. Congestive heart failure. 5. Coronary artery disease status post coronary stent. 6. Right carotid artery stenosis. 7. Pulmonary hypertension. 8. Morbid obesity. PAST SURGICAL HISTORY: 1. Renal transplant 2012. 2. Appendectomy. 3. Cardiac stent . ADMISSION DIAGNOSIS: Appeared to have some pulmonary venous hypertension, pulmonary edema. He had a myocardial perfusion scan done in November of this last year and his response from the Lexiscan was negative for chest pain demonstrated fixed, mildly diminished activity in the basal and midinferior wall corresponding with preserved regional wall motion most consistent with diaphragm attenuation. Echocardiogram from July 2018 technically difficult study, mild sclerosis, trileaflet aortic valve demonstrated normal aortic opening. Peak gradient was 13 mmHg. Estimated PA pressure was 40 mmHg from mild pulmonary hypertension. His ejection fraction was 55%. His chamber sizes was normal so patient was admitted. He was diuresed, had some chronic kidney disease associated with renal transplant, appeared to have acute on chronic kidney injury. Pulmonary was following Dr. Baldwin felt he had acute hypoxemic respiratory failure, congestive heart failure exacerbation, possible pneumonia. Given antibiotics, bronchodilators. Had extremity venous study done, normal venous compression, normal venous flow, no obvious DVT. Followup chest x-ray on 04/24 still some pulmonary hypertension. Nephrology was asked to follow Dr. Sandra chronic kidney disease in context of history of renal transplant. Baseline creatinine 1.5, appeared to have mild volume overload which is improved. Dr. Sandra added Zaroxolyn and the patient showed some steady improvement. Appeared he has acute tubular necrosis and felt needed to dialyze in order to get some fluid off and he did, he underwent some dialysis therapy with SLED therapy and his volume improved, remained afebrile. Infectious Disease was following for bibasilar pneumonia, which radiographically this improved as well and his chest x-ray on 05/04 marginally improved the right stable chest otherwise. He wanted to go home and so plan to set him up, start him on ciprofloxacin and will get home health set up. It looks like he will need oxygen as well as set up 2 L of nasal cannula. DISCHARGE MEDICATIONS: Aspirin 81 mg a day, PhosLo 667 mg p.o. t.i.d., Coreg 25 mg b.i.d., Sensipar 30 mg b.i.d., Cipro 500 mg b.i.d., Lasix 40 mg b.i.d., Apresoline 25 mg t.i.d., Lantus insulin 50 units subcu at bedtime, lactulose 30 mL b.i.d. He will stop the Zyvox and he is on a Medrol Dosepak. I think he is going to be on the Zyvox. His plan was to do the Zyvox but I think that could not afford that so he will be on Cipro and then tacrolimus 0.5 mg b.i.d., Crestor 10 mg at bedtime, I think I will put him back on his prednisone 0.5 mg daily. cc: Fede Amezcua MD
[2019-05-05] MEDS ORDERED: ADALAT CC PO SCH (09:00)
== END 2019-05-04 18:31 | disposition home health service (06) | DRG 291 ==
LOC: ED 08:45 → 2N 15:12 → SUATTDRO 15:12 → ICU 04-24 17:10 → 2N 05-02 14:38
PROVIDERS: ATTEND Emergency Medicine